=== PATIENT | female | born 1945 | race Native Hawaiian/Other Pacific Islander ===

== ENCOUNTER 2019-08-26 11:44 | Outpatient (CLI) | payer MEDICARE, SELFPAY | END 2019-08-26 11:45 | disposition home or self-care (01) | LOC: ANHLAB 11:44 | PROVIDERS: PCP Internal Medicine; Visit Provider Nurse Practitioner Family | DX: J30.9 Allergic rhinitis, unspecified (principal) | CPT/HCPCS: 36415; 82785; 86003 ==

== ENCOUNTER 2019-09-22 13:01 | Outpatient (CLI) | payer MEDICARE, SELFPAY ==
--- NOTE | 2019-09-22 13:04 | ECG_ITS ---
Measurements Intervals [place] Rate: 86 P: 57 MT: 169 QRS: 10 QRSD: 94 T: 48 QT: 373 QTc: 446 Interpretive Statements SINUS RHYTHM DELAYED PRECORDIAL R/S TRANSITION BASELINE ARTIFACT- I, II, III, AVR, AVL, AVF BORDERLINE ECG Electronically Signed On 09-22-2019 13:53:04 CDT by Cayetano Jung D.O.
[2019-09-22 13:25] LABS: Hemoglobin 13.1 g/dL (12.0-15.0)
[2019-09-22 13:37] LABS: Blood Urea Nitrogen 9 mg/dL (7-17); Calcium 9.4 mg/dL (8.4-10.2); Carbon Dioxide 25 mmol/L (22-30); Chloride 99 mmol/L (98-107); Estimated Glomerular Filt Rate > 60; Glucose 119 mg/dL (65-105); Potassium 3.7 mmol/L (3.4-5.0); Sodium 137 mmol/L (137-145)
== END 2019-09-22 13:02 | disposition home or self-care (01) ==
PROVIDERS: Anesthesiology; PCP Internal Medicine; Visit Provider Orthopaedic Surgery
DX: I10 Essential (primary) hypertension (principal); E11.9 Type 2 diabetes mellitus without complications; D50.0 Iron deficiency anemia secondary to blood loss (chronic); R94.31 Abnormal electrocardiogram [ECG] [EKG]
CPT/HCPCS: 36415; 80048; 85014; 85018; 93005

== ENCOUNTER 2019-11-25 08:21 | Outpatient (CLI) | payer MEDICARE, SELFPAY ==
[2019-11-25 08:39] LABS: Hemoglobin 11.5 g/dL (12.0-15.0)
[2019-11-25 08:58] LABS: Blood Urea Nitrogen 8 mg/dL (7-17); Calcium 9.3 mg/dL (8.4-10.2); Carbon Dioxide 30 mmol/L (22-30); Chloride 99 mmol/L (98-107); Estimated Glomerular Filt Rate > 60; Glucose 123 mg/dL (65-105); Potassium 3.7 mmol/L (3.4-5.0); Sodium 136 mmol/L (137-145)
== END 2019-11-25 08:22 | disposition home or self-care (01) ==
LOC: ANHSURGERY 08:24
PROVIDERS: Anesthesiology; PCP Internal Medicine; Visit Provider Orthopaedic Surgery
DX: E11.9 Type 2 diabetes mellitus without complications (principal); D50.0 Iron deficiency anemia secondary to blood loss (chronic)
CPT/HCPCS: 36415; 80048; 85014; 85018

== ENCOUNTER 2019-11-30 00:11 | Outpatient (CLI) | payer MEDICARE, SELFPAY ==
[2019-11-30 16:10] LABS: SARS-CoV-2 RNA PCR Negative
== END 2019-11-30 00:12 | disposition home or self-care (01) ==
LOC: ANHCOVIDDT 00:11
PROVIDERS: PCP Internal Medicine; Visit Provider Orthopaedic Surgery
DX: Z01.818 Encounter for other preprocedural examination (principal); Z11.59 Encounter for screening for other viral diseases; M75.101 Unspecified rotator cuff tear or rupture of right shoulder, not specified as traumatic
CPT/HCPCS: 87635; C9803; U0003

== ENCOUNTER 2019-12-02 01:29 | Day surgery (SDC) | payer MEDICARE, SELFPAY ==
[2019-09-17 12:38] VITALS: BMI 28.5
[2019-11-24 11:48] VITALS: BMI 28.5
--- NOTE | 2019-11-24 11:54 | PC.NURSE ---
PT STATES NO CHANGE IN HEALTH HX SINCE LAST INTERVIEW ON 09/17/19
--- NOTE | 2019-11-27 14:26 | PM.IMHP ---
H&P: HPI History of Present Illness Chief complaint: Right Rotator Cuff Repair Narrative: Jasmyn Moncada is a 74 year old female who presents with right shoulder pain chronic in nature. Pain radiates into her upper arm and is worse with overhead activities somewhat relieved by rest. She has weakness associated with the pain and problems raising her arm overhead. She can't do any heavy lifting or repetitive motion, the pain keeps her awake at night as well. Her symptoms are worsening with time. Despite conservative measures including cortisone therapy and anti-inflammatories or symptoms continue. An MRI scan was performed, this shows incomplete minimally retracted tear of the anterior aspect of the supraspinatus tendon of the right shoulder. She has small articular surface tear of the subscapularis tendon with a joint effusion. She has biceps tendon tenosynovitis without azeem evidence for a tear. There is mild hypertrophic degenerative change seen at the AC joint likely causing subacromial impingement. The infraspinatus and teres minor tendons are intact. At this point the patient is where the above findings she has failed conservative measures and discuss further treatment options in detail with Dr. Johnston she would now like to proceed with right shoulder surgical intervention. Review of Systems Review of Systems: All systems reviewed & are unremarkable except as noted in HPI and below PMFSH Past Medical History Medical History Acid reflux Anxiety and depression Arthritis Essential (primary) hypertension Fatty liver Heart palpitations History of anemia Hypothyroidism Hypovitaminosis D Iron deficiency anemia Lactic acidosis Major depressive disorder, single episode, unspecified Mixed hyperlipidemia On custodial drug therapy Post menopausal problems Thyroid disease Type 2 diabetes mellitus without complication Surgical History Surgical History H/O: hysterectomy Hx of cholecystectomy Hx of tonsillectomy Family History Family History Mother Hypertension Cerebrovascular accident Family history of diabetes mellitus in first degree relative Family history of congestive heart failure Father Family history of throat cancer Sibling Carcinoma of colon Family history of malignant neoplasm of breast Other Family history of coronary artery disease Social History Social History Smoking packs per day: 3 Smoking cigarettes per day: 60.0 Years smoked: 25 Smoking pack-years: 75.00 Smoking status: Former smoker Tobacco type: cigarettes Smoking end date: 07/08/06 Alcohol intake: never Gender identity (if verbalized by the patient): Female Meds Home Medications and Allergies Home Medications Medication Instructions Recorded Confirmed Type albuterol sulfate 2.5 mg INHALATION Q4H PRN 05/11/19 11/24/19 History albuterol sulfate 90 mcg/actuation 2 puff INHALATION Q4H PRN gm 05/11/19 11/24/19 History aerosol inhaler betamethasone dipropionate 0.05 % 1 applic TOPICAL DAILY PRN 05/11/19 11/24/19 History topical cream calcium carbonate 600 mg calcium 600 mg PO DAILY 05/11/19 11/24/19 History (1,500 mg) tablet cranberry fruit 450 mg tablet 450 mg PO DAILY 05/11/19 11/24/19 History pravastatin 20 mg tablet 20 mg PO DAILY #90 tablet 05/19/19 11/24/19 Rx losartan 100 1 tablet PO DAILY #90 tablet 05/29/19 11/24/19 Rx mg-hydrochlorothiazide 12.5 mg tablet benzonatate 200 mg capsule 200 mg PO TID PRN cap 06/25/19 11/24/19 History aspirin [Aspir-81] 81 mg PO DAILY 07/13/19 11/24/19 History ferrous sulfate 325 mg PO BID 07/13/19 11/24/19 History fluticasone propionate [Flonase 1 spray INTRANASAL DAILY 07/13/19 11/24/19 History Allergy Relief] sitagliptin [Januvia] 100 mg PO DAILY 07/13
[2019-12-02] VITALS (10 sets, daily range): BP systolic 135–154; BP diastolic 44–84; PULSE 83–97; RESP 11–20; TEMP 36.1–36.4; O2SAT 90–96
--- NOTE | 2019-12-02 07:11 | WPDHPUPDATE1 ---
History and Physical Update Update Date/Time: 12/02/19 07:11 History and Physical has been reviewed, including an updated exam of the patient. There are NO changes in the patient's condition. Risks, benefits, and alternatives have been discussed and questions answered. Patient agrees to proceed with procedure.
[2019-12-02 08:14] LABS: Glucose Point of Care 109 (65-105)
[2019-12-02] MEDS: LACTATED RINGERS 1,000 ML 30 ML IV CONT ×2 (08:15→11:20)
--- NOTE | 2019-12-02 08:21 | WPDANESEPPF ---
Anes - Initial Pre Proc Eval Procedure: Operation Date: 12/02/19 09:30 Proposed Procedures p Right Shoulder Arthroscopy, Acromioplasty, Open Distal Clavicle Excision, Rotator Cuff Repair, Proceed As Indicated - Lexx Johnston MD Date/Time: 12/02/19 08:21 Surgeon: Lexx Johnston MD Pre Op Diagnosis: Right Rotator Cuff Repair Patient Data Age: 74 Gender: F Height: 4 ft 11 in Weight: 63.2 kg Last Vital Signs Temp 36.4 C 12/02/19 07:45 Pulse 97 12/02/19 07:45 Resp 20 12/02/19 07:45 BP 135/56 L 12/02/19 07:45 Pulse Ox 96 12/02/19 07:45 Allergies Allergy/AdvReac Type Severity Reaction Status Date / Time codeine Allergy Unknown Unknown Verified 12/02/19 07:57 Home Medications Medication Instructions Recorded Confirmed Type albuterol sulfate 2.5 mg INHALATION Q4H PRN 05/11/19 11/24/19 History albuterol sulfate 90 mcg/actuation 2 puff INHALATION Q4H PRN gm 05/11/19 11/24/19 History aerosol inhaler betamethasone dipropionate 0.05 % 1 applic TOPICAL DAILY PRN 05/11/19 11/24/19 History topical cream calcium carbonate 600 mg calcium 600 mg PO DAILY 05/11/19 12/02/19 History (1,500 mg) tablet cranberry fruit 450 mg tablet 450 mg PO DAILY 05/11/19 12/02/19 History pravastatin 20 mg tablet 20 mg PO DAILY #90 tablet 05/19/19 12/02/19 Rx benzonatate 200 mg capsule 200 mg PO TID PRN cap 06/25/19 11/24/19 History aspirin [Aspir-81] 81 mg PO DAILY 07/13/19 12/02/19 History ferrous sulfate 325 mg PO BID 07/13/19 12/02/19 History fluticasone propionate [Flonase 1 spray INTRANASAL DAILY 07/13/19 12/02/19 History Allergy Relief] omeprazole 40 mg capsule,delayed 40 mg PO DAILY #90 cap 07/24/19 12/02/19 Rx release metformin 1,000 mg tablet 1,000 mg PO BID #180 tablet 08/11/19 12/02/19 Rx azelastine 137 mcg (0.1 %) nasal 137 mcg NASAL Q12H #30 ml 08/21/19 11/24/19 Rx spray aerosol glycopyrrolate 9 mcg-formoterol 2 puff INHALATION BID 08/21/19 12/02/19 History 4.8 mcg HFA aerosol inhaler levothyroxine 100 mcg tablet 100 mcg PO DAILY #90 tablet 09/28/19 12/02/19 Rx paroxetine HCl 10 mg tablet 10 mg PO DAILY #90 tablet 10/23/19 12/02/19 Rx montelukast 10 mg tablet See Rx Instructions .ROUTE 11/18/19 12/02/19 Rx .COMPLEX #90 tablet losartan 100 1 tablet PO DAILY #90 tablet 12/01/19 12/02/19 Rx mg-hydrochlorothiazide 12.5 mg tablet sitagliptin 100 mg tablet 100 mg PO DAILY #90 tablet 12/01/19 12/02/19 Rx hydrocodone-acetaminophen [Fajardo] 1 tablet PO Q6H PRN #40 tablet 12/02/19 Rx Laboratory Tests 12/02/19 08:11 POC Capillary Glucose 109 mg/dl mg/dl (65-105) Patient hx anesthesia problems: none Family hx anesthesia problems: none PMFSH Past Medical History Medical History Acid reflux Anxiety and depression Arthritis Essential (primary) hypertension Fatty liver Heart palpitations History of anemia Hypothyroidism Hypovitaminosis D Iron deficiency anemia Lactic acidosis Major depressive disorder, single episode, unspecified Mixed hyperlipidemia On senior living drug therapy Post menopausal problems Thyroid disease Type 2 diabetes mellitus without complication Surgical History Surgical History H/O: hysterectomy Hx of cholecystectomy Hx of tonsillectomy Family History Family History Mother Hypertension Cerebrovascular accident Family history of diabetes mellitus in first degree relative Family history of congestive heart failure Father Family history of throat cancer Sibling Carcinoma of colon Family history of malignant neoplasm of breast Other Family history of coronary artery disease Social History Social History Smoking packs per day: 3 Smoking cigarettes per day: 60.0 Years smoked: 25 Smoking pac
[2019-12-02] MEDS: ceFAZolin 2 GM/D5W 50 ML 2 GM/50 ML BAG IVPB (09:36)
[2019-12-02] MEDS: LIDO 1%/EPINEPHRINE 1:100,000 20 ML VIAL INFILTRATE (09:59)
--- NOTE | 2019-12-02 10:49 | P.OP_ITS ---
Procedure Note - Detailed Date of procedure: 12/02/19 Pre-op diagnosis: Right Rotator Cuff Repair, Acromioclavicular Arthr Post-op diagnosis: same Anesthesia: GETA Surgeon: Lexx Johnston MD Procedure: Patient brought to OR #&. General anesthetic administered. Standard, posterior, lateral and anterior superior portals made. Diagnostic arthroscopy performed. Large Rotator Cuff tear seen with 90% biceps rupture. Biceps debrided with an arthocare wand. Acromioplasty started. Subacromial decompression and synovium debrided. Shoulder opened. Distal clavicle removed (3mm). Edges bevelled. Deltoid split. Acromion rasped and large rotator cuff repair performed to debrided greater tuberosity. Augmented with a Juggernaut suture. Deltoid repaired to itself, the acromion and the trapezius with # 2 ethibond. Wound closed wit 2-0 vicryl and svitlana. Patient left the operating room in good condition. Transmission Maintenance Supervisor: Callum Mack Estimated blood loss (mL): 50 Drains: No Packing: No Pathology: none sent Complications: No immediate complications Condition: stable Disposition: PACU
[2019-12-02 12:14] LABS: Glucose Point of Care 109 (65-105)
--- NOTE | 2019-12-02 13:34 | SUR.PHASEII ---
DAUGHTER CALLED WHEN LEAVING PACU, AND IN OP. PT VOIDED X 1 IN RESTROOM.
== END 2019-12-02 13:30 | disposition home or self-care (01) ==
PROVIDERS: PCP Internal Medicine; Visit Provider Orthopaedic Surgery
PROC: (CPT 29805; principal; 2019-12-02 09:30)
DX: M75.101 Unspecified rotator cuff tear or rupture of right shoulder, not specified as traumatic (principal); M19.011 Primary osteoarthritis, right shoulder; I10 Essential (primary) hypertension; E11.9 Type 2 diabetes mellitus without complications; E78.2 Mixed hyperlipidemia; D50.9 Iron deficiency anemia, unspecified; E03.9 Hypothyroidism, unspecified; E55.9 Vitamin D deficiency, unspecified; F41.8 Other specified anxiety disorders; K21.9 Gastro-esophageal reflux disease without esophagitis; K76.0 Fatty (change of) liver, not elsewhere classified; Z79.82 Long term (current) use of aspirin; Z79.84 Long term (current) use of oral hypoglycemic drugs; Z87.891 Personal history of nicotine dependence
CPT/HCPCS: 29827; 29826; A4565; A9270; C1713; J0131; J0690; J1170; J2250; J2405; J2704; J3010; J7120

== ENCOUNTER 2020-01-01 07:52 | Outpatient (CLI) | payer MEDICARE, SELFPAY ==
[2020-01-01 09:08] LABS: Basophils Percent Auto 0.5 % (0.2-1.2); Eosinophils Absolute Auto 0.3 K/mm3 (0-0.3); Eosinophils Percent Auto 4.7 % (0-4.4); Hematocrit 32.7 % (37.0-47.0); Hemoglobin 10.1 g/dL (12.0-15.0); Immature Granulocyte Absolute 0.02 K/mm3 (0.00-0.031); Immature Granulocyte Percent A 0.3 % (0-0.5); Lymphocytes Absolute Auto 1.12 K/mm3 (0.9-3.2); Lymphocytes Percent Auto 17.5 % (18.3-44.2); Mean Corpuscular HGB Conc 30.9 g/dl (32-36); Mean Corpuscular Hemoglobin 27.7 pg (26-34); Mean Corpuscular Volume 89.8 fl (80-100); Mean Platelet Volume 8.8 fl (7.4-10.4); Monocytes Absolute Auto 0.4 K/mm3 (0.1-0.6); Monocytes Percent Auto 6.3 % (2.6-8.5); Neutrophils Absolute Auto 4.5 K/mm3 (1.3-6.7); Neutrophils Percent Auto 70.7 % (45.5-73.1); Platelet Count Result 477 k/mm3 (150-375); Red Blood Count 3.64 M/mm3 (4.2-5.4); Red Cell Distribution Width 15.3 % (11.5-14.5); White Blood Count 6.4 K/mm3 (4.5-10.0)
[2020-01-01 09:16] LABS: Hemoglobin A1C 5.8 % (<5.7)
[2020-01-01 09:22] LABS: Alanine Aminotransferase 16 U/L (4-35); Albumin Level 4.4 g/dL (3.5-5.1); Alkaline Phosphatase 63 U/L (38-126); Aspartate Amino Transferase 22 U/L (14-36); Bilirubin,Total 0.2 mg/dL (0.2-1.3); Blood Urea Nitrogen 8 mg/dL (7-17); Calcium 9.4 mg/dL (8.4-10.2); Carbon Dioxide 29 mmol/L (22-30); Chloride 98 mmol/L (98-107); Estimated Glomerular Filt Rate > 60; Glucose 109 mg/dL (65-105); Potassium 3.8 mmol/L (3.4-5.0); Sodium 136 mmol/L (137-145)
[2020-01-01 09:32] LABS: Iron 27 ug/dL (37-170)
[2020-01-01 09:41] LABS: Percent Iron Saturation 7 % (20-50)
[2020-01-01 10:08] LABS: Ferritin 8.71 ng/mL (11.1-264)
[2020-01-01 18:08] LABS: Creatinine Urine 58.2 mg/dL
[2020-01-01 18:42] LABS: MALB Creatinine Ratio < 10.3 mg/g (0-30); Microalbumin Urine Random < 6.0 mg/L (0-16.7)
== END 2020-01-01 07:53 | disposition home or self-care (01) ==
PROVIDERS: PCP Internal Medicine; Visit Provider Internal Medicine
DX: D50.0 Iron deficiency anemia secondary to blood loss (chronic) (principal); E11.9 Type 2 diabetes mellitus without complications
CPT/HCPCS: 36415; 80053; 82043; 82728; 83036; 83540; 83550; 85025

== ENCOUNTER 2020-03-30 10:46 | Outpatient (CLI) | payer MEDICARE, SELFPAY ==
[2020-03-30 11:25] LABS: Basophils Percent Auto 0.5 % (0.2-1.2); Eosinophils Absolute Auto 0.2 K/mm3 (0-0.3); Eosinophils Percent Auto 3.1 % (0-4.4); Hematocrit 38.9 % (37.0-47.0); Hemoglobin 12.7 g/dL (12.0-15.0); Immature Granulocyte Absolute 0.03 K/mm3 (0.00-0.031); Immature Granulocyte Percent A 0.4 % (0-0.5); Lymphocytes Absolute Auto 1.22 K/mm3 (0.9-3.2); Lymphocytes Percent Auto 16.4 % (18.3-44.2); Mean Corpuscular HGB Conc 32.6 g/dl (32-36); Mean Corpuscular Hemoglobin 28.7 pg (26-34); Mean Corpuscular Volume 87.8 fl (80-100); Mean Platelet Volume 9.2 fl (7.4-10.4); Monocytes Absolute Auto 0.5 K/mm3 (0.1-0.6); Monocytes Percent Auto 7.1 % (2.6-8.5); Neutrophils Absolute Auto 5.4 K/mm3 (1.3-6.7); Neutrophils Percent Auto 72.5 % (45.5-73.1); Platelet Count Result 430 k/mm3 (150-375); Red Blood Count 4.43 M/mm3 (4.2-5.4); Red Cell Distribution Width 15.9 % (11.5-14.5); White Blood Count 7.5 K/mm3 (4.5-10.0)
[2020-03-30 11:33] LABS: Hemoglobin A1C 5.4 % (<5.7)
[2020-03-30 11:36] LABS: Alanine Aminotransferase 21 U/L (4-35); Albumin Level 4.5 g/dL (3.5-5.1); Alkaline Phosphatase 55 U/L (38-126); Anion Gap 11 mmol/L (8-16); Aspartate Amino Transferase 25 U/L (14-36); Bilirubin,Total 0.2 mg/dL (0.2-1.3); Blood Urea Nitrogen 7 mg/dL (7-17); Calcium 9.5 mg/dL (8.4-10.2); Carbon Dioxide 25 mmol/L (22-30); Chloride 100 mmol/L (98-107); Cholesterol 164 mg/dL (0-200); Estimated Glomerular Filt Rate > 60; Glucose 122 mg/dL (65-105); HDL Direct 46 mg/dL; Potassium 3.8 mmol/L (3.4-5.0); Sodium 136 mmol/L (137-145); Triglycerides 158 mg/dL (<150)
[2020-03-30 11:47] LABS: LDL Cholesterol Direct 90 mg/dL
[2020-03-30 12:26] LABS: Add Urine Microscopic? NO; Appearance Urine Clear (Clear); Bilirubin Urine Negative (Negative); Blood Urine Negative (Negative); Color Urine Yellow (Yellow); Glucose Urine UA Negative (Negative); Ketones Urine Negative (Negative); Leukocyte Esterase Ur Negative LEU/UL (NEGATIVE); Nitrate Urine Negative (Negative); Protein Urine Negative (Negative); Specific Grav Ur 1.011 (1.001-1.035); Urobilinogen Urine Negative mg/dL (<2.0)
[2020-03-30 12:27] LABS: Iron 62 ug/dL (37-170)
[2020-03-30 12:37] LABS: Percent Iron Saturation 18 % (20-50)
[2020-03-30 12:53] LABS: Vitamin D 25 Hydroxy 33.5 ng/mL
== END 2020-03-30 10:47 | disposition home or self-care (01) ==
LOC: ANHLAB 10:48
PROVIDERS: PCP Internal Medicine; Visit Provider Internal Medicine
DX: J44.9 Chronic obstructive pulmonary disease, unspecified (principal); E11.9 Type 2 diabetes mellitus without complications; E03.9 Hypothyroidism, unspecified; D50.0 Iron deficiency anemia secondary to blood loss (chronic); I10 Essential (primary) hypertension; E78.2 Mixed hyperlipidemia; E55.9 Vitamin D deficiency, unspecified
CPT/HCPCS: 36415; 80053; 80061; 81003; 82306; 82728; 83036; 83540; 83550; 84443; 85025

== ENCOUNTER 2020-05-25 10:22 | Outpatient (CLI) | payer MEDICARE, SELFPAY ==
--- NOTE | ~2020-05-25 | CT_ITS ---
EXAMINATION:CT lung screening DATE: 05/25/2020 10:53 INDICATION: Personal history of tobacco dependence. Smoker who quit 13 years ago with 30 pack year hi story. TECHNIQUE: Computed tomography (CT) of the chest was performed without intravenous contrast. Automate d exposure control and iterative reconstruction technique were employed. The dose-length product (DLP ) was 65.52 mGy-cm. COMPARISON: Chest CT 05/19/2019 FINDINGS: There is mild atelectasis bilaterally. No pleural effusion. The thyroid is enlarged. The he art size is normal. There are coronary artery calcifications. No pericardial effusion. There are ziegler ges of cholecystectomy. There is severe thoracic spondylosis. IMPRESSION: 1. Lung-RADS category 1: Negative. Continue annual screening with noncontrast low-dose chest CT in 12 months. Reviewed, dictated and finalized at location A. STATION DEPARTMENT MANAGER IMPRESSION: 1. Lung-RADS category 1: Negative. Continue annual screening with noncontrast l ow-dose chest CT in 12 months.
== END 2020-05-25 10:23 | disposition home or self-care (01) ==
PROVIDERS: PCP Internal Medicine; Visit Provider Internal Medicine Critical Care Medicine
DX: Z12.2 Encounter for screening for malignant neoplasm of respiratory organs (principal); Z87.891 Personal history of nicotine dependence
CPT/HCPCS: G0297

== ENCOUNTER 2020-07-22 15:33 | Outpatient (CLI) | payer MEDICARE, SELFPAY ==
--- NOTE | ~2020-07-22 | XR_ITS ---
EXAMINATION: XR chest 2V DATE: 07/22/2020 16:20 INDICATION: Shortness of breath. TECHNIQUE: Frontal and lateral views of the chest were obtained. COMPARISON: Chest 2 views 11/26/2017 FINDINGS: The chest demonstrates clear lungs without pneumonia, pleural effusion, or pneumothorax. Th e heart size is normal. Surgical clips in the right upper quadrant are likely from cholecystectomy. IMPRESSION: 1. No acute cardiopulmonary disease. Reviewed, dictated and finalized at location A. SWARE VERIFIER
== END 2020-07-22 15:34 | disposition home or self-care (01) ==
PROVIDERS: PCP Internal Medicine; Visit Provider Nurse Practitioner Family
DX: R06.02 Shortness of breath (principal)
CPT/HCPCS: 71046

== ENCOUNTER 2020-07-28 08:14 | Outpatient (CLI) | payer MEDICARE, SELFPAY ==
[2020-07-28 08:45] LABS: Hematocrit 23.5 % (37.0-47.0); Mean Corpuscular HGB Conc 27.2 g/dl (32-36); Mean Corpuscular Hemoglobin 24.5 pg (26-34); Mean Platelet Volume 9.7 fl (7.4-10.4); Platelet Count Result 583 k/mm3 (150-375); Red Blood Count 2.61 M/mm3 (4.2-5.4); Red Cell Distribution Width 16.5 % (11.5-14.5); White Blood Count 9.9 K/mm3 (4.5-10.0)
[2020-07-28 08:54] LABS: Hemoglobin 6.4 g/dL (12.0-15.0)
[2020-07-28 09:56] LABS: Iron < 10 ug/dL (37-170)
[2020-07-28 10:07] LABS: Percent Iron Saturation < 2 % (20-50)
[2020-07-28 10:32] LABS: Ferritin 4.22 ng/mL (11.1-264)
[2020-07-28 11:32] LABS: Folic Acid 17.6 ng/mL (2.76->20)
== END 2020-07-28 08:15 | disposition home or self-care (01) ==
LOC: ANHLAB 08:16
PROVIDERS: Family Provider Internal Medicine; PCP Internal Medicine; Visit Provider Nurse Practitioner Family
DX: D50.0 Iron deficiency anemia secondary to blood loss (chronic) (principal)
CPT/HCPCS: 36415; 82607; 82728; 82746; 83540; 83550; 85027

== ENCOUNTER 2020-07-28 10:30 | Observation (INO) | payer MEDICARE, SELFPAY ==
[2020-07-28] VITALS (18 sets, daily range): BP systolic 111–157; BP diastolic 35–99; PULSE 62–113; RESP 12–21; TEMP 36.1–36.6; O2SAT 97–100; BMI 27.6
[2020-07-28 12:34] LABS: Basophils Absolute Auto 0.1 K/mm3 (0.0-0.1); Basophils Percent Auto 0.5 % (0.2-1.2); Eosinophils Absolute Auto 0.1 K/mm3 (0-0.3); Eosinophils Percent Auto 0.6 % (0-4.4); Hematocrit 24.6 % (37.0-47.0); Immature Granulocyte Absolute 0.14 K/mm3 (0.00-0.031); Immature Granulocyte Percent A 1.3 % (0-0.5); Immature Platelet Fraction Pct 3.1 % (0.9-11.2); Immature Reticulocyte Fraction 41.9 % (3.0-15.9); Lymphocytes Absolute Auto 1.08 K/mm3 (0.9-3.2); Lymphocytes Percent Auto 9.8 % (18.3-44.2); Mean Corpuscular HGB Conc 26.8 g/dl (32-36); Mean Corpuscular Hemoglobin 24.3 pg (26-34); Mean Corpuscular Volume 90.4 fl (80-100); Mean Platelet Volume 9.9 fl (7.4-10.4); Monocytes Percent Auto 9.3 % (2.6-8.5); Neutrophils Absolute Auto 8.6 K/mm3 (1.3-6.7); Neutrophils Percent Auto 78.5 % (45.5-73.1); Nucleated Red Blood Cells Absolute Auto 0.2 K/mm3 (0.0-0.012); Nucleated Red Blood Cells Perc 1.5 % (0.0-0.2); Platelet Count Result 675 k/mm3 (150-375); Red Blood Count 2.72 M/mm3 (4.2-5.4); Red Cell Distribution Width 16.6 % (11.5-14.5); Reticulocyte Hemoglobin Conten 18.5 pg (28.2-35.7); Reticulocyte Percent 6.73 % (0.7-4.3); Reticulocytes Absolute 0.18 B/L (32.2-175.7)
[2020-07-28 12:38] LABS: Prothrombin Time 13.3 Seconds (11.1-14.7)
[2020-07-28 12:42] LABS: Anion Gap 11 mmol/L (8-16); Blood Urea Nitrogen 13 mg/dL (7-17); Carbon Dioxide 26 mmol/L (22-30); Chloride 99 mmol/L (98-107); Estimated Glomerular Filt Rate > 60; Glucose 112 mg/dL (65-105); Potassium 3.4 mmol/L (3.4-5.0); Sodium 136 mmol/L (137-145)
[2020-07-28 12:47] LABS: Hemoglobin 6.6 g/dL (12.0-15.0)
[2020-07-28 12:48] LABS: Hypochromasia 2+ (NORMAL); Ovalocytes 2+ (NORMAL)
[2020-07-28 12:49] LABS: Polychromasia 1+ (NORMAL)
[2020-07-28 12:51] LABS: Band Neutrophils Percent 8 % (0-6); Lymphocytes Absolute Manual 1.21 K/mm3 (1.1-4.5); Monocytes Absolute Manual 0.11 K/mm3 (0.1-0.90); Monocytes Percent Manual 1 % (3-9); Neutrophils Absolute Manual 9.68 K/mm3 (1.7-7.2); Neutrophils Percent Manual 80 % (46-73); Nucleated Red Blood Cells 2 %; Platelet Estimate Adequate (Adequate); Total Cells Counted 100
--- NOTE | 2020-07-28 13:15 | ED.RECABL ---
HPI - Recheck/Abnormal Lab/Rx General Chief Complaint: Recheck/Abnormal Lab/Rx Stated Complaint: Needs Blood Transfusion Time Seen by Provider: 07/28/20 11:27 Source: patient Mode of arrival: ambulatory Limitations: no limitations History of Present Illness HPI narrative: 74-year-old female History of recurrent iron deficiency anemia, probably related to GI blood loss Has seen Dr. Sands as well as Dr. Lewis previously and sounds like most of her issues stem from colonic AVMs Has also seen Dr. Marc at some point and had iron infusions She was sent by her PCP because labs they obtained today showed a hemoglobin of 6.4 as well as iron and ferritin levels which were essentially nil She denies hematemesis melena bloody stools but notes that she does take iron so her stools are always dark She feels generally weak and fatigued for an indefinite amount of time but not worse anytime recently Related Data Home Medications Medication Instructions Recorded Confirmed albuterol sulfate 2.5 mg INHALATION Q4H PRN 05/11/19 07/27/20 betamethasone dipropionate 0.05 % 1 applic TOPICAL DAILY PRN 05/11/19 07/27/20 topical cream calcium carbonate 600 mg calcium 600 mg PO DAILY 05/11/19 07/27/20 (1,500 mg) tablet cranberry fruit 450 mg tablet 450 mg PO DAILY 05/11/19 07/27/20 aspirin [Aspir-81] 81 mg PO DAILY 07/13/19 07/27/20 ferrous sulfate 325 mg PO BID 07/13/19 07/27/20 fluticasone propionate [Flonase 1 spray INTRANASAL DAILY 07/13/19 07/27/20 Allergy Relief] sitagliptin 100 mg tablet 100 mg PO DAILY 07/11/20 07/27/20 Allergies Allergy/AdvReac Type Severity Reaction Status Date / Time codeine Allergy Unknown Unknown Verified 07/28/20 10:36 Review of Systems Review of Systems: All systems reviewed & are unremarkable except as noted in HPI and below Constitutional: Constitutional: Denies chills, Reports fatigue, Denies fever(s), Denies headache(s) and Reports weakness Eyes: Eyes: Reports no additional eye complaints and Denies change in vision ENT: Denies headache(s), Denies epistaxis, Denies nasal congestion and Denies sore throat Cardiovascular: Cardiovascular: Denies chest pain, Denies leg edema, Denies palpitations and Denies dyspnea Respiratory: Respiratory: Denies cough, Denies dyspnea and Denies wheezing Gastrointestinal: Gastrointestinal: Denies abdominal pain, Denies diarrhea, Denies nausea and Denies vomiting Genitourinary: Genitourinary: Denies hematuria, Denies urinary frequency and Denies dysuria Musculoskeletal: Musculoskeletal: Denies deformity, Denies arthralgias, Denies joint swelling, Denies muscle weakness and Denies numbness Integumentary/Breasts: Skin/Breast: Denies rash and Denies wounds Neurologic: Denies headache(s), Denies focal weakness, Denies numbness and Denies weakness Psychiatric: Psychiatric: Reports no additional psychiatric complaints Endocrine: Endocrine: Denies fatigue and Denies palpitations Hematologic/Lymphatic: Hematologic/Lymphatic: Denies easy bleeding and Denies easy bruising Allergic/Immunologic: Allergic/Immunologic: Denies wheezing PMFSH Past Medical History Medical History Acid reflux Anxiety and depression Arthritis Encounter for other screening for malignant neoplasm of breast Essential (primary) hypertension Fatty liver Heart palpitations History of anemia History of tobacco use Hypothyroidism Hypovitaminosis D Iron deficiency anemia Lactic acidosis Major depressive disorder, single episode, unspecified Mixed hyperlipidemia On intermodal truck driver drug therapy Post menopausal problems Thyroid disease Tobacco abuse Type 2 diabetes mellitus without complication Surgical History Surgical History H/O: hysterectomy History of rotator cuff surgery Hx of cholecystectomy Hx of tonsillectomy Family History Family History (Reviewed 07/27/20 @ 14:17 by Sarah
[2020-07-28] MEDS: SODIUM CHLORIDE 0.9% IV 250 ML 30 ML IV CONT (15:00)
--- NOTE | 2020-07-28 15:01 | ADMGEN ---
This patient, Jasmyn Moncada, was admitted to Medical Room 250-. Patient/family oriented to hospital policies and general routines including ID bracelet, bed and alarms, visiting hours, pain management, procedures, bathroom and other care routines, personal items, smoking policy, room service/diet, and visiting hours. Information on how to activate the Rapid Response Team has been discussed. Patient/Family are encouraged to report perceived risks to care and to ask questions if they do not understand what they are told or what they should do.
--- NOTE | 2020-07-28 16:00 | PM.IMHP ---
H&P: HPI History of Present Illness Date/Time: 07/28/20 16:00 Chief Complaint: Low hemoglobin. Narrative: This is a 74-year-old female with history of GERD, esophageal erosions, AV malformations, iron deficiency anemia, hypertension, and diabetes who presented to the emergency department earlier today the direction of her primary care provider for further evaluation after she was found to have a low hemoglobin on labs drawn earlier this morning. She has been feeling short of breath for a little over week and spoke with Dewayne Macedo PATIENT FINANCIAL SERVICES MANAGER with the pulmonology group regarding such last Saturday. He ordered a chest x-ray which was unremarkable and for further evaluation he astutely ordered labs today, revealing profound anemia and she was directed to the emergency department. She has chronic dark stools as she is on iron supplementation (of which she states 100% compliance) but recently she has noticed a small amount of blood around the outside of the toilet bowl. In addition to shortness of breath she also endorses lightheadedness and weak, aching legs. She denies epigastric and abdominal discomfort. No bloating, nausea, or vomiting. No hematemesis or hematochezia. Review of Systems Review of Systems: Narrative: Twelve systems were reviewed with pertinent positives and negatives as per HPI. No fever, chills, or sweats. No recent cold or flu symptoms. She denies chest pain and pleuritic pain. Glucose has been running a bit higher than usual, as high as 150 over the last week, which is unusual for her. Typically that only occurs when she has infection, of which she has no symptoms at this time. No dysuria or diarrhea. Except as documented, all other systems were reviewed and are negative. [facility] Past Medical History Medical History (Updated 07/28/20 @ 16:33 by Joselyn Burton PA-C) Anxiety and depression Arthritis Chronic obstructive pulmonary disease Essential hypertension Fatty liver Gastroesophageal reflux disease History of tobacco use Roughly 120 pack year smoking history, quit in 2006. Hypothyroidism Hypovitaminosis D Iron deficiency anemia With history of blood transfusions, on iron supplementations. Had previously received iron infusions per Dr. Marc. Major depressive disorder, single episode, unspecified Mixed hyperlipidemia Palpitations (~10/2017) Echocardiogram and Holter monitor were unrevealing. Thyroid disease Type 2 diabetes mellitus without complication Hemoglobin A1c was 5.4% in 03/2020. Surgical History Surgical History (Updated 07/28/20 @ 16:27 by Joselyn Burton PA-C) History of appendectomy History of bilateral carpal tunnel release History of cholecystectomy History of partial hysterectomy History of rotator cuff surgery History of tonsillectomy Family History Family History Mother Hypertension Cerebrovascular accident Family history of diabetes mellitus in first degree relative Family history of congestive heart failure Father Family history of throat cancer Sibling Carcinoma of colon Family history of malignant neoplasm of breast Other Family history of coronary artery disease Social History Social History (Updated 07/28/20 @ 16:29 by Joselyn Burton PA-C) Social History: The patient is and lives with her in [place]. 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 She is a former smoker, up to 3 packs a day, and quit in 2006. No alcohol or illicit substance abuse. She designates her daughter, Veronica, as her surrogate decision maker and she wishes to be a full code. Smoking packs per day: 3 Smoking cigarettes per day: 60.0 Years smoked: 40 Smoking pack-years: 120.00 Smoking status: Former smoker Tobacco type: cigarettes Smoking end date: 07/08/06 Alcohol intake: never Substance use: never Substance use type: does not use Gender identity (if verbalized by the patient): Female Spiritual care
--- NOTE | 2020-07-28 16:13 | WPDGICN ---
Assessment and Plan Assessment and plan (1) Severe anemia: Code(s): D64.9 - Anemia, unspecified Status: Acute Assessment and Plan: Patient has a history of chronic anemia this appears to have worsened recently. Suspicious for GI blood loss. She does have a history of angiodysplasias of the colon, history of colon polyps and history of large internal hemorrhoids. Given her profound decline in hemoglobin plan is for transfusion follow-up colonoscopy is anticipated at this time after preparation. (2) Angiodysplasia of colon: Code(s): K55.20 - Angiodysplasia of colon without hemorrhage Status: Acute Assessment and Plan: Patient known to have angiodysplasias of the colon most recently cecal angiodysplasia cauterized 2017. Given her profound anemia follow-up colonoscopy possible additional cautery will be planned in the morning. (3) History of colon polyps: Code(s): Z86.010 - Personal history of colonic polyps Status: Acute Assessment and Plan: Patient has a history of adenomatous colon polyps in the past. Given her profound anemia follow-up colonoscopy will be arranged at this time. Intermittent follow-up at 3-5 year intervals is otherwise suggested. GI Consult Note Consult date/time: 07/28/20 16:13 HPI: Jasmyn Moncada is a 74 year old female seen in evaluation at the request of the emergency room. Patient reports progressive fatigue over last 2-3 weeks. She underwent lab testing and was found to be profoundly anemic. Patient was sent to the emergency room and subsequently admitted for transfusion. She has a past history of chronic anemia for which she has seen Hematology. Previous GI evaluation has revealed angiodysplasias of the cecum. She has very large internal hemorrhoids. She has had adenomatous colon polyps in the past. Most recent colonoscopy was in 2017. Patient is maintained on chronic iron replacement her stools are always dark. She states there has been no particular change in this. She occasionally feels there may be a red tinge to her stools. She denies abdominal pain. Her bowel habits are otherwise regular and normal. Review of Systems Review of Systems: All systems reviewed & are unremarkable except as noted in HPI and below PMFSH Past Medical History Medical History Acid reflux Anxiety and depression Arthritis Encounter for other screening for malignant neoplasm of breast Essential (primary) hypertension Fatty liver Heart palpitations History of anemia History of tobacco use Hypothyroidism Hypovitaminosis D Iron deficiency anemia Lactic acidosis Major depressive disorder, single episode, unspecified Mixed hyperlipidemia On [facility] drug therapy Post menopausal problems Thyroid disease Tobacco abuse Type 2 diabetes mellitus without complication Surgical History Surgical History H/O: hysterectomy History of rotator cuff surgery Hx of cholecystectomy Hx of tonsillectomy Family History Family History Mother Hypertension Cerebrovascular accident Family history of diabetes mellitus in first degree relative Family history of congestive heart failure Father Family history of throat cancer Sibling Carcinoma of colon Family history of malignant neoplasm of breast Other Family history of coronary artery disease Social History Social History Smoking packs per day: 3 Smoking cigarettes per day: 60.0 Years smoked: 40 Smoking pack-years: 120.00 Smoking status: Former smoker Tobacco type: cigarettes Smoking end date: 07/08/06 Additional smoking assessment comments: started smoking at age 17 Alcohol intake: never Substance use: never Substance use type: does not use Gender identity (if verbalized by the p
[2020-07-28] MEDS: PEG (High)/E-LYTE SOLN 4,000 ML BTL 4000 ML PO (17:18)
[2020-07-28] MEDS: FERROUS SULFATE 324 MG TABLET PO (18:37)
[2020-07-28] MEDS: PANTOPRAZOLE SODIUM IV 40 MG VIAL IV PUSH (18:37)
[2020-07-28] MEDS: AZELASTINE HCL NASAL 0.1% 137 MCG/SPR 30 ML BTL 1 SPRAY NASAL (21:00)
[2020-07-28] MEDS: MONTELUKAST SODIUM 10 MG TABLET BY MOUTH (21:00)
[2020-07-28] MEDS: ALBUTEROL SULFATE NEB 2.5 MG/3 ML INH INHALATION (22:00)
[2020-07-28 23:05] LABS: Hematocrit 33.9 % (37.0-47.0); Hemoglobin 9.9 g/dL (12.0-15.0)
[2020-07-28 23:10] LABS: Glucose Point of Care 74 (65-105)
[2020-07-28] MEDS: SODIUM CHLORIDE 0.9% IV 1,000 ML 60 ML IV CONT (23:45)
[2020-07-29] VITALS (9 sets, daily range): BP systolic 113–131; BP diastolic 52–73; PULSE 71–82; RESP 16–20; TEMP 36.5–36.9; O2SAT 93–99
[2020-07-29 05:30] LABS: Basophils Absolute Auto 0.1 K/mm3 (0.0-0.1); Basophils Percent Auto 0.7 % (0.2-1.2); Eosinophils Absolute Auto 0.1 K/mm3 (0-0.3); Eosinophils Percent Auto 1.8 % (0-4.4); Hematocrit 28.1 % (37.0-47.0); Hemoglobin 8.4 g/dL (12.0-15.0); Immature Granulocyte Absolute 0.06 K/mm3 (0.00-0.031); Immature Granulocyte Percent A 0.8 % (0-0.5); Lymphocytes Absolute Auto 2.07 K/mm3 (0.9-3.2); Mean Corpuscular HGB Conc 29.9 g/dl (32-36); Mean Corpuscular Volume 83.6 fl (80-100); Mean Platelet Volume 9.7 fl (7.4-10.4); Monocytes Absolute Auto 0.7 K/mm3 (0.1-0.6); Monocytes Percent Auto 9.2 % (2.6-8.5); Neutrophils Absolute Auto 4.4 K/mm3 (1.3-6.7); Neutrophils Percent Auto 59.5 % (45.5-73.1); Nucleated Red Blood Cells Absolute Auto 0.1 K/mm3 (0.0-0.012); Nucleated Red Blood Cells Perc 1.9 % (0.0-0.2); Platelet Count Result 482 k/mm3 (150-375); Red Blood Count 3.36 M/mm3 (4.2-5.4); Red Cell Distribution Width 16.8 % (11.5-14.5); White Blood Count 7.4 K/mm3 (4.5-10.0)
[2020-07-29 05:46] LABS: Alanine Aminotransferase 15 U/L (4-35); Albumin Level 3.4 g/dL (3.5-5.1); Alkaline Phosphatase 35 U/L (38-126); Anion Gap 4 mmol/L (8-16); Aspartate Amino Transferase 24 U/L (14-36); Bilirubin,Total 0.7 mg/dL (0.2-1.3); Blood Urea Nitrogen 10 mg/dL (7-17); Calcium 8.2 mg/dL (8.4-10.2); Carbon Dioxide 29 mmol/L (22-30); Chloride 104 mmol/L (98-107); Estimated Glomerular Filt Rate > 60; Glucose 92 mg/dL (65-105); Magnesium 1.8 mg/dL (1.6-2.3); Potassium 3.6 mmol/L (3.4-5.0); Sodium 137 mmol/L (137-145)
[2020-07-29 05:54] LABS: Platelet Estimate Adequate (Adequate)
[2020-07-29 05:55] LABS: Hypochromasia 1+ (NORMAL); Macrocytosis 1+ (NORMAL)
[2020-07-29 07:53] LABS: Glucose Point of Care 91 (65-105)
--- NOTE | 2020-07-29 07:57 | PC.NURSE ---
To GI Lab per wheelchair, IV intact. Report given to GENE Shaw.
[2020-07-29] MEDS: LACTATED RINGERS 1,000 ML 150 ML IV CONT (08:05)
--- NOTE | 2020-07-29 09:00 | WPDANESEPPF ---
Anes - Initial Pre Proc Eval Procedure: Operation Date: 07/29/20 09:30 Proposed Procedures p Colonoscopy, Possible Esophagogastroduodenoscopy - Ruperto Martinez MD Date/Time: 07/29/20 09:00 Surgeon: Mirian Nettles PA-C Pre Op Diagnosis: severe anemia/gi bleeding Patient Data Age: 74 Gender: F Height: 4 ft 11 in Weight: 62 kg Last Vital Signs Temp 98.0 F 07/29/20 08:14 Pulse 76 07/29/20 08:14 Resp 16 07/29/20 08:14 BP 131/64 07/29/20 08:14 Pulse Ox 97 07/29/20 08:14 Allergies Allergy/AdvReac Type Severity Reaction Status Date / Time codeine Allergy Unknown Unknown Verified 07/28/20 15:18 Home Medications Medication Instructions Recorded Confirmed Type betamethasone dipropionate 0.05 % 1 applic TOPICAL DAILY PRN 05/11/19 07/28/20 History topical cream cranberry fruit 450 mg tablet 450 mg PO DAILY 05/11/19 07/28/20 History aspirin [Aspir-81] 81 mg PO DAILY 07/13/19 07/28/20 History ferrous sulfate 325 mg PO BID 07/13/19 07/28/20 History fluticasone propionate [Flonase 1 spray INTRANASAL DAILY 07/13/19 07/28/20 History Allergy Relief] azelastine 137 mcg (0.1 %) nasal 137 mcg NASAL Q12H #30 ml 08/21/19 07/28/20 Rx spray aerosol blood-glucose meter #1 each 12/24/19 07/28/20 Rx metformin 1,000 mg tablet 1,000 mg PO BID #180 tablet 02/15/20 07/28/20 Rx montelukast 10 mg tablet See Rx Instructions .ROUTE 02/15/20 07/28/20 Rx .COMPLEX #90 tablet pravastatin 20 mg tablet 20 mg PO DAILY #90 tablet 02/15/20 07/28/20 Rx blood sugar diagnostic #100 each 02/25/20 07/28/20 Rx lancets #300 each 02/25/20 07/28/20 Rx losartan 100 1 tablet PO DAILY #90 tablet 05/25/20 07/28/20 Rx mg-hydrochlorothiazide 12.5 mg tablet levothyroxine 100 mcg tablet See Rx Instructions .ROUTE 07/06/20 07/28/20 Rx .COMPLEX #90 tablet sitagliptin 100 mg tablet 100 mg PO DAILY 07/11/20 07/28/20 History omeprazole 40 mg capsule,delayed See Rx Instructions .ROUTE 07/18/20 07/28/20 Rx release .COMPLEX #90 cap paroxetine HCl 10 mg tablet See Rx Instructions .ROUTE 07/18/20 07/28/20 Rx .COMPLEX #90 tablet albuterol [Ventolin] 90 mcg INHALATION Q4-6H PRN 07/28/20 07/28/20 History albuterol sulfate 2.5 mg INHALATION HS 07/28/20 07/28/20 History benzonatate 200 mg PO TID PRN 07/28/20 07/28/20 History calcium carbonate-vit D3-min 1 tablet PO DAILY 07/28/20 07/28/20 History [Calcium-Vitamin D] glycopyrrolate-formoterol [Bevespi 2 puff INHALATION BID 07/28/20 07/28/20 History Aerosphere] Laboratory Tests 07/28/20 07/28/20 07/28/20 12:23 12:23 12:23 WBC 11.0 K/mm3 H K/mm3 (4.5-10.0) RBC 2.72 M/mm3 L M/mm3 (4.2-5.4) Hgb 6.6 g/dL L* g/dL (12.0-15.0) Hct 24.6 % L % (37.0-47.0) MCV 90.4 fl fl (80-100) MCH 24.3 pg L pg (26-34) MCHC 26.8 g/dl L g/dl (32-36) RDW 16.6 % H % (11.5-14.5) Plt Count 675 k/mm3 H k/mm3 (150-375) MPV 9.9 fl fl (7.4-10.4) Immature Gran % (Auto) 1.3 % H % (0-0.5) Neut % (Auto) 78.5 % H % (45.5-73.1) Lymph % (Auto) 9.8 % L % (18.3-44.2) [place] % (Auto) 9.3 % H % (2.6-8.5) Eos % (Auto) 0.6 % % (0-4.4) Baso % (Auto) 0.5 % % (0.2-1.2) Lymph # (Auto) 1.08 K/mm3 K/mm3 (0.9-3.2) [place] # (Auto) 1.0 K/mm3 H K/mm3 (0.1-0.6) Eos # (Auto) 0.1 K/mm3 K/mm3 (0-0.3) Baso # (Auto) 0.1 K/mm3 K/mm3 (0.0-0.1) Abs Immat Gran (auto) 0.14 K/mm3 H K/mm3 (0.00-0.031) Absolute Neuts (auto) 8.6 K/mm3 H K/mm3 (1.3-6.7) Absolute Nucleated RBC 0.2 K/mm3 H K/mm3 (0.0-0.012) Total Counted 100 Neutrophils % (Manual) 80 % H % (46-73) Band Neutrophils % 8 % H % (0-6) Lymphocytes % (Manual) 11.0 % L % (18-44) Monocytes % (Manual) 1 % L % (3-9) Nucleated RBC % 1.5 % H % (0.0-0
[2020-07-29 09:24] LABS: Free T4 Free Thyroxine Reflex 1.14 ng/dL (0.78-2.19)
--- NOTE | 2020-07-29 09:40 | SUR.OPER ---
colonoscopy completed at 928, egd started at 934
[2020-07-29 09:52] LABS: Glucose Point of Care 93 (65-105)
--- NOTE | 2020-07-29 10:39 | PC.NURSE ---
Returned from GI Lab.
[2020-07-29] MEDS: FERROUS SULFATE 324 MG TABLET PO (10:46)
[2020-07-29] MEDS: PARoxetine 10 MG TABLET BY MOUTH (10:46)
[2020-07-29] MEDS: LOSARTAN POTASSIUM 100 MG TABLET PO (10:47)
[2020-07-29] MEDS: AZELASTINE HCL NASAL 0.1% 137 MCG/SPR 30 ML BTL 1 SPRAY NASAL ×2 (10:47→22:24)
[2020-07-29] MEDS: hydroCHLOROthiazide 12.5 MG CAPSULE PO (10:47)
[2020-07-29] MEDS: LEVOTHYROXINE SODIUM 100 MCG TABLET BY MOUTH (10:47)
[2020-07-29] MEDS: FLUTICASONE PROPIONATE 0.05% NA SPR 16 GM BTL (*BKC) 1 SPRAY NASAL (10:47)
[2020-07-29] MEDS: PRAVASTATIN SODIUM 20 MG TABLET PO (11:08)
--- NOTE | 2020-07-29 11:25 | PM.IMPN ---
Progress Note: A&P Assessment and Plan (1) Profound anemia: Code(s): D64.9 - Anemia, unspecified Status: Acute Assessment and Plan: Secondary to iron deficiency. She has history of chronic iron deficiency anemia. At presentation, hemoglobin low at 6.4. She was transfused 2 units pRBC. Hemoglobin has improved following transfusion. Monitor H&H q6h today Transfuse as needed with hemoglobin threshold <7.0 Appreciate GI consultation (2) Angiodysplasia of colon: Code(s): K55.20 - Angiodysplasia of colon without hemorrhage Status: Acute Assessment and Plan: She has history of angiodysplasia of colon, most recently with cauterization of cecal angiodysplasia in 2016. She underwent EGD and colonoscopy today by Dr. Martinez which showed AVM 9 x 10 mm in the cecum with stigmata bleeding which was cauterized. She also had a sessile polyp removed with no stigmata of bleeding. Expect that anemia will improve following cauterization. Appreciate GI consultation Continue to monitor H&H as above She will need repeat colonoscopy in 3-5 years in light of colon polyp. (3) Guaiac positive stools: Code(s): R19.5 - Other fecal abnormalities Status: Acute Assessment and Plan: Secondary to bleeding AVM as noted above. She is now s/p cauterization of AVM. (4) Iron deficiency: Code(s): E61.1 - Iron deficiency Status: Acute Assessment and Plan: She does have a history of chronic iron deficiency anemia and is consistent with oral iron supplementation. This has been acutely exacerbated by GI bleeding as noted above. Iron studies from 07/28 are consistent with iron deficiency anemia. Begin IV iron infusions while inpatient P.o. iron supplement will be continued upon discharge (5) Type 2 diabetes mellitus without complication: Qualifiers: Diabetes mellitus skilled nursing insulin use: without long term care administrator use Qualified Code(s): E11.9 - Type 2 diabetes mellitus without complications Code(s): E11.9 - Type 2 diabetes mellitus without complications Status: Acute Assessment and Plan: Last A1c was 5.4 in March 2020. Blood sugars have been very well controlled during her stay. She is maintained on metformin and Januvia. Continue Accu-Cheks a.c. HS, SSI, and hypoglycemic protocol Metformin is on hold. Continue Januvia. Check updated A1c (6) Essential hypertension: Code(s): I10 - Essential (primary) hypertension Status: Inactive Assessment and Plan: Blood pressure evaluated today and is stable at 131/64. Continue her home losartan and hydrochlorothiazide Monitor blood pressure daily (7) Hypothyroidism: Qualifiers: Hypothyroidism type: acquired Qualified Code(s): E03.9 - Hypothyroidism, unspecified Code(s): E03.9 - Hypothyroidism, unspecified Status: Acute Assessment and Plan: TSH is slightly elevated. T4 is wnl. T3 slightly decreased. Continue levothyroxine at current dose. She will need to follow up with PCP for further dose adjustment and she will benefit from repeat labs as an outpatient. Subjective Date/time seen: 07/29/20 11:25 Interval history: Date of service: 07/29/2020 Jasmyn Moncada is a 74-year-old female with a history COPD, hypertension, iron deficiency anemia, angiodysplasia of colon s/p cauterization 2016, and type 2 diabetes mellitus who is seen in follow-up for anemia. She has just returned from her colonoscopy and EGD. He tolerated the procedure well. Her only complaint at this time is that she feels very fatigued. She states that this has been going on for several weeks. She denies dizziness, lightheadedness, or weakness. She had felt short of breath when she arrived but this has improved. She has known chest pain, palpitations, cough. She denies abdominal pain, nausea, vomiting, fever, or chills. Her appetite has been fair. She has be
[2020-07-29 11:27] LABS: Total Triiodothyronine (T3) 0.81 NG/ML (0.97-1.69)
[2020-07-29] MEDS: IRON SUCROSE COMPLEX 200 MG in SODIUM CHLORIDE 0.9% IV 50 ML 120 MG IVPB (12:08)
[2020-07-29 12:40] LABS: Hematocrit 30.4 % (37.0-47.0); Hemoglobin 9.1 g/dL (12.0-15.0)
[2020-07-29 18:16] LABS: Hematocrit 31.6 % (37.0-47.0); Hemoglobin 9.5 g/dL (12.0-15.0)
[2020-07-29] MEDS: ALBUTEROL SULFATE NEB 2.5 MG/3 ML INH INHALATION (21:14)
[2020-07-29] MEDS: MONTELUKAST SODIUM 10 MG TABLET BY MOUTH (22:24)
[2020-07-29 22:50] LABS: Glucose Point of Care 129 (65-105)
[2020-07-30 01:18] LABS: Hematocrit 29.8 % (37.0-47.0); Hemoglobin 8.9 g/dL (12.0-15.0)
[2020-07-30 04:00] VITALS: BP 130/54; PULSE 78; RESP 18; TEMP 36.6; O2SAT 92
[2020-07-30 06:09] LABS: Basophils Absolute Auto 0.1 K/mm3 (0.0-0.1); Basophils Percent Auto 0.7 % (0.2-1.2); Eosinophils Absolute Auto 0.4 K/mm3 (0-0.3); Eosinophils Percent Auto 4.8 % (0-4.4); Hematocrit 33.4 % (37.0-47.0); Hemoglobin 9.9 g/dL (12.0-15.0); Immature Granulocyte Absolute 0.06 K/mm3 (0.00-0.031); Immature Granulocyte Percent A 0.7 % (0-0.5); Lymphocytes Percent Auto 13.7 % (18.3-44.2); Mean Corpuscular HGB Conc 29.6 g/dl (32-36); Mean Corpuscular Hemoglobin 24.9 pg (26-34); Mean Corpuscular Volume 83.9 fl (80-100); Mean Platelet Volume 9.5 fl (7.4-10.4); Monocytes Absolute Auto 0.6 K/mm3 (0.1-0.6); Monocytes Percent Auto 6.8 % (2.6-8.5); Neutrophils Absolute Auto 6.4 K/mm3 (1.3-6.7); Neutrophils Percent Auto 73.3 % (45.5-73.1); Nucleated Red Blood Cells Absolute Auto 0.1 K/mm3 (0.0-0.012); Nucleated Red Blood Cells Perc 1.5 % (0.0-0.2); Platelet Count Result 546 k/mm3 (150-375); Red Blood Count 3.98 M/mm3 (4.2-5.4); Red Cell Distribution Width 16.7 % (11.5-14.5); White Blood Count 8.8 K/mm3 (4.5-10.0)
[2020-07-30 06:20] LABS: Anion Gap 3 mmol/L (8-16); Blood Urea Nitrogen 7 mg/dL (7-17); Calcium 8.8 mg/dL (8.4-10.2); Carbon Dioxide 32 mmol/L (22-30); Chloride 104 mmol/L (98-107); Estimated Glomerular Filt Rate > 60; Glucose 109 mg/dL (65-105); Potassium 3.6 mmol/L (3.4-5.0); Sodium 139 mmol/L (137-145)
[2020-07-30] MEDS: LEVOTHYROXINE SODIUM 100 MCG TABLET BY MOUTH (06:28)
[2020-07-30 07:59] LABS: Glucose Point of Care 142 (65-105)
[2020-07-30] MEDS: FLUTICASONE PROPIONATE 0.05% NA SPR 16 GM BTL (*BKC) 1 SPRAY NASAL (09:02)
[2020-07-30] MEDS: PARoxetine 10 MG TABLET BY MOUTH (09:02)
[2020-07-30] MEDS: AZELASTINE HCL NASAL 0.1% 137 MCG/SPR 30 ML BTL 1 SPRAY NASAL (09:02)
[2020-07-30] MEDS: PRAVASTATIN SODIUM 20 MG TABLET PO (09:02)
[2020-07-30] MEDS: LOSARTAN POTASSIUM 100 MG TABLET PO (09:02)
[2020-07-30] MEDS: hydroCHLOROthiazide 12.5 MG CAPSULE PO (09:02)
[2020-07-30] MEDS: IRON SUCROSE COMPLEX 200 MG in SODIUM CHLORIDE 0.9% IV 50 ML 120 MG IVPB (09:03)
[2020-07-30 09:50] LABS: Anisocytosis 1+ (NORMAL); Microcytosis 1+ (NORMAL); Ovalocytes 1+ (NORMAL); Platelet Estimate Adequate (Adequate)
[2020-07-30 09:51] LABS: Hypochromasia 1+ (NORMAL); Polychromasia 1+ (NORMAL)
--- NOTE | 2020-07-30 10:31 | WPDANESPN ---
Anes - Prog Note Post-Op Date/Time: 07/30/20 10:31 Cardiovascular status: normal Respiratory status: normal Airway patency: baseline Mental status: baseline Post-Op hydration status: normal Vital Signs: Last Vital Signs Temp 36.6 C 07/30/20 04:00 Pulse 78 07/30/20 04:00 Resp 18 07/30/20 04:00 BP 130/54 L 07/30/20 04:00 Pulse Ox 92 07/30/20 04:00 Pain Score (VAS): 07/17 I/O: Intake & Output 07/29/20 07/30/20 07/30/20 23:59 07:59 15:59 Intake Total 540 400 560 Output Total 950 2400 Balance -410 -2000 560 Laboratory Tests 07/30/20 05:29 07/30/20 05:29 07/28/20 07/29/20 07/29/20 12:23 05:02 12:15 WBC RBC Hgb 9.1 L Hct 30.4 L MCV MCH MCHC RDW Plt Count MPV Immature Gran % (Auto) Neut % (Auto) Lymph % (Auto) [place] % (Auto) Eos % (Auto) Baso % (Auto) Lymph # (Auto) [place] # (Auto) Eos # (Auto) Baso # (Auto) Abs Immat Gran (auto) Absolute Neuts (auto) Absolute Nucleated RBC Nucleated RBC % Platelet Estimate Polychromasia Hypochromasia Anisocytosis Microcytosis Ovalocytes Sodium Potassium Chloride Carbon Dioxide Anion Gap BUN Creatinine Estim Creat Clear Calc Estimated GFR Glucose POC Capillary Glucose Calcium Total T3 0.81 L Crossmatch See Detail 07/29/20 07/29/20 07/30/20 17:53 22:28 01:12 WBC RBC Hgb 9.5 L 8.9 L Hct 31.6 L 29.8 L MCV MCH MCHC RDW Plt Count MPV Immature Gran % (Auto) Neut % (Auto) Lymph % (Auto) [place] % (Auto) Eos % (Auto) Baso % (Auto) Lymph # (Auto) [place] # (Auto) Eos # (Auto) Baso # (Auto) Abs Immat Gran (auto) Absolute Neuts (auto) Absolute Nucleated RBC Nucleated RBC % Platelet Estimate Polychromasia Hypochromasia Anisocytosis Microcytosis Ovalocytes Sodium Potassium Chloride Carbon Dioxide Anion Gap BUN Creatinine Estim Creat Clear Calc Estimated GFR Glucose POC Capillary Glucose 129 H Calcium Total T3 Crossmatch 07/30/20 07/30/20 07/30/20 05:29 05:29 07:56 WBC 8.8 RBC 3.98 L Hgb 9.9 L Hct 33.4 L MCV 83.9 MCH 24.9 L MCHC 29.6 L RDW 16.7 H Plt Count 546 H MPV 9.5 Immature Gran % (Auto) 0.7 H Neut % (Auto) 73.3 H Lymph % (Auto) 13.7 L [place] % (Auto) 6.8 Eos % (Auto) 4.8 H Baso % (Auto) 0.7 Lymph # (Auto) 1.20 [place] # (Auto) 0.6 Eos # (Auto) 0.4 H Baso # (Auto) 0.1 Abs Immat Gran (auto) 0.06 H Absolute Neuts (auto) 6.4 Absolute Nucleated RBC 0.1 H Nucleated RBC % 1.5 H Platelet Estimate Adequate Polychromasia 1+ Hypochromasia 1+ Anisocytosis 1+ Microcytosis 1+ Ovalocytes 1+ Sodium 139 Potassium 3.6 Chloride 104 Carbon Dioxide 32 H Anion Gap 3 L BUN 7 Creatinine 0.60 L Estim Creat Clear Calc Not Reportable Estimated GFR > 60 Glucose 109 H POC Capillary Glucose 142 H Calcium 8.8 Total T3 Crossmatch Post-procedural complaints: none Patient Feedback: Patient satisfied with anesthetic care.
--- NOTE | 2020-07-30 11:00 | WPDGIPROGNO ---
Progress Note: A&P Assessment and Plan (1) Acute on chronic blood loss anemia: Code(s): D62 - Acute posthemorrhagic anemia Status: Acute Assessment and Plan: hb stable after blood transfusion egd and colonoscopy by Dr Martinez with AVM's, treated with apc hold aspirin for another 5 days and repeat cbc as outpatient if anemic again, then follow up with Dr Martinez ok to go home (2) Guaiac positive stools: Code(s): R19.5 - Other fecal abnormalities Status: Acute (3) Profound anemia: Code(s): D64.9 - Anemia, unspecified Status: Acute Assessment and Plan: stable now (4) Angiodysplasia of colon: Code(s): K55.20 - Angiodysplasia of colon without hemorrhage Status: Acute (5) History of colon polyps: Code(s): Z86.010 - Personal history of colonic polyps Status: Acute Assessment and Plan: colonoscopy in 3-5 years again Subjective Date/time seen: 07/30/20 11:00 Interval history: she is feeling much better after blood transfusion, no pain, good appetite and ready to go home Dr Martinez found AVM in cecum and duodenum, treated with APC Review of Systems Review of Systems: All systems reviewed & are unremarkable except as noted in HPI and below Exam Const: General: comfortable and no acute distress HENMT: General nose exam: Normal nares present Eyes: General: appearance normal, both eyes and all related structures Neck: Neck: no JVD Resp: Auscultation: clear to auscultation bilaterally Cardio: Rate: regular rate Rhythm: regular rhythm GI: Inspection: non-distended GI Palp: Yes Soft to palpation Skin: General skin exam: normal color Neuro: General: gait normal Speech: normal speech Extrem: General: normal to inspection Psych: Mental Status: mental status grossly normal Objective Data Vital Signs Vital Signs: Vital Signs - 24 hr 07/29/20 14:00 07/29/20 20:00 07/29/20 21:16 Temperature 97.7 F 98.4 F Pulse Rate 76 78 79 Respiratory Rate 16 18 18 Blood Pressure 129/60 129/66 Pulse Oximetry 98 93 94 07/29/20 21:21 07/30/20 04:00 Temperature 97.9 F Pulse Rate 71 78 Respiratory Rate 18 18 Blood Pressure 130/54 L Pulse Oximetry 92 Intake/Output Intake/Output: Intake & Output 07/27/20 07/28/20 07/29/20 07/30/20 23:59 23:59 23:59 23:59 Intake Total 1020 2260 1020 Output Total 1450 2400 Balance 1020 810 -1380 Meds/Results Medications: Active Medications Generic Name Dose Route Start Last Admin Trade Name Freq PRN Reason Stop Dose Admin Acetaminophen 650 mg 07/28/20 13:20 Acetaminophen 325 Mg Tablet PO Q4H PRN Mild Pain (1-3) or Fever Albuterol 1 puff 07/28/20 16:46 Albuterol Sulfate (*Sp) Aerosol 1 Puff INHALATION Q4-6H PRN Shortness Of Breath Albuterol 2.5 mg 07/28/20 21:00 07/29/20 21:14 Albuterol Sulfate Neb 2.5 Mg/3 Ml Inh INHALATION 2.5 mg HS CAITLIN Administration Azelastine HCl 1 spray 07/28/20 21:00 07/30/20 09:02 Azelastine Hcl Nasal 0.1% 137 Mcg/Spr 30 Ml Btl NASAL 1 spray Q12HR CAITLIN Administration Dextrose 12.5 gm 07/28/20 16:35 Dextrose 50% 25 Gm/50 Ml Syringe IV PUSH PRN PRN Hypoglycemia Protocol Fluticasone Propionate 1 spray 07/29/20 09:00 07/30/20 09:02 Fluticasone Propionate 0.05% Na Spr 16 Gm Btl (*Bkc) NASAL 1 spray DAILY CAITLIN Administration Glucagon 1 mg 07/28/20 16:35 Glucagon For Inj 1 Mg Vial IM PRN PRN Hypoglycemia Protocol Glucose 15 gm 07/28/20 16:35 Glucose Oral Gel 15 Gm Of Glucse In 37.5 Gm Tube PO PRN PRN Hypoglycemia Protocol Hydrochlorothiazide 12.5 mg 07/29/20 09:00 07/30/20 09:02 Hydrochlorothiazide 12.5 Mg Capsule PO 12.5 mg QAM CAITLIN Administration Dextrose 1,000 mls @ 100 mls/hr 07/28/20 16:35 Dextrose 5% 1,000 Ml IVPB PRN PRN Hypoglycemia Protocol Insulin Aspart 2 - 5 units 07/28/20 17:00
[2020-07-30 11:18] LABS: Glucose Point of Care 106 (65-105)
--- NOTE | 2020-07-30 12:24 | PM.DS ---
DS: Admitting Diagnosis Admitting Diagnosis Admitting Diagnosis: profound anemia DS: Discharge Diagnosis Discharge Diagnosis (1) Profound anemia: Code(s): D64.9 - Anemia, unspecified Status: Acute Assessment and Plan: Acute on chronic secondary to chronic iron deficiency and acute bleeding AVM. At presentation, hemoglobin low at 6.4. She was transfused 2 units pRBC on 07/28/20. H&H stabilized following transfusion. She will continue PO iron supplementation and repeat H&H in 4 days as an outpatient. she had no signs or symptoms of ongoing bleeding and her vital signs remained stable (2) Angiodysplasia of colon: Code(s): K55.20 - Angiodysplasia of colon without hemorrhage Status: Acute Assessment and Plan: She has history of angiodysplasia of colon, most recently with cauterization of cecal angiodysplasia in 2016. She underwent EGD and colonoscopy on 07/[address] Martinez which showed AVM 9 x 10 mm in the cecum with stigmata of bleeding which was cauterized. She also had a sessile polyp removed with no stigmata of bleeding. This explains her profound anemia. She will follow-up with Dr. Martinez as needed if she has any issues in the future. Additionally, she will need repeat colonoscopy in 3-5 years in light of colon polyp. She was provided with Dr. Martinez's office information. (3) Guaiac positive stools: Code(s): R19.5 - Other fecal abnormalities Status: Acute Assessment and Plan: Secondary to bleeding AVM as noted above. She is now s/p cauterization of AVM. discussed with gastroenterology who recommended holding aspirin for 5 days upon discharge. She can resume aspirin on 08/05/2020. She is aware. (4) Iron deficiency: Code(s): E61.1 - Iron deficiency Status: Acute Assessment and Plan: She does have a history of chronic iron deficiency anemia and is consistent with taking her oral iron supplementation. This has been acutely exacerbated by GI bleeding as noted above. Iron studies from 07/28 are consistent with iron deficiency anemia. she received 200 mg IV Venofer x2 and will continue her p.o. iron supplementation as an outpatient. 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 Blood sugars were very well controlled during her stay. She is maintained on metformin and Januvia which she will continue as an outpatient. (6) Essential hypertension: Code(s): I10 - Essential (primary) hypertension Status: Inactive Assessment and Plan: Blood pressure evaluated and were at target. Continue her home losartan and hydrochlorothiazide (7) Hypothyroidism: Qualifiers: Hypothyroidism type: acquired Qualified Code(s): E03.9 - Hypothyroidism, unspecified Code(s): E03.9 - Hypothyroidism, unspecified Status: Acute Assessment and Plan: TSH slightly elevated. T4 is wnl. T3 slightly decreased. Continue levothyroxine at home dose 100 mcg. She will need to follow up with PCP for further dose adjustment and she will benefit from repeat labs as an outpatient. (8) Thrombocytosis: Code(s): D47.3 - Essential (hemorrhagic) thrombocythemia Status: Acute Assessment and Plan: review of prior labs shows that platelets have been elevated for approximately 2 years. She reports that she has never been informed of this in the past, and I do not believe that any additional workup has been pursued regarding this. She will need to follow-up with her primary care provider. May benefit from referral to hematology given duration. Repeat CBCd in 1 week. DS: Summary Hospital Course
== END 2020-07-30 13:00 | disposition home or self-care (01) ==
LOC: ANHED 13:19 → ANH2MED 13:54
PROVIDERS: Internal Medicine Gastroenterology; Physician Assistant; Admitting Provider Family Medicine; Emergency Provider Emergency Medicine; PCP Internal Medicine; Visit Provider Internal Medicine
PROC: 0DJ08ZZ Inspection of Upper Intestinal Tract, Via Natural or Artificial Opening Endoscopic (ICD-10-PCS; CPT 43235; principal; 2020-07-29 09:30)
DX: D12.5 Benign neoplasm of sigmoid colon (principal); D62 Acute posthemorrhagic anemia; D50.9 Iron deficiency anemia, unspecified; K55.20 Angiodysplasia of colon without hemorrhage; K31.819 Angiodysplasia of stomach and duodenum without bleeding; K64.8 Other hemorrhoids; R19.5 Other fecal abnormalities; D47.3 Essential (hemorrhagic) thrombocythemia; E11.9 Type 2 diabetes mellitus without complications; E03.9 Hypothyroidism, unspecified; E78.5 Hyperlipidemia, unspecified; I10 Essential (primary) hypertension; J44.9 Chronic obstructive pulmonary disease, unspecified; R06.02 Shortness of breath; Z79.84 Long term (current) use of oral hypoglycemic drugs; Z86.010 Personal history of colon polyps; Z87.891 Personal history of nicotine dependence
CPT/HCPCS: 45385; 43235; 36415; 36430; 80048; 80053; 82607; 82728; 82746; 83540; 83550; 83735; 84439; 84443; 84480; 85014; 85018; 85025; 85027; 85046; 85055; 85610; 86850; 86900; 86901; 86920; 88305; 94640; 96361; 96365; 96375; 99285; A9270; C9113; G0378; J1756; J2704; J7030; J7050; J7120; P9016

== ENCOUNTER 2020-08-05 08:55 | Outpatient (CLI) | payer MEDICARE, SELFPAY ==
[2020-08-05 09:36] LABS: Basophils Absolute Auto 0.1 K/mm3 (0.0-0.1); Basophils Percent Auto 0.8 % (0.2-1.2); Eosinophils Absolute Auto 0.3 K/mm3 (0-0.3); Eosinophils Percent Auto 4.8 % (0-4.4); Hematocrit 36.3 % (37.0-47.0); Hemoglobin 10.6 g/dL (12.0-15.0); Immature Granulocyte Absolute 0.03 K/mm3 (0.00-0.031); Immature Granulocyte Percent A 0.5 % (0-0.5); Lymphocytes Absolute Auto 0.84 K/mm3 (0.9-3.2); Lymphocytes Percent Auto 13.5 % (18.3-44.2); Mean Corpuscular HGB Conc 29.2 g/dl (32-36); Mean Corpuscular Volume 89.2 fl (80-100); Mean Platelet Volume 9.4 fl (7.4-10.4); Monocytes Absolute Auto 0.5 K/mm3 (0.1-0.6); Monocytes Percent Auto 7.9 % (2.6-8.5); Neutrophils Absolute Auto 4.5 K/mm3 (1.3-6.7); Neutrophils Percent Auto 72.5 % (45.5-73.1); Platelet Count Result 453 k/mm3 (150-375); Red Blood Count 4.07 M/mm3 (4.2-5.4); Red Cell Distribution Width 18.7 % (11.5-14.5); White Blood Count 6.2 K/mm3 (4.5-10.0)
[2020-08-05 10:38] LABS: Anisocytosis 1+ (NORMAL); Hypochromasia 1+ (NORMAL); Platelet Estimate Adequate (Adequate)
== END 2020-08-05 08:56 | disposition home or self-care (01) ==
PROVIDERS: Family Provider Internal Medicine; PCP Internal Medicine; Visit Provider Physician Assistant
DX: D47.3 Essential (hemorrhagic) thrombocythemia (principal); D64.9 Anemia, unspecified
CPT/HCPCS: 36415; 85025

== ENCOUNTER 2020-08-15 07:43 | Outpatient (CLI) | payer MEDICARE, SELFPAY ==
--- NOTE | ~2020-08-15 | NM_ITS ---
EXAMINATION: NM fabio stress w perfusion DATE: 08/15/2020 10:24 INDICATION: Other chest pain. TECHNIQUE: Rest images were obtained following intravenous administration of 10 mCi Tc99m tetrofosmin (Myoview). The patient was infused intravenously with Lexiscan (regadenoson). Then, 31.77 mCi Tc99m tetrofosmin (Myoview) was administered intravenously, and stress images were obtained. Data was recon structed into short axis and horizontal and vertical long axis SPECT images. Gated SPECT images were also obtained. COMPARISON: Myocardial perfusion imaging 05/25/2013 FINDINGS: There is no definite reversible or fixed perfusion abnormality to suggest ischemia or infar ction. There is no segmental wall motion abnormality. Left ventricular ejection fraction measures 6 7%. IMPRESSION: 1. No definite ischemia or infarct. 2. Normal left ventricular ejection fraction measuring 67%. Reviewed, dictated and finalized at location A. [employer]
--- NOTE | 2020-08-15 08:15 | EST_ITS ---
Patient Info Name: Jasmyn Moncada Age: 74 years : 1945 Gender: Female Ht: 59 in Wt: 135 lbs BSA: 1.62 m2 Exam Date: 08/15/2020 8:55 AM Exam Location: [facility] Stress Patient Status: Outpatient Admit Date: 08/15/2020 Staff Ordering Physician: Cecil Hernandez MD Attending Provider: Cecil Hernandez MD Exercise Technologist: Josefa Hickman RDCS Exercise Physician: Cayetano Jung DO Exam Type: CA stress fabio w NM Study Info A regadenoson stress test was performed. Summary 1. 1. Negative lexiscan stress test for ischemic ST changes by ECG criteria. 2. 2. Stable hemodynamics throughout the test. 3. 3. Nuclear scan to follow and will be reported separately. Please correlate with it. 4. 4. Patient informed of the above results. Protocol: Lexiscan Stress ECG Details Stage: REST Duration (min): 6 min : 41 sec HR (bpm): 75 SBP (mmHg): 139 DBP (mmHg): 81 Stage: REST Duration (min): 18 min : 41 sec HR (bpm): 77 SBP (mmHg): 139 DBP (mmHg): 81 Stage: STAGE 1 Duration (min): 1 min : 0 sec HR (bpm): 98 SBP (mmHg): 149 DBP (mmHg): 100 Stage: RECOVERY Duration (min): 1 min : 0 sec HR (bpm): 103 SBP (mmHg): 132 DBP (mmHg): 58 Stage: RECOVERY Duration (min): 2 min : 0 sec HR (bpm): 99 SBP (mmHg): 132 DBP (mmHg): 58 Stage: RECOVERY Duration (min): 3 min : 0 sec HR (bpm): 98 SBP (mmHg): 129 DBP (mmHg): 57 Stage: RECOVERY Duration (min): 4 min : 0 sec HR (bpm): 96 SBP (mmHg): 129 DBP (mmHg): 57 Stage: RECOVERY Duration (min): 5 min : 0 sec HR (bpm): 97 SBP (mmHg): 128 DBP (mmHg): 60 Stage: RECOVERY Duration (min): 6 min : 0 sec HR (bpm): 94 SBP (mmHg): 128 DBP (mmHg): 60 Stage: RECOVERY Duration (min): 6 min : 51 sec HR (bpm): 94 SBP (mmHg): 132 DBP (mmHg): 68 Rest HR: 77 bpm Peak HR: 105 bpm Rest Sys BP: 139 mmHg Peak Sys BP: 149 mmHg Max Pred HR: 147 bpm % Max Pred HR: 71 % Target HR: 125 bpm Max RPP: 15,645 bpm*mmHg Termination Reason: Completed protocol Cardiac Symptoms: Shortness of breath Total Time: 1 min : 0 sec Rest Matthews BP: 81 mmHg Peak Matthews BP: 100 mmHg Total Dose: 0.4 mg Resting ECG Sinus rhythm. Stress ECG No ST changes. Arrhythmias None. Report Signatures
== END 2020-08-15 07:44 | disposition home or self-care (01) ==
PROVIDERS: PCP Internal Medicine; Visit Provider Internal Medicine
DX: R07.89 Other chest pain (principal); D62 Acute posthemorrhagic anemia
CPT/HCPCS: 78452; 93017; A9502; J2785

== ENCOUNTER 2020-09-23 10:42 | Outpatient (CLI) | payer MEDICARE, SELFPAY ==
[2020-09-23 11:46] LABS: Add Urine Microscopic? YES; Appearance Urine Clear (Clear); Bacteria Urine Trace /hpf; Bilirubin Urine Negative (Negative); Blood Urine 2+ (Negative); Color Urine Yellow (Yellow); Glucose Urine UA Negative (Negative); Ketones Urine Negative (Negative); Leukocyte Esterase Ur 2+ LEU/UL (Negative); Nitrate Urine Negative (Negative); Protein Urine Negative (Negative); Specific Grav Ur 1.009 (1.001-1.035); Squamous Epithelial Cell Urine Rare /hpf (Few); Urobilinogen Urine Negative mg/dL (<2.0); WBC Urine 51-75 /hpf
== END 2020-09-23 10:43 | disposition home or self-care (01) ==
PROVIDERS: PCP Internal Medicine; Visit Provider Internal Medicine
DX: N39.0 Urinary tract infection, site not specified (principal)
CPT/HCPCS: 81001; 87086; 87088

== ENCOUNTER 2020-09-28 11:21 | Outpatient (CLI) | payer MEDICARE, SELFPAY ==
[2020-09-28 11:49] LABS: Basophils Absolute Auto 0.1 K/mm3 (0.0-0.1); Basophils Percent Auto 0.7 % (0.2-1.2); Eosinophils Absolute Auto 0.3 K/mm3 (0-0.3); Eosinophils Percent Auto 3.6 % (0-4.4); Hematocrit 38.2 % (37.0-47.0); Hemoglobin 12.2 g/dL (12.0-15.0); Immature Granulocyte Absolute 0.04 K/mm3 (0.00-0.031); Immature Granulocyte Percent A 0.6 % (0-0.5); Lymphocytes Absolute Auto 1.48 K/mm3 (0.9-3.2); Lymphocytes Percent Auto 20.4 % (18.3-44.2); Mean Corpuscular HGB Conc 31.9 g/dl (32-36); Mean Corpuscular Hemoglobin 27.8 pg (26-34); Mean Platelet Volume 9.3 fl (7.4-10.4); Monocytes Absolute Auto 0.7 K/mm3 (0.1-0.6); Monocytes Percent Auto 10.2 % (2.6-8.5); Neutrophils Absolute Auto 4.7 K/mm3 (1.3-6.7); Neutrophils Percent Auto 64.5 % (45.5-73.1); Platelet Count Result 411 k/mm3 (150-375); Red Blood Count 4.39 M/mm3 (4.2-5.4); Red Cell Distribution Width 16.7 % (11.5-14.5); White Blood Count 7.3 K/mm3 (4.5-10.0)
[2020-09-28 13:12] LABS: Folic Acid > 20.0 ng/mL (2.76->20)
[2020-09-28 13:28] LABS: Iron 51 ug/dL (37-170)
[2020-09-28 13:38] LABS: Percent Iron Saturation 13 % (20-50)
[2020-09-28 14:05] LABS: Ferritin 9.26 ng/mL (11.1-264)
== END 2020-09-28 11:22 | disposition home or self-care (01) ==
PROVIDERS: PCP Internal Medicine; Visit Provider Internal Medicine
DX: D64.9 Anemia, unspecified (principal); E11.9 Type 2 diabetes mellitus without complications; E53.8 Deficiency of other specified B group vitamins; E03.9 Hypothyroidism, unspecified; E61.1 Iron deficiency
CPT/HCPCS: 36415; 82607; 82728; 82746; 83540; 83550; 84443; 85025

== ENCOUNTER 2021-01-05 09:16 | Outpatient (CLI) | payer MEDICARE, SELFPAY ==
[2021-01-05 09:49] LABS: Hematocrit 40.5 % (37.0-47.0); Hemoglobin 13.3 g/dL (12.0-15.0); Mean Corpuscular HGB Conc 32.8 g/dl (32-36); Mean Corpuscular Hemoglobin 28.1 pg (26-34); Mean Corpuscular Volume 85.4 fl (80-100); Mean Platelet Volume 9.3 fl (7.4-10.4); Platelet Count Result 387 k/mm3 (150-375); Red Blood Count 4.74 M/mm3 (4.2-5.4); Red Cell Distribution Width 14.9 % (11.5-14.5)
[2021-01-05 10:08] LABS: Hemoglobin A1C 6.1 % (<5.7)
[2021-01-05 10:44] LABS: Creatinine Urine 34.1 mg/dL
[2021-01-05 10:47] LABS: Alanine Aminotransferase 20 U/L (4-35); Albumin Level 4.5 g/dL (3.5-5.1); Alkaline Phosphatase 56 U/L (38-126); Anion Gap 12 mmol/L (8-16); Aspartate Amino Transferase 27 U/L (14-36); Bilirubin,Total 0.5 mg/dL (0.2-1.3); Blood Urea Nitrogen 7 mg/dL (7-17); Calcium 9.5 mg/dL (8.4-10.2); Carbon Dioxide 26 mmol/L (22-30); Chloride 101 mmol/L (98-107); Cholesterol 164 mg/dL (0-200); Estimated Glomerular Filt Rate > 60; Glucose 87 mg/dL (65-105); HDL Direct 54 mg/dL; Potassium 3.7 mmol/L (3.4-5.0); Sodium 139 mmol/L (137-145); Triglycerides 125 mg/dL (<150)
[2021-01-05 10:55] LABS: MALB Creatinine Ratio 17.6 mg/g (0-30); Microalbumin Urine Random < 6.0 mg/L (0-16.7)
[2021-01-05 10:58] LABS: LDL Cholesterol Direct 81 mg/dL
== END 2021-01-05 09:17 | disposition home or self-care (01) ==
PROVIDERS: PCP Internal Medicine; Visit Provider Internal Medicine
DX: E11.9 Type 2 diabetes mellitus without complications (principal); E55.9 Vitamin D deficiency, unspecified; I10 Essential (primary) hypertension; E78.2 Mixed hyperlipidemia
CPT/HCPCS: 36415; 80053; 80061; 82043; 83036; 85027

== ENCOUNTER 2021-08-21 10:26 | Outpatient (CLI) | payer MEDICARE, SELFPAY ==
[2021-08-21 11:09] LABS: Basophils Percent Auto 0.4 % (0.2-1.2); Eosinophils Absolute Auto 0.3 K/mm3 (0-0.3); Eosinophils Percent Auto 3.3 % (0-4.4); Hematocrit 39.1 % (37.0-47.0); Hemoglobin 12.6 g/dL (12.0-15.0); Immature Granulocyte Absolute 0.04 K/mm3 (0.00-0.031); Immature Granulocyte Percent A 0.4 % (0-0.5); Lymphocytes Absolute Auto 1.07 K/mm3 (0.9-3.2); Lymphocytes Percent Auto 11.9 % (18.3-44.2); Mean Corpuscular HGB Conc 32.2 g/dl (32-36); Mean Corpuscular Hemoglobin 28.5 pg (26-34); Mean Corpuscular Volume 88.5 fl (80-100); Mean Platelet Volume 9.3 fl (7.4-10.4); Monocytes Absolute Auto 0.7 K/mm3 (0.1-0.6); Monocytes Percent Auto 7.6 % (2.6-8.5); Neutrophils Absolute Auto 6.9 K/mm3 (1.3-6.7); Neutrophils Percent Auto 76.4 % (45.5-73.1); Platelet Count Result 395 k/mm3 (150-375); Red Blood Count 4.42 M/mm3 (4.2-5.4); Red Cell Distribution Width 14.6 % (11.5-14.5)
[2021-08-21 11:18] LABS: Creatinine Urine 41.8 mg/dL
[2021-08-21 11:20] LABS: Alanine Aminotransferase 23 U/L (4-35); Albumin Level 4.4 g/dL (3.5-5.1); Alkaline Phosphatase 55 U/L (38-126); Anion Gap 11 mmol/L (8-16); Aspartate Amino Transferase 27 U/L (14-36); Bilirubin,Total 0.5 mg/dL (0.2-1.3); Blood Urea Nitrogen 8 mg/dL (7-17); Calcium 9.2 mg/dL (8.4-10.2); Carbon Dioxide 26 mmol/L (22-30); Chloride 99 mmol/L (98-107); Estimated Glomerular Filt Rate > 60; Glucose 165 mg/dL (65-110); Potassium 3.7 mmol/L (3.4-5.0); Sodium 136 mmol/L (137-145)
[2021-08-21 11:33] LABS: Iron 53 ug/dL (37-170)
[2021-08-21 11:42] LABS: Percent Iron Saturation 14 % (20-50)
[2021-08-21 11:47] LABS: MALB Creatinine Ratio < 14.4 mg/g (0-30); Microalbumin Urine Random < 6.0 mg/L (0-16.7)
== END 2021-08-21 10:27 | disposition home or self-care (01) ==
LOC: ANHLAB 10:31
PROVIDERS: PCP Internal Medicine; Visit Provider Internal Medicine
DX: J45.909 Unspecified asthma, uncomplicated (principal); I10 Essential (primary) hypertension; E11.9 Type 2 diabetes mellitus without complications; E78.2 Mixed hyperlipidemia; E55.9 Vitamin D deficiency, unspecified; F32.9 Major depressive disorder, single episode, unspecified; E03.9 Hypothyroidism, unspecified
CPT/HCPCS: 36415; 80053; 82043; 82306; 82728; 83036; 83540; 83550; 84443; 85025

== ENCOUNTER 2022-01-24 11:42 | Outpatient (CLI) | payer MEDICARE, SELFPAY ==
[2022-01-24 12:27] LABS: Add Urine Microscopic? YES; Appearance Urine Slightly Cloudy (Clear); Bilirubin Urine Negative (Negative); Blood Urine Negative (Negative); Color Urine Orange (Yellow); Glucose Urine UA Negative (Negative); Ketones Urine Negative (Negative); Leukocyte Esterase Ur Trace LEU/UL (Negative); Nitrate Urine Positive (Negative); Protein Urine Negative (Negative); Specific Grav Ur 1.015 (1.001-1.035); Urobilinogen Urine 0.2 mg/dL (<2.0)
[2022-01-24 12:39] LABS: Mucus Urine Rare /lpf; RBC Urine 0-2 /hpf (0-2); Squamous Epithelial Cell Urine Rare /hpf (Few); WBC Urine 31-50 /hpf
== END 2022-01-24 11:43 | disposition home or self-care (01) ==
LOC: ANHLAB 11:43
PROVIDERS: PCP Internal Medicine; Visit Provider Internal Medicine
DX: N39.0 Urinary tract infection, site not specified (principal)
CPT/HCPCS: 81001; 87077; 87086; 87186

== ENCOUNTER 2022-04-17 10:29 | Outpatient (CLI) | payer MEDICARE, SELFPAY ==
[2022-04-17 10:56] LABS: Basophils Percent Auto 0.4 % (0.2-1.2); Eosinophils Absolute Auto 0.2 K/mm3 (0-0.3); Eosinophils Percent Auto 2.6 % (0-4.4); Hematocrit 42.5 % (37.0-47.0); Hemoglobin 14.4 g/dL (12.0-15.0); Immature Granulocyte Absolute 0.07 K/mm3 (0.00-0.031); Immature Granulocyte Percent A 0.8 % (0-0.5); Lymphocytes Absolute Auto 1.48 K/mm3 (0.9-3.2); Mean Corpuscular HGB Conc 33.9 g/dl (32-36); Mean Corpuscular Hemoglobin 30.1 pg (26-34); Mean Corpuscular Volume 88.9 fl (80-100); Mean Platelet Volume 9.1 fl (7.4-10.4); Monocytes Absolute Auto 0.8 K/mm3 (0.1-0.6); Monocytes Percent Auto 8.3 % (2.6-8.5); Neutrophils Absolute Auto 6.7 K/mm3 (1.3-6.7); Neutrophils Percent Auto 71.9 % (45.5-73.1); Platelet Count Result 386 k/mm3 (150-375); Red Blood Count 4.78 M/mm3 (4.2-5.4); Red Cell Distribution Width 13.2 % (11.5-14.5); White Blood Count 9.3 K/mm3 (4.5-10.0)
[2022-04-17 11:12] LABS: Alanine Aminotransferase 25 U/L (6-35); Albumin Level 4.7 g/dL (3.5-5.1); Alkaline Phosphatase 58 U/L (38-126); Anion Gap 12 mmol/L (8-16); Aspartate Amino Transferase 26 U/L (14-36); Bilirubin,Total 0.4 mg/dL (0.2-1.3); Blood Urea Nitrogen 11 mg/dL (7-17); Calcium 9.1 mg/dL (8.4-10.2); Carbon Dioxide 23 mmol/L (22-30); Chloride 101 mmol/L (98-107); Estimated Glomerular Filt Rate > 60; Glucose 138 mg/dL (65-110); Potassium 4.1 mmol/L (3.4-5.0); Sodium 136 mmol/L (137-145)
[2022-04-17 11:42] LABS: Hemoglobin A1C 6.4 % (<5.7)
[2022-04-17 11:54] LABS: Vitamin D 25 Hydroxy 73.3 ng/mL
[2022-04-17 12:13] LABS: Vitamin B12 > 1000.0 pg/mL (239-931)
== END 2022-04-17 10:30 | disposition home or self-care (01) ==
PROVIDERS: PCP Internal Medicine; Visit Provider Internal Medicine
DX: J45.909 Unspecified asthma, uncomplicated (principal); E53.8 Deficiency of other specified B group vitamins; E55.9 Vitamin D deficiency, unspecified; E03.9 Hypothyroidism, unspecified; E11.9 Type 2 diabetes mellitus without complications; I10 Essential (primary) hypertension
CPT/HCPCS: 36415; 80053; 82306; 82607; 83036; 84443; 85025

== ENCOUNTER 2022-09-03 09:57 | Outpatient (CLI) | payer MEDICARE, SELFPAY ==
--- NOTE | 2022-09-10 14:29 | WPDPFTINT ---
PFT Procedure Performed PFT Procedure Performed Spirometry with Pre/Post Bronchodilator Plethysmography (Lung Vol) Diffusing Cap (DLCO) Flow Vol Loop PFT Interpretation DOS: 09/03/2022 REQUESTING: Dolly Abdullahi PA-C REASON FOR TESTING: COPD PULMONARY FUNCTION TESTS Results are reliable and reproducible. Spirometry: pre bronchodilator FEV1 is 1.49 L, 87% predicted, normal. Pre bronchodilator FVC is 1.91 L, 86% predicted, normal. FEV1 / FVC ratio 78%, normal. After bronchodilator there was 1% increase in FEV1 and 3% decrease in FVC, insignificant changes. Lung volumes: Total lung capacity 3.19 L, 74%, mild restrictive pattern. Residual volume 1.29 L, 62%, mildly reduced. FEV1/FVC ratio 40%, normal. Raw 3.06 cmH2O/L/sec, 167% predicted, increased. Diffusion: DLCO 13.8, 78%, within the normal range. DLCO/VA is 4.45, 101%, normal. Flow volume loop: Unremarkable. IMPRESSION: Normal spirometry without response to bronchodilator, mild restriction, normal diffusion. Compared to a prior study 11/22/2017, spirometry was normal, lung volumes were normal, total lung capacity was 3.93 L, 103% predicted indicating that the restrictive process is new on the current. Air trapping was present. Diffusion was normal. Mary Correia MD
--- NOTE | 2022-09-11 17:52 | WPDSIXMINUTE ---
Six Minute Walk Procedure Procedure Performed Pulmonary Stress Test (6 min walk) Six Minute Walk Six Minute Walk: This is a 6 minute walk test. The test was performed and interpreted in accordance with the 2014 ERS/ATS task force guidelines. Findings: The patient's resting room air oxygen saturation measured by pulse oximetry was 94% and heart rate was 88 bpm. Patient ambulated for 244 meters and oxygen saturation remained 93 to 95%. Heart rate at the end of the study was 97 bpm. The patient did not qualify for supplemental oxygen at rest or with ambulation. There are no prior studies for comparison.
== END 2022-09-03 09:58 | disposition home or self-care (01) ==
LOC: ANHPFT 10:00
PROVIDERS: PCP Nurse Practitioner; Visit Provider Physician Assistant
DX: J44.9 Chronic obstructive pulmonary disease, unspecified (principal)
CPT/HCPCS: 94060; 94618; 94726; 94729

== ENCOUNTER 2022-10-19 11:02 | Outpatient (CLI) | payer MEDICARE, SELFPAY ==
[2022-10-19 11:58] LABS: Alanine Aminotransferase 25 U/L (6-35); Albumin Level 4.4 g/dL (3.5-5.1); Alkaline Phosphatase 58 U/L (38-126); Anion Gap 12 mmol/L (8-16); Aspartate Amino Transferase 30 U/L (14-36); Bilirubin,Total 0.6 mg/dL (0.2-1.3); Blood Urea Nitrogen 9 mg/dL (7-17); Carbon Dioxide 25 mmol/L (22-30); Chloride 102 mmol/L (98-107); Cholesterol 148 mg/dL (0-200); Estimated Glomerular Filt Rate > 60; Glucose 101 mg/dL (65-110); HDL Direct 47 mg/dL; Potassium 3.6 mmol/L (3.4-5.0); Sodium 139 mmol/L (137-145); Triglycerides 215 mg/dL (<150)
[2022-10-19 12:04] LABS: Hemoglobin A1C 6.1 % (<5.7)
[2022-10-19 12:07] LABS: Iron 58 ug/dL (37-170)
[2022-10-19 12:09] LABS: LDL Cholesterol Direct 73 mg/dL
[2022-10-19 12:16] LABS: Percent Iron Saturation 15 % (20-50)
[2022-10-19 12:30] LABS: MALB Creatinine Ratio < 9.5 mg/g (0-30); Microalbumin Urine Random < 6.0 mg/L (0-16.7)
[2022-10-19 13:34] LABS: Vitamin B12 > 1000.0 pg/mL (239-931)
== END 2022-10-19 11:03 | disposition home or self-care (01) ==
PROVIDERS: PCP Nurse Practitioner; Visit Provider Nurse Practitioner
DX: E11.9 Type 2 diabetes mellitus without complications (principal); I10 Essential (primary) hypertension; E61.1 Iron deficiency; E78.5 Hyperlipidemia, unspecified; E03.9 Hypothyroidism, unspecified; E53.8 Deficiency of other specified B group vitamins
CPT/HCPCS: 36415; 80053; 80061; 82043; 82607; 83036; 83540; 83550; 84443

== ENCOUNTER 2023-02-26 12:59 | Outpatient (CLI) | payer MEDICARE, SELFPAY ==
--- NOTE | ~2023-02-26 | CT_ITS ---
EXAMINATION:CT diagnostic chest wo con DATE: 02/26/2023 13:22 INDICATION: Other disorders of lung. Chest heaviness. TECHNIQUE: Computed tomography (CT) of the chest was performed without intravenous contrast. Automate d exposure control and iterative reconstruction technique were employed. The dose-length product (DLP ) was 157.10 mGy-cm. COMPARISON: Chest CT 05/25/2020 FINDINGS: There is mild emphysema. There is mild dependent atelectasis bilaterally. No pleural effusi on. The heart size is normal. There are coronary artery calcifications. No pericardial effusion. Ther e is severe cervical and thoracic spondylosis. IMPRESSION: 1. Mild emphysema. Reviewed, dictated and finalized at location A. IMPRESSION: 1. Mild emphysema.
== END 2023-02-26 13:00 | disposition home or self-care (01) ==
LOC: ANHIMG 13:04
PROVIDERS: PCP Nurse Practitioner; Visit Provider Physician Assistant
DX: J44.9 Chronic obstructive pulmonary disease, unspecified (principal); J84.9 Interstitial pulmonary disease, unspecified; Z87.891 Personal history of nicotine dependence; J43.9 Emphysema, unspecified
CPT/HCPCS: 71250

== ENCOUNTER 2023-05-03 11:00 | Outpatient (CLI) | payer MEDICARE, SELFPAY ==
[2023-05-03 11:43] LABS: Alanine Aminotransferase 24 U/L (6-35); Albumin Level 4.2 g/dL (3.5-5.1); Alkaline Phosphatase 55 U/L (38-126); Anion Gap 9 mmol/L (8-16); Aspartate Amino Transferase 23 U/L (14-36); Bilirubin,Total 0.4 mg/dL (0.2-1.3); Blood Urea Nitrogen 11 mg/dL (7-17); Calcium 9.6 mg/dL (8.4-10.2); Carbon Dioxide 26 mmol/L (22-30); Chloride 101 mmol/L (98-107); Cholesterol 161 mg/dL (0-200); Estimated Glomerular Filt Rate > 60; Glucose 171 mg/dL (65-110); HDL Direct 48 mg/dL; Sodium 136 mmol/L (137-145); Triglycerides 225 mg/dL (<150)
[2023-05-03 11:54] LABS: LDL Cholesterol Direct 84 mg/dL
[2023-05-03 12:17] LABS: Iron 66 ug/dL (37-170)
[2023-05-03 12:26] LABS: Percent Iron Saturation 19 % (20-50)
[2023-05-03 13:32] LABS: Hemoglobin A1C 6.1 % (<5.7)
== END 2023-05-03 11:01 | disposition home or self-care (01) ==
LOC: ANHLAB 11:02
PROVIDERS: PCP Nurse Practitioner; Visit Provider Nurse Practitioner
DX: E78.5 Hyperlipidemia, unspecified (principal); E11.9 Type 2 diabetes mellitus without complications; E61.1 Iron deficiency
CPT/HCPCS: 36415; 80053; 80061; 83036; 83540; 83550

== ENCOUNTER 2023-06-07 10:03 | Outpatient (CLI) | payer MEDICARE, SELFPAY ==
--- NOTE | ~2023-06-07 | XR_ITS ---
AP and lateral views of the left hip Clinical history: Pain Findings: No acute fracture or dislocation is seen. Osseous alignment is anatomic. Left hip joint spa ce is preserved. There is mild spurring at the left superolateral acetabular margin. Soft tissues are unremarkable. Impression: Mild degenerative change, as above. Reviewed, dictated and finalized at location . [employer] Impression: Mild degenerative change, as above.
== END 2023-06-07 10:04 | disposition home or self-care (01) ==
PROVIDERS: PCP Nurse Practitioner; Visit Provider Nurse Practitioner
DX: M25.552 Pain in left hip (principal)
CPT/HCPCS: 73502

== ENCOUNTER 2023-09-02 16:02 | Outpatient (CLI) | payer MEDICARE, SELFPAY ==
[2023-09-02 17:19] LABS: Appearance Urine Clear (Clear); Bacteria Urine None Seen /hpf; Bilirubin Urine Negative (Negative); Blood Urine Negative (Negative); Color Urine Dark Yellow (Yellow); Glucose Urine UA Negative (Negative); Ketones Urine Negative (Negative); Leukocyte Esterase Ur Negative LEU/UL (Negative); Need Manual Microscopic Reviewed; Nitrate Urine Positive (Negative); Non Pathogenic Casts 0-2; Protein Urine Negative (Negative); RBC Urine 0-2 /hpf (0-2); Specific Grav Ur 1.012 (1.001-1.035); Squamous Epithelial Cell Urine None seen /hpf (Few); Urobilinogen Urine 0.2 mg/dL (<2.0); WBC Urine 0-5 /hpf; pH Urine 5.5 (5.0-9.0)
[2023-09-02 17:21] LABS: Add Urine Microscopic? YES
== END 2023-09-02 16:03 | disposition home or self-care (01) ==
LOC: ANHLAB 16:04
PROVIDERS: PCP Nurse Practitioner; Visit Provider Nurse Practitioner
DX: R39.9 Unspecified symptoms and signs involving the genitourinary system (principal)
CPT/HCPCS: 81001

== ENCOUNTER 2023-12-05 10:59 | Outpatient (CLI) | payer MEDICARE, SELFPAY ==
[2023-12-05 11:47] LABS: Hematocrit 42.8 % (37.0-47.0); Hemoglobin 13.6 g/dL (12.0-15.0); Mean Corpuscular HGB Conc 31.8 g/dl (32-36); Mean Corpuscular Volume 94.3 fl (80-100); Mean Platelet Volume 9.1 fl (7.4-10.4); Platelet Count Result 391 k/mm3 (150-375); Red Blood Count 4.54 M/mm3 (4.2-5.4); Red Cell Distribution Width 13.3 % (11.5-14.5); White Blood Count 8.9 K/mm3 (4.5-10.0)
[2023-12-05 12:00] LABS: Alanine Aminotransferase 32 U/L (6-35); Albumin Level 4.4 g/dL (3.5-5.1); Alkaline Phosphatase 57 U/L (38-126); Anion Gap 10 mmol/L (4-12); Aspartate Amino Transferase 28 U/L (14-36); Bilirubin,Total 0.5 mg/dL (0.2-1.3); Blood Urea Nitrogen 9 mg/dL (7-17); Calcium 9.1 mg/dL (8.4-10.2); Carbon Dioxide 27 mmol/L (22-30); Chloride 102 mmol/L (98-107); Cholesterol 183 mg/dL (0-200); Estimated Glomerular Filt Rate > 60; Glucose 131 mg/dL (65-110); HDL Direct 56 mg/dL; Potassium 3.4 mmol/L (3.4-5.0); Sodium 139 mmol/L (137-145); Triglycerides 285 mg/dL (<150)
[2023-12-05 12:11] LABS: LDL Cholesterol Direct 103 mg/dL
[2023-12-05 12:23] LABS: Iron 95 ug/dL (37-170)
[2023-12-05 12:26] LABS: Hemoglobin A1C 6.3 % (<5.7)
[2023-12-05 12:35] LABS: Percent Iron Saturation 30 % (20-50)
== END 2023-12-05 11:00 | disposition home or self-care (01) ==
LOC: ANHLAB 11:02
PROVIDERS: PCP Nurse Practitioner; Visit Provider Nurse Practitioner
DX: E78.5 Hyperlipidemia, unspecified (principal); E61.1 Iron deficiency; E03.9 Hypothyroidism, unspecified; E11.9 Type 2 diabetes mellitus without complications; E53.8 Deficiency of other specified B group vitamins
CPT/HCPCS: 36415; 80053; 80061; 82607; 83036; 83540; 83550; 84443; 85027

== ENCOUNTER 2024-01-04 11:28 | Outpatient (CLI) | payer MEDICARE, SELFPAY ==
--- NOTE | ~2024-01-04 | XR_ITS ---
EXAMINATION: XR chest 2V DATE: 01/04/2024 11:42 INDICATION: Dyspnea, unspecified. TECHNIQUE: Frontal and lateral views of the chest were obtained. COMPARISON: Chest 2 views 07/22/2020 FINDINGS: There is no pneumonia, pleural effusion, or pneumothorax. The heart size is normal. IMPRESSION: 1. No acute cardiopulmonary disease. Reviewed, dictated and finalized at location E.
== END 2024-01-04 11:29 | disposition home or self-care (01) ==
LOC: ANHIMG 11:30
PROVIDERS: PCP Nurse Practitioner; Visit Provider Physician Assistant
DX: R06.00 Dyspnea, unspecified (principal); J44.9 Chronic obstructive pulmonary disease, unspecified
CPT/HCPCS: 71046

== ENCOUNTER 2024-01-04 19:35 | Emergency (ER) | payer MEDICARE, SELFPAY ==
[2024-01-04 19:41] VITALS: BP 178/81; PULSE 105; RESP 17; TEMP 36.4; O2SAT 98
[2024-01-04 19:45] LABS: Glucose Point of Care 185 mg/dl (65-105)
--- NOTE | 2024-01-04 20:22 | ED.RECABL ---
HPI - Recheck/Abnormal Lab/Rx General Chief Complaint: Recheck/Abnormal Lab/Rx Stated Complaint: high BS, type II DM Time Seen by Provider: 01/04/24 20:04 Source: patient Mode of arrival: ambulatory Limitations: no limitations History of Present Illness HPI narrative: Patient is a 78 y/o female who presents to the ED with c/o elevated BG. patient reports she was recently diagnosed with RSV at beginning of December. She has been feeling improved overall since then, but complains of a persistent cough. Notes she has had production of clear sputum. She has been seeing her primary care doctor for this and has been on 2 separate courses of prednisone. She has also been on a course of antibiotics. She states over the last few days, her blood sugars have been elevated into the low 200s. Her blood sugars typically are around 130-140. She is on metformin for her diabetes. Denies insulin use. She also reports over the last few days feeling very jittery, with intermittent midsternal chest pain. Denies chest pain currently. Denies significant shortness breath. denies fevers. Related Data Home Medications Medication Instructions Recorded Confirmed betamethasone dipropionate 0.05 % 1 applic topical DAILY PRN Itching 05/11/19 12/04/23 topical cream ferrous sulfate 325 mg (65 mg 325 mg PO BID 07/13/19 12/04/23 iron) tablet fluticasone propionate 50 1 spray intranasal DAILY 07/13/19 12/04/23 mcg/actuation nasal spray,suspension (Flonase Allergy Relief) calcium carb-vit D3-minerals 600 1 tablet PO DAILY 07/28/20 12/04/23 mg calcium-400 unit tablet acetaminophen 650 mg 650 mg PO Q12H 02/19/22 12/04/23 tablet,extended release (Tylenol Arthritis Pain) mecobalamin (vitamin B12) 1,000 1,000 mcg PO .MWF 04/19/22 12/04/23 mcg chewable tablet Allergies Allergy/AdvReac Type Severity Reaction Status Date / Time codeine Allergy Unknown fallling Verified 01/04/24 21:45 Review of Systems Review of Systems: CONSTITUTIONAL: Denies fever, chills, or sweats. ENT: Denies rhinorrhea, congestion, sore throat. CARDIOVASCULAR: See HPI. RESPIRATORY: See HPI. GASTROINTESTINAL: Denies abdominal pain, nausea, vomiting All systems reviewed & are unremarkable except as noted in HPI and below PMFSH Past Medical History Medical History Acute on chronic blood loss anemia Anxiety and depression Arthritis Chronic obstructive pulmonary disease Essential hypertension Fatty liver Gastroesophageal reflux disease History of tobacco use Roughly 120 pack year smoking history, quit in 2006. Hypothyroidism Hypovitaminosis D Iron deficiency anemia With history of blood transfusions, on iron supplementations. Had previously received iron infusions per Dr. Marc. Lumbar spine pain Major depressive disorder, single episode, unspecified Mixed hyperlipidemia Palpitations (~10/2017) Echocardiogram and Holter monitor were unrevealing. Thyroid disease Trochanteric bursitis of both hips Type 2 diabetes mellitus without complication Hemoglobin A1c was 5.4% in 03/2020. Surgical History Surgical History History of appendectomy History of bilateral carpal tunnel release History of cholecystectomy History of partial hysterectomy History of rotator cuff surgery History of tonsillectomy Family History Family History Mother Hypertension Cerebrovascular accident Family history of diabetes mellitus in first degree relative Family history of congestive heart failure Father Family history of throat cancer Sibling Carcinoma of colon Family history of malignant neoplasm of breast Other Family history of coronary artery disease Social History Social History Social History: The patient is m
[2024-01-04 20:34] LABS: Appearance Urine Clear (Clear); Basophils Percent Auto 0.1 % (0.2-1.2); Bilirubin Urine Negative (Negative); Blood Urine Negative (Negative); Color Urine Yellow (Yellow); Glucose Urine UA Negative (Negative); Hematocrit 40.3 % (37.0-47.0); Hemoglobin 13.4 g/dL (12.0-15.0); Immature Granulocyte Absolute 0.04 K/mm3 (0.00-0.031); Immature Granulocyte Percent A 0.4 % (0-0.5); Ketones Urine 1+ mg/dL (Negative); Leukocyte Esterase Ur Negative LEU/UL (Negative); Lymphocytes Absolute Auto 1.03 K/mm3 (0.9-3.2); Lymphocytes Percent Auto 10.2 % (18.3-44.2); Mean Corpuscular HGB Conc 33.3 g/dl (32-36); Mean Corpuscular Hemoglobin 30.2 pg (26-34); Mean Corpuscular Volume 90.8 fl (80-100); Mean Platelet Volume 9.1 fl (7.4-10.4); Monocytes Absolute Auto 0.7 K/mm3 (0.1-0.6); Monocytes Percent Auto 6.9 % (2.6-8.5); Neutrophils Absolute Auto 8.3 K/mm3 (1.3-6.7); Neutrophils Percent Auto 82.4 % (45.5-73.1); Nitrate Urine Negative (Negative); Platelet Count Result 393 k/mm3 (150-375); Protein Urine Negative (Negative); Red Blood Count 4.44 M/mm3 (4.2-5.4); Red Cell Distribution Width 13.2 % (11.5-14.5); Specific Grav Ur 1.015 (1.001-1.035); Urobilinogen Urine 0.2 mg/dL (<2.0); White Blood Count 10.1 K/mm3 (4.5-10.0); pH Urine 5.5 (5.0-9.0)
[2024-01-04 20:35] LABS: Add Urine Microscopic? NO
[2024-01-04 20:53] LABS: Albumin Level 5.1 g/dL (3.5-5.1); Alkaline Phosphatase 60 U/L (38-126); Anion Gap 16 mmol/L (4-12); Aspartate Amino Transferase 31 U/L (14-36); Bilirubin,Total 0.5 mg/dL (0.2-1.3); Blood Urea Nitrogen 15 mg/dL (7-17); Calcium 9.9 mg/dL (8.4-10.2); Carbon Dioxide 19 mmol/L (22-30); Chloride 100 mmol/L (98-107); Estimated Glomerular Filt Rate > 60; Glucose 183 mg/dL (65-110); Potassium 3.7 mmol/L (3.4-5.0); Sodium 135 mmol/L (137-145)
[2024-01-04 20:56] LABS: Alanine Aminotransferase 37 U/L (6-35)
[2024-01-04 21:24] VITALS: BP 149/63; PULSE 91; RESP 20; O2SAT 97
--- NOTE | 2024-01-04 21:30 | ECG_ITS ---
Test Date: 2024-01-04 21:40:53 Measurements Intervals [place] Rate: 90 P: 82 TN: 207 QRS: 19 QRSD: 98 T: 42 QT: 368 QTc: 451 Interpretive Statements SINUS RHYTHM No previous ECG available for comparison Electronically Signed On 01-05-2024 16:12:21 CDT by Vin Cruz M.D.
[2024-01-04] MEDS: SODIUM CHLORIDE 0.9% IV 1,000 ML 999 ML IV CONT (21:44)
[2024-01-04 22:10] LABS: Troponin I < 0.012 ng/mL (0.000-0.034)
[2024-01-04 22:15] VITALS: BP 144/71; PULSE 92; RESP 17; O2SAT 98
[2024-01-04 22:42] LABS: Glucose Point of Care 164 mg/dl (65-105)
[2024-01-04 23:13] LABS: Anion Gap 11 mmol/L (4-12); Blood Urea Nitrogen 14 mg/dL (7-17); Calcium 9.5 mg/dL (8.4-10.2); Carbon Dioxide 22 mmol/L (22-30); Chloride 103 mmol/L (98-107); Estimated Glomerular Filt Rate > 60; Glucose 170 mg/dL (65-110); Potassium 3.5 mmol/L (3.4-5.0); Sodium 136 mmol/L (137-145)
== END 2024-01-04 23:31 | disposition home or self-care (01) ==
PROVIDERS: Emergency Provider Physician Assistant; PCP Nurse Practitioner
DX: E11.65 Type 2 diabetes mellitus with hyperglycemia (principal); E86.0 Dehydration; Z92.241 Personal history of systemic steroid therapy; Z87.09 Personal history of other diseases of the respiratory system; J44.9 Chronic obstructive pulmonary disease, unspecified; I10 Essential (primary) hypertension; E78.2 Mixed hyperlipidemia; E55.9 Vitamin D deficiency, unspecified; E03.9 Hypothyroidism, unspecified; K21.9 Gastro-esophageal reflux disease without esophagitis; F41.9 Anxiety disorder, unspecified; F32.9 Major depressive disorder, single episode, unspecified; Z87.891 Personal history of nicotine dependence; Z79.84 Long term (current) use of oral hypoglycemic drugs; Z79.899 Other long term (current) drug therapy; M19.90 Unspecified osteoarthritis, unspecified site; Z90.49 Acquired absence of other specified parts of digestive tract; Z90.711 Acquired absence of uterus with remaining cervical stump
CPT/HCPCS: 36415; 71046; 80048; 80053; 81003; 82948; 84484; 85025; 93005; 96360; 99284; J7030

== ENCOUNTER 2024-10-20 13:50 | Outpatient (CLI) | payer MEDICARE, SELFPAY ==
--- NOTE | ~2024-10-20 | XR_ITS ---
EXAMINATION: XR lg joint inject/asp w image DATE: 10/20/2024 14:48 INDICATION: Bilateral hip pain TECHNIQUE: A time-out was performed to verify the patient's name, date of , and procedure to b e performed. The procedure including the risks, benefits, and alternatives was discussed with the pat ient. Risks discussed included bleeding and infection. The patient understood the risks and agreed to proceed. The skin overlying the right hip joint was prepped and draped in usual sterile fashion. A nesthetic was administered with 1% lidocaine subcutaneously. A 22 G needle was advanced under fluoro scopic guidance into the joint. Injection of 1 mL of Omnipaque 240 confirmed intra-articular positio n of the needle. Subsequently, injectate consisting of 3 mL of a 2:1 mixture of 0.5% bupivacaine: 80 mg/mL Depo-Medrol for a total dosage of 80 mg Depo-Medrol was instilled. Washout of contrast was see n confirming intra-articular administration. The needle was removed and the entry site was cleaned an d dressed. There were no immediate complications. Fluoroscopy exposure time was 0.1 minutes. The tot al number of images was 2. Total DAP was 0.434 Gycm^2 FINDINGS: Real-time fluoroscopy demonstrates the needle in the right hip joint. Patient's pain prior to procedure:5/10. Patient's pain following the procedure: 0/10. IMPRESSION: 1. Successful right hip joint injection of local anesthetic and steroid with decrease in the patient' s presenting pain. Reviewed, dictated and finalized at location A. IMPRESSION: 1. Successful right hip joint injection of local anesthetic and steroid with de crease in the patient's presenting pain.
--- OUTSIDE RECORDS SUMMARY | 2024-10-20 14:59 | XMS_ITS | Patient Health Record ---
Author Organization [facility] Address [address], [place] [address] Support Name Relationship Address Phone Jasmyn Moncada Guarantor Unknown [phone] Reason For Referral No Information Plan Of Treatment No Information
--- OUTSIDE RECORDS SUMMARY | 2024-10-20 14:59 | XMS_ITS | Data Portability ---
Author Organization [place] [facility], Main Office Address [address] [place] [address] Care Team Providers Care Oil Mixer Name Role Phone RIGOBERTO TUCKER Primary Care Provider Assessment Encounter Date Assessment Date Assessment LastModified by Organization Details LastModified Time 12/24/2023 12/24/2023 This note is dictated and transcribed by [email or web address]. Orientor variances may occur. Despite proofreading, typographical errors may occur. Occasional wrong-word or 'vhvog-r-seku' substitutions may have occurred due to the inherent limitations of voice recording. Read the chart carefully and recognize, using context, where substitutions have occurred. Not available 12/24/2023 12:54:50 03/24/2024 03/24/2024 This note is dictated and transcribed by [email or web address]. Orientor variances may occur. Despite proofreading, typographical errors may occur. Occasional wrong-word or 'hausn-p-ldts' substitutions may have occurred due to the inherent limitations of voice recording. Read the chart carefully and recognize, using context, where substitutions have occurred. Not available 03/24/2024 14:02:43 06/23/2024 06/23/2024 This note is dictated and transcribed by [email or web address]. Orientor variances may occur. Despite proofreading, typographical errors may occur. Occasional wrong-word or 'hebrq-p-fmsv' substitutions may have occurred due to the inherent limitations of voice recording. Read the chart carefully and recognize, using context, where substitutions have occurred. Not available 06/23/2024 12:25:04 Plan of Treatment Reminders Order Date Submit Date Provider Last Modified By Organization Details Last Modified Time Details Appointments Establish ed Patient 15 2024 10:15A M Cleveland Bebo, DPM Not available Not available Not available Lab None recorded. Referral None recorded. Procedures None recorded. Surgeries None recorded. Imaging None recorded. Medication Orders None recorded. Patient TargetsNo targets recorded. Patient InstructionsNo instructions recorded. Reason for Referral None Reported. Problems Name Problem SNOMED Code Status Onset Date Resolution Date Notes Provider Name and Address Organization Details Recorded Time Tendinitis of right shoulder 5199215215702 101 Active 2019 Not Available [facility] 3 02:50:48 Disorder of shoulder 258609756 Active Not Available [facility] 3 02:50:48 Open wound of toe 237080224 Active 2021 Not Available [facility] 3 02:50:48 Disorder of sacrum 62278817 Active Not Available [facility] 3 02:50:48 Asthma 775864162 Active 2017 Not Available [facility] 3 02:50:48 Localized, primary osteoarthr itis of the shoulder region 864206282 Active Not Available [facility] 3 02:50:49 Partial thickness rotator cuff tear 933569366 Active Not Available [facility] 3 02:50:49 Full thickness rotator cuff tear 529784227 Active 2018 Not Available [facility] 3 02:50:49 Ankle pain 772132675 Active 2020 Not Available [facility] 3 02:50:49 Shoulder joint pain 390050151 Active Not Available [facility] 3 02:50:49 Anemia 008423596 Active 2017 Not Available [facility] 3 02:50:49 Low back pain 489822591 Active Not Available [facility] 3 02:50:49 Unable to cut own toenails 021161482 Active 2020 Not Available [facility] 3 02:50:49 Adnexal tenderness 396520767 Active Not Available [facility] 3 02:50:49 Back problem 534958207 Active Not Available [facility] 3 02:50:49 Enthesopat hy of hip region 54026644 Active Not Available [facility] 3 02:50:49 Pain of left hip joint 4958754314497 00 Active 2021 Not Available [facility] 3 02:50:49 Bronchitis 32426405 Active 2017 Not Available [facility] 3 02:50:50 Arthritis 6061393 Active 2017 Not Available [facility] 3 02:50:50 Osteoarthr osis of the carpometac arpal joint of the thumb 28921395 Active 2018 Not Available [facility] 3 02:50:50 Hypertensi ve disorder 70443384 Active 2017 Not Available [facility] 3 02:50:50 Osteoarthr itis 177297112 Active 2017 Not Available [facility] 3 02:50:50 Bunion 067422578 Active 2017 Not Available [facility] 3 02:50:50 Diabetic peripheral neuropathy 469173256 Active 2017 Not Available [facility] 3 02:50:50 Lumbosacra l spondylosi s without myelopathy 76886671 Active Not Available [facility] 3 02:50:50 Brachial neuritis 10424655 Active Not Available [facility] 3 02:50:50 Diabetes mellitus 50751413 Active 2017 Not Available [facility] 3 02:50:50 Degenerati on of interverte bral disc 61631279 Active Not Available [facility] 3 02:50:50 Cyst of ovary 77853457 Active Not Available [facility] 3 02:50:51 Spinal stenosis in cervical region 99134067 Active Not Available [facility] 3 02:50:51 Dystrophia unguium 23335504 Active 2017 Not Available [facility] 3 02:50:51 Bunion 573207987 Active 3 Cleveland Lagunas, DPM [address] [facility] [address], [place], [address] , [facility] 3 12:17:11 Pain in toe 619198378 Active 2022 Cleveland Lagunas DPM [address], [place], [address] , [employer] 11:38:24 Notes:back problems, ear pro blems, lung disorder - COPD, thyroid disease Problem Notes None recorded. Procedures Surgical History Date Name Laterality Status Provider Name and Address Organization Details Recorded Time 06/23/20 24 Nail Debridement completed Cleveland Lagunas DPM [address], [place], [address], [employer] [facility] 06/23/2024 12:24:57 03/24/20 24 Nail Debridement completed Cleveland Lagunas DPM [address], [place], [address], [employer] 03/24/2024 14:02:08 12/24/19 24 Nail Debridement completed Cleveland Lagunas DPM [address], [place], [address], [employer] [facility] 12/24/2023 12:55:36 06/25/20 23 Nail Debridement completed Cleveland Lagunas DPM [address], [place], [address], [employer] [facility] 06/25/2023 11:38:10 03/26/20 23 Nail Debridement completed Cleveland Lagunas DPM [address], [place], [address], [employer] [facility] 03/26/2023 16:22:50 12/21/19 23 Nail Debridement completed Cleveland Lagunas DPM [address], [place], [address], [employer] [facility] 12/20/2022 12:53:51 09/21/19 23 Nail Debridement completed Cleveland Lagunas DPM [address], [place], [address], [employer] [facility] 09/20/2022 12:14:54 Remove tonsils and adenoids completed Not Available [facility] 09/05/2022 02:44:52 procedure on gallbladder completed Not Available [facility] 09/05/2022 02:44:52 Appendectomy completed Not Available [facility] 09/05/2022 02:44:52 Rotator cuff surgery completed Not Available [facility] 09/05/2022 02:44:52 Hysterectomy completed Not Available [facility] 09/05/2022 02:44:52 Imaging Results None recorded. Procedure Notes None recorded. Medical Equipment None Reported. Allergies Allergen ID Allergen Name Allergen Category Reaction Reaction Severity Criticality Documentation Date Start Date Code Code System Note Provider Name and Address Organization Details Recorded Time 4466 codeine medicatio n Not available Not available Not available 09/05/2022 2670 RxNorm Not Available [facility] 02:58:12 Medications Name Sig Start Date Stop Date Status Note LastModified by Organization Details LastModified Time celecoxib 200 mg capsule Take 1 capsule every day by oral route. active Not Available Not Available No t Available amoxicillin 500 mg capsule active Not Available Not Available Not Available prednisone 10 mg tablet TAKE 4 TABLETS BY MOUTH DAILY FOR 5 DAYS active Not Available Not Available No t Available paroxetine 10 mg tablet TAKE 1 TABLET BY MOUTH DAILY active Not Available Not Available No t Available albuterol sulfate 2.5 mg/3 mL (0.083 %) solution for nebulizatio n USE 1 VIAL VIA NEBULIZER FOUR TIMES DAILY NEEDED FOR SHORTNESS OF BREATH OR WHEEZING active Not Available Not Available No t Available azithromyci n 250 mg tablet active Not Available Not Available Not Available ofloxacin 0.3 % eye drops 01/10 completed Not Available Not Available Not Available fluconazole 150 mg tablet 02/07 completed Not Available Not Available Not Available benzonatate 200 mg capsule TAKE 1 CAPSULE BY MOUTH THREE TIMES DAILY NEEDED FOR COUGH active Not Available Not Available No t Available hydrocodone 5 mg-acetamin ophen 325 mg tablet 09/16 completed Not Available Not Available Not Available meloxicam 15 mg tablet 09/16 completed Not Available Not Available Not Available glipizide 10 mg tablet TK 1 T PO QD BEFORE A MEAL. 01/10 completed Not Available Not Available Not Available prednisone 20 mg tablet TAKE 2 TABLETS BY MOUTH DAILY FOR 5 DAYS active Not Available Not Available No t Available ciprofloxac in 500 mg tablet 03/24 completed Not Available Not Available Not Available omeprazole 40 mg capsule,del ayed release TAKE 1 CAPSULE BY MOUTH DAILY active Not Available Not Available No t Available aspirin 81 mg tablet,soumya yed release Take 1 tablet every day by oral route. 05/25 completed Not Available Not Available Not Available ketorolac 0.5 % eye drops 01/10 completed Not Available Not Available Not Available prednisone 10 mg tablets in a dose pack Take 1 tab by mouth, 3 times a day for 3 daysTake 1 tab by mouth 2 times a day for 2 daysTake 1 tab by mouth once a day for 1 day active Not Available Not Available No t Available levothyroxi ne 100 mcg tablet TAKE 1 TABLET BY MOUTH DAILY active Not Available Not Available No t Available ofloxacin 0.3 % ear drops INSTILL 6 DROPS IN LEFT EAR THREE TIMES DAILY FOR 10 DAYS active Not Available Not Available No t Available alprazolam 0.25 mg tablet 09/16 completed Not Available Not Available Not Available prednisolon e acetate 1 % eye drops,suspe nsion 01/10 completed Not Available Not Available Not Available Kenalog 10 mg/mL suspension for injection In office injection administe red by the provider active [facility]: 0003- 0494- 20 Not Available Not Available Not Available diazepam 2 mg tablet TK 1 T PO TID 02/07 completed Not Available Not Available Not Available hydrocodone 7.5 mg-acetamin ophen 325 mg tablet TAKE 1 TABLET BY MOUTH EVERY 6 HOURS NEEDED active Not Available Not Available No t Available cephalexin 500 mg capsule TK ONE C PO BID active Not Available Not Available No t Available pantoprazol e 40 mg tablet,soumya yed release TAKE 1 TABLET BY MOUTH EVERY DAY active Not Available Not Available No t Available cyanocobala min (vit B-12) 1,000 mcg/mL injection solution INJECT 1000 MCG SUBCUTANE OUSLY DAILY FOR 5 DAYS. THEN 1000MCG SUBCUTANE OUSLY ONCE PER WEEK. 01/10 completed Not Available Not Available Not Available ferrous sulfate 325 mg (65 mg iron) tablet TK 1 T PO BID active Not Available Not Available No t Available fluconazole 50 mg tablet 09/16 completed Not Available Not Available Not Available metformin 1,000 mg tablet TAKE 1 TABLET BY MOUTH TWICE DAILY active Not Available Not Available No t Available Advair Diskus 250 mcg-50 mcg/dose powder for inhalation INHALE 1 PUFF PO BID IN THE MORNING AND EVENING APPROXIMA TELY 12 H APART 03/24 completed Not Available Not Available Not Available betamethaso ne dipropionat e 0.05 % topical cream active Not Available Not Available Not Available montelukast 10 mg tablet TAKE 1 TABLET BY MOUTH DAILY 04/10 completed Not Available Not Available Not Available pravastatin 20 mg tablet TAKE 1 TABLET BY MOUTH DAILY active Not Available Not Available No t Available azelastine 137 mcg (0.1 %) nasal spray INSTILL 1 SPRAY IN EACH NOSTRIL EVERY 12 HOURS active Not Available Not Available No t Available ibuprofen 600 mg tablet TAKE 1 TABLET BY MOUTH EVERY 4 HOURS NEEDED FOR PAIN active Not Available Not Available No t Available levofloxaci n 750 mg tablet TAKE 1 TABLET BY MOUTH DAILY active Not Available Not Available No t Available methylpredn isolone 4 mg tablets in a dose pack 09/16 completed Not Available Not Available Not Available albuterol sulfate HFA 90 mcg/actuati on aerosol inhaler INHALE 1 TO 2 PUFFS BY MOUTH EVERY 4 TO 6 HOURS NEEDED FOR SHORTNESS OF BREATH OR WHEEZING active Not Available Not Available No t Available cefdinir 300 mg capsule TK 1 C PO BID 03/24 completed Not Available Not Available Not Available glipizide 5 mg tablet 01/10 completed Not Available Not Available Not Available Microlet Lancet TEST BLOOD SUGAR THREE TIMES DAILY DIRECTED active Not Available Not Available No t Available amoxicillin 875 mg-potassiu m clavulanate 125 mg tablet 09/16 completed Not Available Not Available Not Available nebulizer accessories kit 2018 active Not Available Not Available Not Avai lable Pneumovax-2 3 25 mcg/0.5 mL injection syringe 09/16 completed Not Available Not Available Not Available cyclobenzap rine 5 mg tablet 03/24 completed Not Available Not Available Not Available ciprofloxac in 0.3 %-dexametha sone 0.1 % ear drops,suspe nsion INSTILL 5 DROPS IN LEFT EAR 2-3 TIMES A WEEK active Not Available Not Available No t Available nitrofurant oin monohydrate /macrocryst als 100 mg capsule TAKE 1 CAPSULE BY MOUTH EVERY 12 HOURS FOR 7 DAYS active Not Available Not Available No t Available losartan 100 mg-hydrochl orothiazide 12.5 mg tablet TAKE 1 TABLET BY MOUTH DAILY active Not Available Not Available No t Available calcium 2020 active Not Available Not Available Not Avai lable cranberry 04/10 completed Not Available Not Available Not Available omeprazole 03/06 completed Not Available Not Available Not Available Pawan Aspirin 04/10 completed Not Available Not Available Not Available Flax Seed Oil 01/10 completed Not Available Not Available Not Available Calcium 500 + D 11/23 completed Not Available Not Available Not Available betamethaso ne dipropion (bulk) 05/25 completed Not Available Not Available Not Available lidocaine (PF) 10 mg/mL (1 %) injection solution In office injection administe red by the provider active [facility]: 0409- 4276- 17 Not Available Not Available Not Available Januvia 100 mg tablet TAKE 1 TABLET BY MOUTH DAILY 04/10 completed Not Available Not Available Not Available Alaway 0.025 % (0.035 %) eye drops INSTILL 1 DROP INTO AFFECTED EYE(S) BY OPHTHALMI C ROUTE 2 TIMES PER DAY 01/10 completed Not Available Not Available Not Available Alaway 11/23 completed Not Available Not Available Not Available Symbicort 160 mcg-4.5 mcg/actuati on HFA aerosol inhaler active Not Available Not Available Not Available ferrous sulfate 324 mg (65 mg iron) tablet,soumya yed release Take by oral route. 01/10 completed Not Available Not Available Not Available ropivacaine (PF) 5 mg/mL (0.5 %) injection solution Take 20 mg by injection route. active Not Available Not Available No t Available OneTouch Verio test strips TEST BLOOD SUGAR EVERY DAY DIRECTED active Not Available Not Available No t Available Combivent Respimat 20 mcg-100 mcg/actuati on solution for inhalation 09/16 completed Not Available Not Available Not Available OneTouch Delica Lancets 30 gauge USE ONE LANCET TO TEST ONCE D active Not Available Not Available No t Available Anoro Ellipta 62.5 mcg-25 mcg/actuati on powder for inhalation INL 1 PUFF PO QD AT THE SAME TIME EACH DAY 01/10 completed Not Available Not Available Not Available Flonase Allergy Relief 50 mcg/actuati on nasal spray,suspe nsion [place] 1 spray every day by intranasa l route. 01/10 completed Not Available Not Available Not Available Flonase Allergy Relief 2018 active Not Available Not Available Not Avai lable Pazeo 0.7 % eye drops INT 1 GTT IN OU QD PRN active Not Available Not Available No t Available Fluzone High-Dose (PF) 180 mcg/0.5 mL intramuscul ar syringe 05/25 completed Not Available Not Available Not Available Bevespi Aerosphere 9 mcg-4.8 mcg HFA aerosol inhaler INHALE 2 PUFFS BY MOUTH TWICE DAILY active Not Available Not Available No t Available fluticasone 113 mcg-salmete rol 14 mcg/actuati on breath activated powdr INHALE 1 PUFF BY MOUTH TWICE DAILY. RINSE MOUTH AND SPIT AFTER EACH DOSE active Not Available Not Available No t Available Fluzone High-Dose (PF) 180 mcg/0.5 mL intramuscul ar syringe 09/16 completed Not Available Not Available Not Available Trelegy Ellipta 100 mcg-62.5 mcg-25 mcg powder for inhalation INHALE 1 PUFF PO QD AT THE SAME TIME EACH DAY 03/24 completed Not Available Not Available Not Available Fluzone High-Dose (PF) 180 mcg/0.5 mL intramuscul ar syringe 01/10 completed Not Available Not Available Not Available Fluad 65yr up(PF)45 mcg(15 mcgx3)/0.5 mL intramuscul ar syringe ADM 0.5ML IM UTD 01/10 completed Not Available Not Available Not Available OneTouch Verio Reflect Meter USE TO TEST BLOOD SUGARS EVERY DAY DIRECTED active Not Available Not Available No t Available Fluzone High-Dose Quad (PF) 240 mcg/0.7 mL IM syringe PHARMACY ADMINISTE RED 01/10 completed Not Available Not Available Not Available Vitals Date Recorded Body height Heart rate Respiratory rate Oxygen saturation Oxygen saturation in Arterial blood by Pulse oximetry Systolic blood pressure Diastolic blood pressure Provider Name and Address Organization Details Last Updated DateTime 3 149.86 cm 86 /min 14 /min 98 % 98 % 138 mm[Hg] 87 mm[Hg] Rose Dewayne [facility] [employer] [facility] 3 16:14:15 Date Recorded Body height Heart rate Respiratory rate Oxygen saturation Oxygen saturation in Arterial blood by Pulse oximetry Systolic blood pressure Diastolic blood pressure Provider Name and Address Organization Details Last Updated DateTime 3 149.86 cm 95 /min 14 /min 98 % 98 % 133 mm[Hg] 78 mm[Hg] Rose Buchanan [facility] [employer] [employer] [facility] 3 11:15:10 Date Recorded Body height Heart rate Respiratory rate Oxygen saturation Oxygen saturation in Arterial blood by Pulse oximetry Systolic blood pressure Diastolic blood pressure Provider Name and Address Organization Details Last Updated DateTime 4 149.86 cm 95 /min 14 /min 98 % 98 % 132 mm[Hg] 71 mm[Hg] Rose Buchanan [facility] [employer] [employer] [facility] 4 11:02:17 Date Recorded Body height Body mass index (BMI) Body weight Heart rate Respiratory rate Body temperature Oxygen saturation Oxygen saturation in Arterial blood by Pulse oximetry Systolic blood pressure Diastolic blood pressure Provider Name and Address Organization Details Last Updated DateTime 4 149.86 cm 28.3 kg/m2 65503.9 3 g 88 /min 14 /min 97.6 [degF] 98 % 98 % 130 mm[Hg] 70 mm[Hg] Sweta Mckeon [place] [employer] [facility] [employer] [facility] 4 12:34:18 Date Recorded Body height Body mass index (BMI) Body weight Heart rate Respiratory rate Oxygen saturation Oxygen saturation in Arterial blood by Pulse oximetry Systolic blood pressure Diastolic blood pressure Provider Name and Address Organization Details Last Updated DateTime 4 149.86 cm 28.3 kg/m2 08486.9 3 g 82 /min 14 /min 98 % 98 % 130 mm[Hg] 65 mm[Hg] Rose Dewayne [facility] [employer] [employer] [facility] 4 12:03:36 Social History Question Answer Notes LastModified by Organizat ion Details LastModified Time Tobacco Smoking Status Former Smoker Not Available [facility] 09/05/2022 02:42:10 What Is Your Level Of Alcohol Consumption? None [id number] Information not available 09/05/2022 When Did You Quit Smoking? 17+yearssinc elastcigaret te [id number] Information not available 09/05/2022 Sex: Unknown Functional Status None recorded. Mental Status None recorded. Family History Relationship Description Onset Age of this Age Resolved Age Notes LastModified by Organization Details LastModified Time Unspecified Relation Family history of stroke grands on [id number] Not available 09/05/2022 02:44:57 Father Family history of malignant neoplasm [id number] Not available 09/05/2022 02:44:57 Mother Hypertensive disorder [id number] Not available 09/05/2022 02:44:57 Mother Diabetes mellitus [id number] Not available 09/05/2022 02:44:57 Notes:father - lung cancer STROKE Medical History Condition Response BLINDNESS N KIDNEY STONES N MRSA N CARPAL TUNNEL SYNDROME N LUNG DISEASE/DISORDER Y HISTORY OF DRUG ABUSE N RADIATION / CHEMOTHERAPY N COPD Y SPORTS INJURY N ANKLE PAIN N BLOOD DISEASES N SCHIZOPHRENIA N BOWEL PROBLEMS N SHOULDER PAIN N DEPRESSION (INCLUDING POST ) N STROKE/TIA N KNEE PAIN N ULCERS N BENIGN PROSTATIC HYPERPLASIA N OBESITY N GERD/NAUSEA N ANEURYSM N URINARY/BLADDER/KIDNEY PROBLEMS N CORONARY ARTERY DISEASE (CAD) N ADDICTION CONCERNS N USE OF BLOOD THINNERS N SKIN PROBLEMS N EMPHYSEMA N MUSCLE,JOINT OR BONE PROBLEMS N DVT N STOMACH ULCERS N BLOOD CLOTS N USE OF NSAIDS N CONCUSSION OR SPINAL TRAUMA N NEUROPATHY N AIDS/HIV N FRACTURES N ELBOW PAIN N HYPERTENSION Y TOURETTE'S N ANXIETY DISORDER N Metal allergy N BLOOD TRANSFUSION N ANEMIA/BLOOD DISORDER Y BIPOLAR DISORDER N BRONCHITIS N OSTEOARTHRITIS Y TUBERCULOSIS N FOOT PROBLEM N HEART VALVE DISORDERS N ALLERGIES/HAYFEVER N SOFT TISSUE INJURY N INFECTIOUS DISEASE N HEART ARRHYTHMIA N INSOMNIA N RHEUMATOID ARTHRITIS N HIGH CHOLESTEROL / HYPERLIPIDEMIA N EDEMA N CHRONIC PAIN SYNDROME N CAROTID BLOCKAGE N BACK / NECK PROBLEMS N HAVE YOU BEEN HOSPITALIZED OR SEEN IN [facility] IN THE PAST YEAR ? N BURSITIS N HERNIATED DISC N DIALYSIS N FIBROMYALGIA N OSTEOPOROSIS N ARTHRITIS Y NO SIGNIFICANT PAST MEDICAL HISTORY N PERIPHERAL NEUROPATHY N DIABETES, TYPE Y HEARTBURN / REFLUX N HEPATITIS / LIVER DISEASE N GOUT N SLEEP DISORDER N ALZHEIMER'S DISEASE N HERPES N HEADACHES/MIGRAINES N SEIZURES/EPILEPSY N VASCULAR DISEASE N HIP PAIN N Blood Disorder N DIZZINESS N HEAD TRAUMA OR INJURY N HEART DISEASE/HEART PROBLEMS N MULTIPLE SCLEROSIS N CANCER: SPECIFY N CARDIAC ARRHYTHMIA N ANESTHESIA COMPLICATIONS N ATRIAL FIBRILLATION N AUTOIMMUNE DISEASE N Gynecological HistoryNo gynecological history recorded. Obstetrics History GPAL:G 0 P 0 0 0 0 Past Encounters Encounter ID Performer Location Encounter Start Date Encounter Closed Date Diagnosis/Indication Diagnosis SNOMED-CT Code Diagnosis ICD10 Code Diagnosis Note [id number] [facility] [address] [facility], [address] [address] 09/20/2020 00:00:00 09/20/2020 10:00:27 [id number] [facility] [address] [place] [address], [address] [address] 12/20/2020 00:00:00 12/20/2020 10:00:36 [id number] [facility] [place] [address] [place] [address] 01/10/2021 00:00:00 01/10/2021 10:04:32 [id number] [facility] [place] [address] [place] [address] 02/07/2021 00:00:00 02/07/2021 10:22:28 [id number] [facility] [place] [address] [facility], [address] [address] 03/20/2021 00:00:00 03/20/2021 11:49:35 [id number] [facility] [place] [address] [place] [address], [address] [address] 06/19/2021 00:00:00 06/19/2021 09:46:49 [id number] [facility] [place] [address] [place] [address], [address] [address] 09/18/2021 00:00:00 09/18/2021 09:55:25 [id number] [facility] [place] [address] [address] 12/18/2021 00:00:00 12/18/2021 10:09:15 [id number] [facility] [place] [address] [facility], [facility] [address] [place] [address] 03/29/2022 00:00:00 03/29/2022 11:05:11 [id number] [facility] [place] [address] [place] [address] 04/10/2022 00:00:00 04/10/2022 11:19:45 [id number] [facility] [place] [address] [facility], [address] [address] 06/21/2022 00:00:00 06/21/2022 10:40:26 [id number] Cleveland Lagunas DPM [facility] [place] [address] [place] [address], [address] [address] 09/20/2022 11:37:58 09/20/2022 14:05:41 Diabetic peripheral neuropathy [id number] E11.40 Patient educated on neuropathy , diabetes, diabetic diet, and daily foot exams. Patient is to check feet daily for new wounds, blisters, redness to prevent infection and ulceration s to the feet. Patient will return to clinic in 3 months for diabetic foot workup. Dystrophia unguium 62413 009 L60.3 Nails 1 through 10 were debrided with sharp mechanical debridemen t without incident. Nails were debrided and greater than 50% length and thickness where needed. Unable to cut own toenails [id number] Z74.1 Bunion [id number] M21.61 1 M21.612 offloading to prevent wounds infection dailyConti nue supportive shoe- wide soft toe box shoes [id number] Cleveland Lagunas DPM [facility] [place] [address] [facility], [address] [address] 12/20/2022 12:40:20 12/20/2022 13:58:46 Diabetic peripheral neuropathy [id number] E11.40 continue diabetic control per PCP Dystrophia unguium 60762 009 L60.3 Nails were cut without incidentFo llow-up as needed Unable to cut own toenails [id number] Z74.1 [id number] Cleveland Lagunas DPM [facility] [address], [address] [address] 03/26/2023 16:07:22 03/26/2023 16:37:14 Diabetic peripheral neuropathy [id number] E11.40 continue diabetic control per PCPcheck feet daily for wounds infectionC ontinue supportive shoe gearFollow -up in 3 months for diabetic foot care Dystrophia unguium 65214 009 L60.3 Nails were cut without incidentFo llow-up as needed [id number] Cleveland Lagunas DPM [facility] [address], [address] [address] 06/25/2023 10:49:47 06/26/2023 11:43:46 Dystrophia unguium [id number] L60.3 Nails were cut without incidentFo llow-up as needed Pain in toe 777407910 M7 9.674 M79.675 secondary to nails [id number] Cleveland Lagunas DPM [facility] Pod[facility]ry [address], [address] [address] 12/24/2023 10:55:49 12/24/2023 15:50:07 Dystrophia unguium 41347344 L60.3 Nails were cut without incidentFo llow-up as needed Pain in toe 105876727 M7 9.674 M79.675 secondary to nails [id number] Cleveland [facility]as [facility] [address], [address] [address] 03/24/2024 12:29:30 03/25/2024 15:35:41 Diabetes mellitus 57550662 E11.42 Continue diabetic control per PCP recommenda tions Diabetic p eripheral neuropathy [id number] E11.40 check feet daily for wounds infectionC ontinue supportive shoe gearFollow -up in 3 months for diabetic foot care Dystrophia unguium 71291 009 L60.3 Nails were cut without incidentFo llow-up as needed [id number] Cleveland Lagunas DPM [facility] [place] [address], [address] [place] [address] 06/23/2024 11:59:13 07/06/2024 09:08:48 Diabetes mellitus 18704607 E11.42 Continue diabetic control per PCP recommenda tions Diabetic p eripheral neuropathy [id number] E11.40 check feet daily for wounds infectionC ontinue supportive shoe gearFollow -up in 3 months for diabetic foot care Dystrophia unguium 97151 009 L60.3 Nails were cut without incidentFo llow-up as needed Health Concerns Section Related Observation LastModified by Organization Detai ls LastModified Time None Recorded Concern Status LastModified by Organization Details LastModified Time None Recorded Advance Directives Directive None Recorded Payers Encounter Date Sequence Insurance Name Policy Number Policy Ortega Covered Member ID Ortega Member ID Guarantor Name 03/26/2023 1 [place] Jasmyn G Moncada [id number] Jasmyn G Moncada 03/26/2023 1 [employer] (MEDICARE SUPPLEMENT) Jasmyn G Moncada [id number] Jasmyn G Moncada 06/25/2023 1 [place] Jasmyn G Moncada [id number] Jasmyn G Moncada 06/25/2023 1 [employer] (MEDICARE SUPPLEMENT) Jasmyn G Moncada [id number] Jasmyn G Moncada 12/24/2023 1 [employer] (MEDICARE REPLACEMENT/A DVANTAGE - HMO) [id number] Jasmyn G Moncada [id number] Jasmyn G Moncada 03/24/2024 1 [employer] (MEDICARE REPLACEMENT/A DVANTAGE - HMO) [id number] Jasmyn G Moncada [id number] Jasmyn G Moncada 06/23/2024 1 [facility] (MEDICARE REPLACEMENT/A DVANTAGE - HMO) [id number] Jasmyn G Moncada [id number] Jasmyn G Moncada Notes Date Note Type Note Provider Name and Address Organization Details Recorded Time 03/26/2023 text/html . Patient is 77-year-old female diabetic who returns the office for follow-up on diabetic foot care. Patient states overall she is doing well. Patient states her nails are long would like to have them cut. Patient denies any recent wounds or injury to the foot. Patient states her skin does get a little dry at the distal tips of her toes but denies any other complaints. Patient denies any intermittent claudication with walking or rest pain. Cleveland Lagunas DPM [address], [place], [address], [employer] 03/26/2023 16:25:05 06/25/2023 text/html . Patient is 77-year-old female who returns the office for toe pain secondary to elongated nails. Patient denies any signs of infection to the toes. Patient denies any other complaints. Cleveland Lagunas DPM [address], [place], [address], [employer] 06/25/2023 11:38:46 12/24/2023 text/html . Patient is a [age] old female who returns the office for follow-up on routine nail care. Patient states she is painful toenails she denies any redness or drainage. Patient denies any other complaints. Cleveland Lagunas DPM [address], [place], [address], [employer] 12/24/2023 12:56:30 03/24/2024 text/html . Patient is a [age] year old female who returns the office for diabetic foot care she states overall she is doing well she has bilateral bunions she denies any pain to the joint or signs of infection or wounds. Patient states that her nails are long and she would like to have them cut as it is difficult for her to cut her toenails. Patient continues have numbness and tingling of her feet secondary to neuropathy she denies any worsening of the symptoms. Patient denies any other complaints. Cleveland Lagunas DPM [address], [place], [address], [employer] 03/24/2024 14:03:18 06/23/2024 text/html . Patient is a 78-year-old female she returns to the office for diabetic foot care she states overall she is doing well denies any new complaints she has elongated nails she can not cut them and would like to have cut. Cleveland Lagunas, DPM [address] [facility] [facility] [address], [place], [address], [facility] 06/23/2024 12:25:23 OBGyn Episode No OBEpisode recorded.
--- OUTSIDE RECORDS SUMMARY | 2024-10-20 14:59 | XMS_ITS | Continuity of Care Document ---
Author Organization [facility] Address [address] [place] [address] Phone Care Team Providers Care Psychosocial Rehabilitation Counselor Name Role Phone Chavez OD, Ruperto Unavailable Unavailable Advance Directives Directive Yes / No Effective Date File Name No Information Encounters Encounter Description Practice Location Reason(s) For Visit Diagnoses Date Provider Providers Copied on Encounter [facility], [address], [place], [place], [id number], [place] tel:[phone] [facility] No Information Nov-0 8-200 1 Chavez OD Ruperto. [address] , [address], [place], [address], [place]. tel:[phone] Family History Family Member Type Diagnosis Age At Onset No Information Payers Payer name Insurance type Covered constitution party ID Authoriza tion(s) No Information Social [...]
--- OUTSIDE RECORDS SUMMARY | 2024-10-20 14:59 | XMS_ITS | Clinical Summary ---
Author Organization [facility] Address [address] [place] [address] Care Team Providers Care Site Controller Name Role Phone Jaya Mattson MD Primary Care Provider [phone] Source Comments [facility],non-owned Affiliates and Associated Physician Practices is amultiple site organization consisting of ambulatory clinics and hospital sitesin [place], [place], [place] and [place]. This disclosure is being madepursuant to the Care Everywhere program and may not contain all information available regarding this patient. Last updated 18.[facility] Allergies Active Allergy Reactions Criticality Noted Date Comments Codeine Unknown 10/28/2018 Immunizations Immunization Administration Dates Next Due MMR 10/28/2018 Social History Tobacco Use Types Packs/Day Years Used Date Smoking Tobacco: Never Assessed Comments Unknown Sex and Gender Information Value Date Recorded Sex Assigned at Not on file Legal Sex Female 8:59 AM CDT Gender Identity Not on file Sexual Orientation Not on file Plan of Treatment Health Maintenance Due Date Last Done Comments BONE DENSITY TESTING 1945 MEDICARE AWV 12 MONTHS 1945 HEPATITIS C SCREENING 08/15/1964 DTAP/TDAP/TD VACCINES (1 - Tdap) 1965 PNEUMOCOCCAL VACCINE 50+ (1 of 1 - PCV) 1996 ZOSTER VACCINE (1 of 2) 1996 Respiratory Syncytial Virus (RSV) Vaccine Pt: or over 60 yrs (1 - 1-dose 75+ series) 2021 COVID-19 VACCINE ( - 2023-2 5 season) 2024 DEPRESSION SCREENING 07/08/2024 INFLUENZA VACCINE (Season Ended) 2025 HEPATITIS B VACCINE Aged Out No longe r eligible based on patient's age to complete this topic HIB VACCINE Aged Out No longer eligi ble based on patient's age to complete this topic HPV VACCINE Aged Out No longer eligi ble based on patient's age to complete this topic MENINGOCOCCAL (Group B) VACC INE SHARED DECISION-MAKING Aged Out No longer eligibl e based on patient's age to complete this topic MENINGOCOCCAL GROUPS A/C/Y/W VACCINE Aged Out No longer eligible b ased on patient's age to complete this topic Insurance COMMERCIAL GENERIC MEDICARE MEDICARE AETNA Care Teams Site Controller Relationship Specialty Start Date End Date Jaya Mattson MD [address] [facility] [address] [facility] [address] [place] [phone] PCP - General 08/01/20
--- OUTSIDE RECORDS SUMMARY | 2024-10-20 14:59 | XMS_ITS ---
Author Organization [facility] Address [address] [facility] [address] [place] [address] Care Team Providers Care Bulb Grower Name Role Phone zzzzMigration, zzzzProvider Unavailable Unav ailable REASON FOR VISIT EMR-Shon Encounters Encounter Location Date Provider Diagnosis [facility] [address] [facility] [address] [place] [address] 04/28/2023 zzzzProvider zzzzMigration Plan Of Treatment No Information Progress Notes * ABIODUN Jasmyn GDOB: 7 (79 yo F)Acc No.[id number]:04/28/2023 Patient: Jasmyn ESPANA :1945 A ge:77 Y S ex:Female Address:[address] [place] [address] Subjective: * Chief Complaints: * E MR-Shon * Medical History: * Surgical History: * Hospitalization/Major Diagno stic Procedure: * Medications: Objective: * Vitals: * Physical Examination: Assessment: Plan: * Treatment: * Procedure Codes: * true * Date: Generated for Printi ng/Faxing/eTransmitting on: 0 10/20/2024 02:58 PM CDT
--- OUTSIDE RECORDS SUMMARY | 2024-10-20 14:59 | XMS_ITS | CONTINUITY OF CARE DOCUMENT ---
Author Name molly barnes Address Unknown Organization [facility] Address [address] [facility] [address] [place] [address] Phone [phone] Care Team Providers Care Roll Changer Name Role Phone [place] NARVAEZ, Russell Unavailable TUNG NARVAEZ, DARCI Unavailable ASHLEY NARVAEZ, DESMOND Unavailable INSURANCE PROVIDERS Payer name Policy type / Coverage type Viktoria red libertarian ID AETNA SENIOR SUPPLEMENTAL INS Commercial insuran ce company [id number] [place] MEDICARE Medicare [id number]
--- OUTSIDE RECORDS SUMMARY | 2024-10-20 15:00 | XMS_ITS ---
Author Organization [facility] Address [address] [facility] [address] [place] [address] Care Team Providers Care Tufting Supervisor Name Role Phone zzzzMigration, zzzzProvider Unavailable Unav ailable REASON FOR VISIT EMR-Shno Encounters Encounter Location Date Provider Diagnosis [facility] [address] [facility] [address] [place] [address] 04/27/2023 zzzzProvider zzzzMigration Plan Of Treatment No Information Progress Notes * ABIODUN Jasmyn GDOB: 7 (79 yo F)Acc No.[id number]:04/27/2023 Patient: Jasmyn ESPANA :1945 A ge:77 Y S ex:Female Address:[address] [place] [address] Subjective: * Chief Complaints: * E MR-Shon * Medical History: * Surgical History: * Hospitalization/Major Diagno stic Procedure: * Medications: Objective: * Vitals: * Physical Examination: Assessment: Plan: * Treatment: * Procedure Codes: * true * Date: Generated for Printi ng/Faxing/eTransmitting on: 0 10/20/2024 02:59 PM CDT
== END 2024-10-20 13:51 | disposition home or self-care (01) ==
PROVIDERS: PCP Nurse Practitioner; Visit Provider Nurse Practitioner Family
DX: M16.11 Unilateral primary osteoarthritis, right hip (principal)
CPT/HCPCS: 20610; 77002; J1010; Q9966

== ENCOUNTER 2024-11-30 20:14 | Emergency (ER) | payer MEDICARE, SELFPAY ==
--- OUTSIDE RECORDS SUMMARY | 2024-11-30 20:16 | XMS_ITS | Clinical Summary ---
Author Organization [facility] Address [address] [place] [address] Care Team Providers Care Room Service Waiter Name Role Phone Jaya Mattson MD Primary Care Provider [phone] Source Comments [facility],non-owned Affiliates and Associated Physician Practices is amultiple site organization consisting of ambulatory clinics and hospital sitesin [place], [place], [place] and [place]. This disclosure is being madepursuant to the Care Everywhere program and may not contain all information available regarding this patient. Last updated 18.[facility] Allergies Active Allergy Reactions Criticality Noted Date [...] Last Done Comments BONE DENSITY TESTING 1945 HEPATITIS C SCREENING 08/15/1964 DTAP/TDAP/TD VACCINES [...] complete this topic Insurance COMMERCIAL GENERIC MEDICARE Member Subscriber Plan / Payer (Ef fective 2010-Present) Name:Rascon Jasmyn Nikole Member ID:[id number] Relation to Subscriber:Self Name:Jasmyn Rascon Nikole Subscriber ID:[id number] Payer ID:Not on file Group ID:Not on file Type:Medicare Address: [place] [id number] MEDICARE AETNA Care Teams Room Service Waiter Relationship Specialty Start Date End Date Jaya Mattson MD [address] [place] [address] PCP - General 08/01/20
--- OUTSIDE RECORDS SUMMARY | 2024-11-30 20:16 | XMS_ITS | Data Portability ---
Author Organization [place] - [facility] [employer], Main Office Address [address] [place] [address] Care Team Providers Care Bus Aide Name Role Phone RIGOBERTO TUCKER Primary Care Provider Assessment Encounter Date Assessment Date Assessment LastModified by Organization Details LastModified Time 12/24/2023 12/24/2023 This note is dictated and transcribed by [employer]. Bender Machine Operator variances may occur. Despite proofreading, typographical errors may occur. Occasional wrong-word or 'ekyeo-q-inyk' substitutions may have occurred due to the inherent limitations of voice recording. Read the chart carefully and recognize, using context, where substitutions have occurred. Not available 12/24/2023 12:54:50 03/24/2024 03/24/2024 This note is dictated and transcribed by [employer]. Bender Machine Operator variances may occur. Despite proofreading, typographical errors may occur. Occasional wrong-word or 'rsojj-o-bqjg' substitutions may have occurred due to the inherent limitations of voice recording. Read the chart carefully and recognize, using context, where substitutions have occurred. Not available 03/24/2024 14:02:43 06/23/2024 06/23/2024 This note is dictated and transcribed by [employer]. Bender Machine Operator variances may occur. Despite proofreading, typographical errors may occur. Occasional wrong-word or 'xtsby-x-svxt' substitutions may have occurred due to the inherent limitations of voice recording. Read the chart carefully and recognize, using context, where substitutions have occurred. Not available 06/23/2024 12:25:04 11/03/2024 11/03/2024 This note is dictated and transcribed by [employer]. Bender Machine Operator variances may occur. Despite proofreading, typographical errors may occur. Occasional wrong-word or 'hwdio-r-olfy' substitutions may have occurred due to the inherent limitations of voice recording. Read the chart carefully and recognize, using context, where substitutions have occurred. Not available 11/03/2024 11:10:52 Plan of Treatment Reminders Order Date Submit Date Provider Last Modified By Organization Details Last Modified Time Details Appointments Establish ed Patient 15 2024 10:00A M Cleveland Lagunas DPM Not available Not available Not available Lab None recorded. Referral None recorded. Procedures None recorded. Surgeries None recorded. Imaging None recorded. Medication Orders None recorded. Patient TargetsNo targets recorded. Patient InstructionsNo instructions recorded. Reason for Referral None Reported. Problems Name Problem SNOMED Code Status Onset Date Resolution Date Notes Provider Name and Address Organization Details Recorded Time Tendinitis of right shoulder 5248080771986 101 Active 2019 Not Available [facility] 3 02:50:48 Disorder of shoulder 488723023 Active Not Available [facility] 3 02:50:48 Open wound of toe 861031170 Active 2021 Not Available [facility] 3 02:50:48 Disorder of sacrum 52496791 Active Not Available [facility] 3 02:50:48 Asthma 435825395 Active 2017 Not Available [facility] 3 02:50:48 Localized, primary osteoarthr itis of the shoulder region 185350688 Active Not Available [facility] 3 02:50:49 Partial thickness rotator cuff tear 061151089 Active Not Available [facility] 3 02:50:49 Full thickness rotator cuff tear 753245383 Active 2018 Not Available [facility] 3 02:50:49 Ankle pain 007718468 Active 2020 Not Available [facility] 3 02:50:49 Shoulder joint pain 699409595 Active Not Available [facility] 3 02:50:49 Anemia 747139626 Active 2017 Not Available [facility] 3 02:50:49 Low back pain 078416623 Active Not Available [facility] 3 02:50:49 Unable to cut own toenails 372971406 Active 2020 Not Available [facility] 3 02:50:49 Adnexal tenderness 992444550 Active Not Available [facility] 3 02:50:49 Back problem 824152537 Active Not Available [facility] 3 02:50:49 Enthesopat hy of hip region 07157558 Active Not Available [facility] 3 02:50:49 Pain of left hip joint 6055499985021 00 Active 2021 Not Available [facility] 3 02:50:49 Bronchitis 83196407 Active 2017 Not Available [facility] 3 02:50:50 Arthritis 2410555 Active 2017 Not Available [facility] 3 02:50:50 Osteoarthr osis of the carpometac arpal joint of the thumb 78431877 Active 2018 Not Available [facility] 3 02:50:50 Hypertensi ve disorder 43236872 Active 2017 Not Available [facility] 3 02:50:50 Osteoarthr itis 906939112 Active 2017 Not Available [facility] 3 02:50:50 Bunion 946601334 Active 2017 Not Available [facility] 3 02:50:50 Diabetic peripheral neuropathy 609226408 Active 2017 Not Available [facility] 3 02:50:50 Lumbosacra l spondylosi s without myelopathy 99002365 Active Not Available [facility] 3 02:50:50 Brachial neuritis 56804572 Active Not Available [facility] 3 02:50:50 Diabetes mellitus 50195847 Active 2017 Not Available [facility] 3 02:50:50 Degenerati on of interverte bral disc 82055409 Active Not Available [facility] 3 02:50:50 Cyst of ovary 40942227 Active Not Available [facility] 3 02:50:51 Spinal stenosis in cervical region 88939786 Active Not Available [facility] 3 02:50:51 Dystrophia unguium 54125805 Active 2017 Not Available [facility] 3 02:50:51 Bunion 056269524 Active 2022 Cleveland Lagunas DPM [address], [place], [address] , [facility] 3 12:17:11 Pain in toe 392453275 Active 2022 Cleveland Lagunas DPM [address], [place], [address] , [employer] [facility] 3 11:38:24 Notes:back problems, ear pro blems, lung disorder - COPD, thyroid disease Problem Notes None recorded. Procedures Surgical History Date Name Laterality Status Provider Name and Address Organization Details Recorded Time 11/04/19 25 Nail Debridement completed Cleveland Lagunas DPM [address], [place], [address], [employer] [facility] 11/03/2024 11:09:20 06/23/20 24 Nail Debridement completed Cleveland Lagunas DPM [address], [place], [address], [employer] [facility] 06/23/2024 12:24:57 03/24/20 24 Nail Debridement completed Cleveland Lagunas DPM [address], [place], [address], [employer] 03/24/2024 14:02:08 12/24/19 24 Nail Debridement completed [address], [place], [address], [employer] [facility] 12/24/2023 12:55:36 06/25/20 23 Nail Debridement completed Cleveland Lagunas DPM [address], [place], [address], [employer] [facility] 06/25/2023 11:38:10 03/26/20 23 Nail Debridement completed Cleveland Lagunas DPM [address], [place], [address], [facility] [facility] 03/26/2023 16:22:50 12/21/19 23 Nail Debridement completed Cleveland Lagunas DPM [address], [place], [address], [facility] [employer] [facility] 12/20/2022 12:53:51 09/21/19 23 Nail Debridement completed Cleveland Lagunas DPM [address], [place], [address], [facility] 09/20/2022 12:14:54 Remove tonsils and adenoids completed Not Available [facility] 09/05/2022 02:44:52 procedure on gallbladder completed Not Available [facility] 09/05/2022 02:44:52 Appendectomy completed Not Available [facility] 09/05/2022 02:44:52 Rotator cuff surgery completed Not Available [facility] 09/05/2022 02:44:52 Hysterectomy completed Not Available [facility] 09/05/2022 02:44:52 Imaging Results None recorded. Procedure Notes None recorded. Medical Equipment None Reported. Allergies Allergen ID Allergen Name Allergen Category Reaction Reaction Severity Criticality Documentation Date Start Date Code Code System Note Provider Name and Address Organization Details Recorded Time 4466 codeine medicatio n Not available Not available Not available 09/05/2022 2670 RxNorm Not Available [facility] 02:58:12 Medications Name Sig Start Date [...] injection administe red by the provider active [facility]: 0003- 0494- 20 Not Available Not Available [...] injection administe red by the provider active [facility]: 0409- 4276- 17 Not Available Not Available [...] Relief 50 mcg/actuati on nasal spray,suspe nsion [place] 1 spray every day by intranasa l route. 01/10 completed Not Available Not Available Not Available Flonase Allergy Relief 2018 active Not Available Not Available Not Avai lable Pazeo 0.7 % eye drops INT 1 GTT IN OU QD PRN active Not Available Not Available No t Available Fluzone High-Dose 2014- (PF) 180 mcg/0.5 mL intramuscul ar syringe [...] Not Available No t Available Fluzone High-Dose 5599-8692 (PF) 180 mcg/0.5 mL intramuscul ar syringe [...] Not Available Vitals Date Recorded Body height Body mass index (BMI) Body weight Heart rate Respiratory rate Oxygen saturation Oxygen saturation in Arterial blood by Pulse oximetry Provider Name and Address Organization Details Last Updated DateTime 5 149.86 cm 28.3 kg/m2 84864.9 3 g 76 /min 14 /min 98 % 98 % Rose Buchanan [place] 5 10:15:47 Date Recorded Body height Heart rate Respiratory rate Oxygen saturation Oxygen saturation in Arterial blood by Pulse oximetry Systolic And Diastolic Provider Name and Address Organization Details Last Updated DateTime 4 149.86 cm 95 /min 14 /min 98 % 98 % 132/71 mm[Hg] Rose Buchanan [place] 4 11:02:17 Date Recorded Body height Body mass index (BMI) Body weight Heart rate Respiratory rate Body temperature Oxygen saturation Oxygen saturation in Arterial blood by Pulse oximetry Systolic And Diastolic Provider Name and Address Organization Details Last Updated DateTime 4 149.86 cm 28.3 kg/m2 52531.9 3 g 88 /min 14 /min 97.6 [degF] 98 % 98 % 130/70 mm[Hg] Sweta Mckeon [place] 4 12:34:18 Date Recorded Body height Body mass index (BMI) Body weight Heart rate Respiratory rate Oxygen saturation Oxygen saturation in Arterial blood by Pulse oximetry Systolic And Diastolic Provider Name and Address Organization Details Last Updated DateTime 4 149.86 cm 28.3 kg/m2 91897.9 3 g 82 /min 14 /min 98 % 98 % 130/65 mm[Hg] Rose Buchanan [place] 4 12:03:36 Date Recorded Body height Heart rate Respiratory rate Oxygen saturation Oxygen saturation in Arterial blood by Pulse oximetry Systolic And Diastolic Provider Name and Address Organization Details Last Updated DateTime 3 149.86 cm 95 /min 14 /min 98 % 98 % 133/78 mm[Hg] Rose Buchanan [place] - [facility] 3 11:15:10 Social History Question Answer Notes LastModified by Tilson Details LastModified Time Tobacco Smoking Status Former Smoker Not Available [facility] 09/05/2022 02:42:10 When Did You Quit Smoking? 17+yearssinc elastcigaret te [id number] Information not available 09/05/2022 Sex: Unknown Functional Status Question Answer Note LastModified by Tilson Details LastModified Time What is your level of alcohol consumption? None [id number] Information not available 09/05/2022 Mental Status None recorded. Family History Relationship Description Onset Age of this Age Resolved Age Notes LastModified by Organization Details LastModified Time Unspecified Relation Family history of stroke grands on [id number] Not available 09/05/2022 02:44:57 Father Family history of malignant neoplasm [id number] Not available 09/05/2022 02:44:57 Mother Hypertensive disorder [id number] Not available 09/05/2022 02:44:57 Mother Diabetes mellitus [id number] Not available 09/05/2022 02:44:57 Notes:father - lung cancer STROKE Medical History Condition Response BLINDNESS N KIDNEY STONES N CARPAL TUNNEL SYNDROME N MRSA N LUNG DISEASE/DISORDER Y HISTORY OF DRUG ABUSE N RADIATION / CHEMOTHERAPY N COPD Y ANKLE PAIN N SPORTS INJURY N BLOOD DISEASES N SCHIZOPHRENIA N BOWEL PROBLEMS N DEPRESSION (INCLUDING POST ) N SHOULDER PAIN N STROKE/TIA N ULCERS N KNEE PAIN N BENIGN PROSTATIC HYPERPLASIA N OBESITY N GERD/NAUSEA N ANEURYSM N URINARY/BLADDER/KIDNEY PROBLEMS N CORONARY ARTERY DISEASE (CAD) N ADDICTION CONCERNS N USE OF BLOOD THINNERS N SKIN PROBLEMS N EMPHYSEMA N MUSCLE,JOINT OR BONE PROBLEMS N DVT N STOMACH ULCERS N BLOOD CLOTS N USE OF NSAIDS N CONCUSSION OR SPINAL TRAUMA N NEUROPATHY N AIDS/HIV N FRACTURES N HYPERTENSION Y ELBOW PAIN N TOURETTE'S N Metal allergy N ANXIETY DISORDER N BLOOD TRANSFUSION N ANEMIA/BLOOD DISORDER Y BIPOLAR DISORDER N BRONCHITIS N OSTEOARTHRITIS Y TUBERCULOSIS N FOOT PROBLEM N HEART VALVE DISORDERS N ALLERGIES/HAYFEVER N SOFT TISSUE INJURY N INFECTIOUS DISEASE N HEART ARRHYTHMIA N INSOMNIA N HIGH CHOLESTEROL / HYPERLIPIDEMIA N RHEUMATOID ARTHRITIS N EDEMA N CHRONIC PAIN SYNDROME N CAROTID BLOCKAGE N BACK / NECK PROBLEMS N HAVE YOU BEEN HOSPITALIZED OR SEEN IN [facility] IN THE PAST YEAR ? N BURSITIS N HERNIATED DISC N DIALYSIS N FIBROMYALGIA N OSTEOPOROSIS N ARTHRITIS Y NO SIGNIFICANT PAST MEDICAL HISTORY N PERIPHERAL NEUROPATHY N DIABETES, TYPE Y HEARTBURN / REFLUX N HEPATITIS / LIVER DISEASE N GOUT N ALZHEIMER'S DISEASE N SLEEP DISORDER N HERPES N HEADACHES/MIGRAINES N SEIZURES/EPILEPSY N VASCULAR DISEASE N Blood Disorder N HIP PAIN N DIZZINESS N HEAD TRAUMA OR INJURY [...] SNOMED-CT Code Diagnosis ICD10 Code Diagnosis Note [id number] Cleveland Lagunas DPM [facility] [address] [place] [address] 09/20/2020 00:00:00 09/20/2020 10:00:27 [id number] Cleveland Lagunas DPM [facility] [place] [address] [place] [address] 0 12/20/2020 00:00:00 12/20/2020 10:00:36 [id number] JADEN Dobson [facility] [address] [address] 01/10/2021 00:00:00 01/10/2021 10:04:32 [id number] Lexx Johnston MD [facility] [address] [address] 02/07/2021 00:00:00 02/07/2021 10:22:28 [id number] Cleveland Lagunas DPM [facility] [address] [address] 03/20/2021 00:00:00 03/20/2021 11:49:35 [id number] Cleveland Lagunas DPM [facility] [place] [address] [place] [address] 0 06/19/2021 00:00:00 06/19/2021 09:46:49 [id number] Cleveland Lagunas DPM [facility] [place] [address] [place] [address] 0 09/18/2021 00:00:00 09/18/2021 09:55:25 [id number] Cleveland Lagunas DPM [facility] [address] [address] 12/18/2021 00:00:00 12/18/2021 10:09:15 [id number] Cleveland Lagunas DPM [facility] [address] [address] 0 03/29/2022 00:00:00 03/29/2022 11:05:11 [id number] Lexx Johnston MD [facility] [address] [address] 04/10/2022 00:00:00 04/10/2022 11:19:45 [id number] Cleveland Lagunas DPM [facility] [address] [address] 06/21/2022 00:00:00 06/21/2022 10:40:26 [id number] Cleveland Lagunas DPM [facility] [place] [address] [place] [address] 09/20/2022 11:37:58 09/20/2022 14:05:41 Diabetic peripheral neuropathy 618521828 E11.40 Patient educated on neuropathy , diabetes, diabetic diet, and daily foot exams. Patient is to check feet daily for new wounds, blisters, redness to prevent infection and ulceration s to the feet. Patient will return to clinic in 3 months for diabetic foot workup. Dystrophia unguium 15502 009 L60.3 Nails 1 through 10 were debrided with sharp mechanical debridemen t without incident. Nails were debrided and greater than 50% length and thickness where needed. Unable to cut own toenails 009710876 Z74.1 Bunion 842722068 M21.61 1 M21.612 offloading to prevent wounds infection dailyConti nue supportive shoe- wide soft toe box shoes [id number] Cleveland Lagunas DPM [facility] [place] [address] [address] 12/20/2022 12:40:20 12/20/2022 13:58:46 Diabetic peripheral neuropathy 169587973 E11.40 continue diabetic control per PCP Dystrophia unguium 55998 009 L60.3 Nails were cut without incidentFo llow-up as needed Unable to cut own toenails 198891893 Z74.1 [id number] [facility] [place] [address] [address] 03/26/2023 16:07:22 03/26/2023 16:37:14 Diabetic peripheral neuropathy 990560078 E11.40 continue diabetic control per PCPcheck feet daily for wounds infectionC ontinue supportive shoe gearFollow -up in 3 months for diabetic foot care Dystrophia unguium 73024 009 L60.3 Nails were cut without incidentFo llow-up as needed [id number] Cleveland [facility]as [facility] [place] [address] [address] 06/25/2023 10:49:47 06/26/2023 11:43:46 Dystrophia unguium 09952921 L60.3 Nails were cut without incidentFo llow-up as needed Pain in toe 313845054 M7 9.674 M79.675 secondary to nails [id number] [facility] [place] [address] [address] 12/24/2023 10:55:49 12/24/2023 15:50:07 Dystrophia unguium 16943625 L60.3 Nails were cut without incidentFo llow-up as needed Pain in toe 888475881 M7 9.674 M79.675 secondary to nails [id number] Cleveland Lagunas DPM [facility] [place] [address] [place] [address] 0 03/24/2024 12:29:30 03/25/2024 15:35:41 Diabetes mellitus 33408720 E11.42 Continue diabetic control per PCP recommenda tions Diabetic p eripheral neuropathy 671577615 E11.40 check feet daily for wounds infectionC ontinue supportive shoe gearFollow -up in 3 months for diabetic foot care Dystrophia unguium 61418 009 L60.3 Nails were cut without incidentFo llow-up as needed [id number] Cleveland Lagunas DPM [facility] [place] [address] [place] [phone] 0 06/23/2024 11:59:13 07/06/2024 09:08:48 Diabetes mellitus 69972305 E11.42 Continue diabetic control per PCP recommenda tions Diabetic p eripheral neuropathy 691287594 E11.40 check feet daily for wounds infectionC ontinue supportive shoe gearFollow -up in 3 months for diabetic foot care Dystrophia unguium 74494 009 L60.3 Nails were cut without incidentFo llow-up as needed [id number] Cleveland Lagunas DPM [facility] [place] [address] [place] [address] 11/03/2024 10:03:11 11/04/2024 16:08:07 Diabetes mellitus 75386664 E11.42 Continue diabetic control per PCP recommenda tions Dystrophia unguium 94965 009 L60.3 Nails were cut without incidentFo llow-up as needed Diabetic p eripheral neuropathy 981834358 E11.40 check feet daily for wounds infectionC ontinue supportive shoe gearFollow -up in 3 months for diabetic foot care Health Concerns Section Related Observation LastModified by Organization Detai ls LastModified Time None Recorded Concern Status LastModified by Organization Details LastModified Time None Recorded Advance Directives Directive None Recorded Payers Encounter Date Sequence Insurance Name Policy Number Policy Ortega Covered Member ID Ortega Member ID Guarantor Name 06/25/2023 1 [place] Jasmyn Moncada [id number] Jasmyn Agustin Moncada 06/25/2023 1 [employer] (MEDICARE SUPPLEMENT) Jasmyn Moncada [id number] Jasmyn Agustin Moncada 12/24/2023 1 [facility] (MEDICARE REPLACEMENT/A DVANTAGE - HMO) [id number] Jasmyn G Moncada [id number] Jasmyn G Moncada 03/24/2024 1 [facility] (MEDICARE REPLACEMENT/A DVANTAGE - HMO) [id number] Jasmyn G Moncada [id number] Jasmyn G Moncada 06/23/2024 1 [facility] (MEDICARE REPLACEMENT/A DVANTAGE - HMO) [id number] Jasmyn G Moncada [id number] Jasmyn Agustin Moncada 11/03/2024 1 [facility] (MEDICARE REPLACEMENT/A DVANTAGE - HMO) [id number] Jasmyn G Moncada [id number] Jasmyn Agustin Moncada Notes Date Note Type Note Provider Name and Address Organization Details Recorded Time 06/25/2023 text/html . Patient is 77-year-old female who returns the office for toe pain secondary to elongated nails. Patient denies any signs of infection to the toes. Patient denies any other complaints. Cleveland Lagunas DPM [address], [place], [address], [facility] 06/25/2023 11:38:46 12/24/2023 text/html . Patient is a [age] old female who returns the office for follow-up on routine nail care. Patient states she is painful toenails she denies any redness or drainage. Patient denies any other complaints. Cleveland Lagunas DPM [address], [place], [address], [facility] 12/24/2023 12:56:30 03/24/2024 text/html . Patient is [...] denies any other complaints. Cleveland Lagunas DPM [address], [place], [address], [employer] 03/24/2024 14:03:18 06/23/2024 text/html . Patient is a 78-year-old female she returns to the office for diabetic foot care she states overall she is doing well denies any new complaints she has elongated nails she can not cut them and would like to have cut. Cleveland Lagunas DPM [address], [place], [address], [employer] 06/23/2024 12:25:23 11/03/2024 text/html . Patient is a 79-year-old female diabetic she presents for diabetic foot care she states overall she is doing well she denies any open wounds or injury of the foot. Patient states she would like her nails cut and denies any other complaints with her feet. Cleveland Lagunas DPM [address], [place], [address], [employer] 11/03/2024 11:17:24 OBGyn Episode No OBEpisode recorded.
--- OUTSIDE RECORDS SUMMARY | 2024-11-30 20:16 | XMS_ITS | CONTINUITY OF CARE DOCUMENT ---
Author Name molly barnes Address Unknown Organization [facility] Address [address] [place] [address] Phone [phone] Care Team Providers Care Web Content Director Name Role Phone [place] NARVAEZ, Russell Unavailable [phone] TUNG NARVAEZ, DARCI Unavailable [phone] ASHLEY NARVAEZ, DESMOND Unavailable INSURANCE PROVIDERS Payer name Policy type / Coverage type Viktoria red alliance party ID [employer] Commercial insuran ce company [id number] [place] [employer] Medicare [id number]
--- OUTSIDE RECORDS SUMMARY | 2024-11-30 20:16 | XMS_ITS | Continuity of Care Document ---
Author Organization [facility] Address [address] [place] [address] Phone Care Team Providers Care Radiology Teacher Name Role Phone Chavez OD, Ruperto Unavailable Unavailable Advance Directives Directive Yes / No Effective Date File Name No Information Encounters Encounter Description Practice Location Reason(s) For Visit Diagnoses Date Provider Providers Copied on Encounter [facility], [address], [place], [place], [id number], [place] tel:[phone] [facility] No Information Nov-0 8-200 1 Chavez OD Ruperto. [address] , [address], [place], [address], [place]. tel:[phone] Family History Family Member Type Diagnosis Age At Onset No Information Payers Payer name Insurance type Covered republican ID Authoriza tion(s) No Information Social History [...]
[2024-11-30 20:18] VITALS: BP 148/64; PULSE 72; RESP 20; TEMP 35.9; O2SAT 98
--- NOTE | 2024-11-30 20:23 | ECG_ITS ---
Test Date: 2024-11-30 20:27:35 Measurements Intervals [place] Rate: 74 P: 54 TX: 222 QRS: 11 QRSD: 99 T: 46 QT: 400 QTc: 445 Interpretive Statements SINUS RHYTHM WITH FIRST DEGREE AV BLOCK Compared to ECG 01/04/2024 21:40:53 First degree AV block now present Electronically Signed On 11-30-2024 20:38:10 CDT by Kaz Chin M.D.
[2024-11-30 20:39] LABS: Glucose Point of Care 141 mg/dl (65-105)
--- OUTSIDE RECORDS SUMMARY | 2024-11-30 21:45 | XMS_ITS | Continuity of Care Document ---
Author Organization [facility] Address [address] [place] [address] Phone Care Team Providers Care Hat Renovator Name Role Phone Chavez OD, Ruperto Unavailable Unavailable Advance Directives Directive Yes / No Effective Date File Name No Information Encounters Encounter Description Practice Location Reason(s) For Visit Diagnoses Date Provider Providers Copied on Encounter [facility], [address], [place], [place], [id number], [place] tel:[phone] [facility] No Information Nov-0 8-200 1 Chavez OD Ruperto. [address] , [address], [place], [address], [place]. tel:[phone] Family History Family Member Type Diagnosis Age At Onset No Information Payers Payer name Insurance type Covered libertarian ID Authoriza tion(s) No Information Social History [...]
--- OUTSIDE RECORDS SUMMARY | 2024-11-30 21:45 | XMS_ITS | CONTINUITY OF CARE DOCUMENT ---
Author Name molly barnes Address Unknown Organization [facility] Address [address] [place] [address] Phone [phone] Care Team Providers Care Quality Director Name Role Phone [place] NARVAEZ, Russell Unavailable [phone] TUNG NARVAEZ, DARCI Unavailable ASHLEY NARVAEZ, DESMOND Unavailable INSURANCE PROVIDERS Payer name Policy type / Coverage type Viktoria red republican ID AETNA SENIOR SUPPLEMENTAL INS Commercial insuran ce company [id number] [place] Medicare [id number]
--- OUTSIDE RECORDS SUMMARY | 2024-11-30 21:45 | XMS_ITS | Clinical Summary ---
Author Organization [facility] Address [address] [facility] [place] [address] Care Team Providers Care Installer Technician Name Role Phone Jaya Mattson MD Primary Care Provider [phone] Source Comments [facility],non-owned Affiliates and Associated Physician Practices is amultiple site organization consisting of ambulatory clinics and hospital sitesin [place], [place], [place] and [place]. This disclosure is being madepursuant to the Care Everywhere program and may not contain all information available regarding this patient. Last updated 18.[facility] Allergies Active Allergy Reactions Criticality Noted Date [...] (Ef fective 2010-Present) Name:Rascon Jasmyn Nikole Member ID:[id number] Relation to Subscriber:Self Name:Jasmyn Rascon Nikole Subscriber ID:[id number] Payer ID:Not on file Group ID:Not on file Type:Medicare Address: [place] [id number] MEDICARE AETNA Care Teams Installer Technician Relationship Specialty Start Date End Date Jaya Mattson MD [address] [place] [address] PCP - General 08/01/20
== END 2024-11-30 20:30 | disposition left against medical advice (07) ==
LOC: ANHED 21:43
PROVIDERS: Emergency Provider Student in an Organized Health Care Education/Training Program; PCP Nurse Practitioner
DX: R11.2 Nausea with vomiting, unspecified (principal); R53.83 Other fatigue
CPT/HCPCS: 82948; 93005; 99199

== ENCOUNTER 2024-12-04 10:14 | Outpatient (CLI) | payer MEDICARE, SELFPAY ==
--- OUTSIDE RECORDS SUMMARY | 2024-12-04 10:29 | XMS_ITS | Clinical Summary ---
Author Organization [facility] Address [address] [facility] [place] [address] Care Team Providers Care Fitting Room Inspector Name Role Phone Jaya Mattson MD Primary Care Provider [phone] Source Comments [facility],non-owned Affiliates and Associated Physician Practices is amultiple site organization consisting of ambulatory clinics and hospital sitesin [place], [place], [place] and [place]. This disclosure is being madepursuant to the Care Everywhere program and may not contain all information available regarding this patient. Last updated 18.[facility] Allergies Active Allergy Reactions Criticality Noted Date [...] (Ef fective 2010-Present) Name:Rascon Jasmyn Nikole Member ID:[id number] Relation to Subscriber:Self Name:Jasmyn Rascon Nikole Subscriber ID:[id number] Payer ID:Not on file Group ID:Not on file Type:Medicare Address: [place] [phone] MEDICARE AETNA Care Teams Fitting Room Inspector Relationship Specialty Start Date End Date Jaya Mattson MD [address] [place] [address] PCP - General 08/01/20
--- OUTSIDE RECORDS SUMMARY | 2024-12-04 10:29 | XMS_ITS | Data Portability ---
Author Organization [place] [facility], Main Office Address [address] [place] [address] Care Team Providers Care Wall Taper Helper Name Role Phone RIGOBERTO TUCKER Primary Care Provider Assessment Encounter Date Assessment Date Assessment LastModified by Organization Details LastModified Time 12/24/2023 12/24/2023 This note is dictated and transcribed by [employer]. Counter Supervisor variances may occur. Despite proofreading, typographical errors may occur. Occasional wrong-word or 'thfxn-q-iikq' substitutions may have occurred due to the inherent limitations of voice recording. Read the chart carefully and recognize, using context, where substitutions have occurred. Not available 12/24/2023 12:54:50 03/24/2024 03/24/2024 This note is dictated and transcribed by [employer]. Counter Supervisor variances may occur. Despite proofreading, typographical errors may occur. Occasional wrong-word or 'ecgbt-f-mnzg' substitutions may have occurred due to the inherent limitations of voice recording. Read the chart carefully and recognize, using context, where substitutions have occurred. Not available 03/24/2024 14:02:43 06/23/2024 06/23/2024 This note is dictated and transcribed by [employer]. Counter Supervisor variances may occur. Despite proofreading, typographical errors may occur. Occasional wrong-word or 'vkbsb-g-ynhd' substitutions may have occurred due to the inherent limitations of voice recording. Read the chart carefully and recognize, using context, where substitutions have occurred. Not available 06/23/2024 12:25:04 11/03/2024 11/03/2024 This note is dictated and transcribed by [employer]. Counter Supervisor variances may occur. Despite proofreading, typographical errors may occur. Occasional wrong-word or 'gulmx-g-kbbf' substitutions may have occurred due to the [...] Details Recorded Time Tendinitis of right shoulder 2750209825528 101 Active 2019 Not Available [facility] 3 02:50:48 Disorder of shoulder 907420864 Active Not Available [facility] 3 02:50:48 Open wound of toe 295956409 Active 2021 Not Available [facility] 3 02:50:48 Disorder of sacrum 22216555 Active Not Available [facility] 3 02:50:48 Asthma 121493025 Active 2017 Not Available [facility] 3 02:50:48 Localized, primary osteoarthr itis of the shoulder region 266164329 Active Not Available [facility] 3 02:50:49 Partial thickness rotator cuff tear 478319436 Active Not Available [facility] 3 02:50:49 Full thickness rotator cuff tear 931491580 Active 2018 Not Available [facility] 3 02:50:49 Ankle pain 812437326 Active 2020 Not Available [facility] 3 02:50:49 Shoulder joint pain 492849830 Active Not Available [facility] 3 02:50:49 Anemia 549283258 Active 2017 Not Available [facility] 3 02:50:49 Low back pain 276440317 Active Not Available [facility] 3 02:50:49 Unable to cut own toenails 519398394 Active 2020 Not Available [facility] 3 02:50:49 Adnexal tenderness 301160556 Active Not Available [facility] 3 02:50:49 Back problem 902194166 Active Not Available [facility] 3 02:50:49 Enthesopat hy of hip region 43467138 Active Not Available [facility] 3 02:50:49 Pain of left hip joint 2455677510673 00 Active 2021 Not Available [facility] 3 02:50:49 Bronchitis 13132676 Active 2017 Not Available [facility] 3 02:50:50 Arthritis 2466762 Active 2017 Not Available [facility] 3 02:50:50 Osteoarthr osis of the carpometac arpal joint of the thumb 22718482 Active 2018 Not Available [facility] 3 02:50:50 Hypertensi ve disorder 09543577 Active 2017 Not Available [facility] 3 02:50:50 Osteoarthr itis 499029603 Active 2017 Not Available [facility] 3 02:50:50 Bunion 176537683 Active 2017 Not Available [facility] 3 02:50:50 Diabetic peripheral neuropathy 900179545 Active 2017 Not Available [facility] 3 02:50:50 Lumbosacra l spondylosi s without myelopathy 32148628 Active Not Available [facility] 3 02:50:50 Brachial neuritis 06768577 Active Not Available [facility] 3 02:50:50 Diabetes mellitus 70609313 Active 2017 Not Available [facility] 3 02:50:50 Degenerati on of interverte bral disc 52612077 Active Not Available [facility] 3 02:50:50 Cyst of ovary 86690647 Active Not Available [facility] 3 02:50:51 Spinal stenosis in cervical region 21559573 Active Not Available [facility] 3 02:50:51 Dystrophia unguium 49505506 Active 2017 Not Available [facility] 3 02:50:51 Bunion 744680114 Active 2022 Cleveland Lagunas DPM [address], [place], [address] , [facility] 3 12:17:11 Pain in toe 088497018 Active 2022 Cleveland Lagunas DPM [address], [place], [address] , [facility] 3 11:38:24 Notes:back problems, ear pro blems, lung disorder - COPD, thyroid disease Problem Notes None recorded. Procedures Surgical History Date Name Laterality Status Provider Name and Address Organization Details Recorded Time 11/04/19 25 Nail Debridement completed Cleveland Lagunas DPM [address], [place], [address], [facility] 11/03/2024 11:09:20 06/23/20 24 Nail Debridement completed Cleveland Lagunas DPM [address], [place], [address], [employer] [employer] [facility] 06/23/2024 12:24:57 03/24/20 24 Nail Debridement completed Cleveland Lagunas DPM [address], [place], [address], [facility] [employer] [facility] 03/24/2024 14:02:08 12/24/19 24 Nail Debridement completed [address], [place], [address], [employer] [facility] [facility] 12/24/2023 12:55:36 06/25/20 23 Nail Debridement completed Cleveland Lagunas DPM [address], [place], [address], [employer] [facility] 06/25/2023 11:38:10 03/26/20 23 Nail Debridement completed Cleveland Lagunas DPM [address], [place], [address], [facility] 03/26/2023 16:22:50 12/21/19 23 Nail Debridement completed Cleveland Lagunas DPM [address], [place], [address], [facility] 12/20/2022 12:53:51 09/21/19 23 Nail Debridement completed Cleveland Lagunas DPM [address], [place], [address], [facility] 09/20/2022 12:14:54 Remove tonsils and adenoids completed Not Available [facility] 09/05/2022 02:44:52 procedure on gallbladder completed Not Available [facility] 09/05/2022 02:44:52 Appendectomy completed Not Available [facility] 09/05/2022 02:44:52 Rotator cuff surgery completed Not Available [facility] 09/05/2022 02:44:52 Hysterectomy completed Not Available [facility] 09/05/2022 02:44:52 Imaging Results None recorded. Procedure Notes None recorded. Medical Equipment None Reported. Allergies Allergen ID Allergen Name Allergen Category Reaction Reaction Severity Criticality Documentation Date Start Date Code Code System Note Provider Name and Address Organization Details Recorded Time 4466 codeine medicatio n Not available Not available Not available 09/05/2022 2670 RxNorm Not Available [facility] 02:58:12 Medications Name Sig Start Date [...] injection administe red by the provider active [facility]: 0003- 0494- 20 Not Available Not [...] Relief 50 mcg/actuati on nasal spray,suspe nsion [place] 1 spray every day by intranasa l [...] Not Available No t Available Fluzone High-Dose 6450-3656 (PF) 180 mcg/0.5 mL intramuscul ar syringe [...] Updated DateTime 5 149.86 cm 28.3 kg/m2 80472.9 3 g 76 /min 14 /min 98 % 98 % Rose Buchanan [facility] 5 10:15:47 Date Recorded Body height Heart rate Respiratory rate Oxygen saturation Oxygen saturation in Arterial blood by Pulse oximetry Systolic blood pressure Diastolic blood pressure Provider Name and Address Organization Details Last Updated DateTime 4 149.86 cm 95 /min 14 /min 98 % 98 % 132 mm[Hg] 71 mm[Hg] Rose Buchanan [facility] 4 11:02:17 Date Recorded Body height Body mass index (BMI) Body weight Heart rate Respiratory rate Body temperature Oxygen saturation Oxygen saturation in Arterial blood by Pulse oximetry Systolic blood pressure Diastolic blood pressure Provider Name and Address Organization Details Last Updated DateTime 4 149.86 cm 28.3 kg/m2 11743.9 3 g 88 /min 14 /min 97.6 [degF] 98 % 98 % 130 mm[Hg] 70 mm[Hg] Sweta Mckeon [facility] 4 12:34:18 Date Recorded Body height Body mass index (BMI) Body weight Heart rate Respiratory rate Oxygen saturation Oxygen saturation in Arterial blood by Pulse oximetry Systolic blood pressure Diastolic blood pressure Provider Name and Address Organization Details Last Updated DateTime 4 149.86 cm 28.3 kg/m2 49938.9 3 g 82 /min 14 /min 98 % 98 % 130 mm[Hg] 65 mm[Hg] Rose Castro [place] [facility] 4 12:03:36 Date Recorded Body height Heart rate Respiratory rate Oxygen saturation Oxygen saturation in Arterial blood by Pulse oximetry Systolic blood pressure Diastolic blood pressure Provider Name and Address Organization Details Last Updated DateTime 3 149.86 cm 95 /min 14 /min 98 % 98 % 133 mm[Hg] 78 mm[Hg] Rose Castro [place] [facility] 3 11:15:10 Social History Question Answer Notes LastModified by [employer] Details LastModified Time Tobacco Smoking Status Former Smoker Not Available [facility] 09/05/2022 02:42:10 When Did You Quit Smoking? 17+yearssinc elastcigaret te [id number] Information not available 09/05/2022 Sex: Unknown Functional Status Question Answer Note LastModified by [employer] Details LastModified Time What is your level of alcohol consumption? None [id number] Information not available 09/05/2022 Mental Status None recorded. Family History Relationship Description Onset Age of this Age Resolved Age Notes LastModified by Organization Details LastModified Time Unspecified Relation Family history of stroke grands on [id number] Not available 09/05/2022 02:44:57 Father Family history of malignant neoplasm [id number].816 [id number] Not available 09/05/2022 02:44:57 Mother Hypertensive disorder [id number] [id number] Not available 09/05/2022 02:44:57 Mother Diabetes mellitus [id number] Not available 09/05/2022 02:44:57 Notes:father - lung cancer STROKE Medical History Condition Response BLINDNESS N KIDNEY STONES N MRSA N CARPAL TUNNEL SYNDROME N LUNG DISEASE/DISORDER Y HISTORY OF DRUG ABUSE N RADIATION / CHEMOTHERAPY N COPD Y SPORTS INJURY N ANKLE PAIN N BLOOD DISEASES N SCHIZOPHRENIA N SHOULDER PAIN N DEPRESSION (INCLUDING POST ) N BOWEL PROBLEMS N STROKE/TIA N ULCERS N KNEE PAIN [...] FOOT PROBLEM N HEART VALVE DISORDERS N SOFT TISSUE INJURY N ALLERGIES/HAYFEVER N INFECTIOUS DISEASE N HEART ARRHYTHMIA N INSOMNIA N RHEUMATOID ARTHRITIS N HIGH CHOLESTEROL / HYPERLIPIDEMIA N EDEMA N CHRONIC PAIN SYNDROME N CAROTID BLOCKAGE N BACK / NECK PROBLEMS N HAVE YOU BEEN HOSPITALIZED OR SEEN IN [facility] ER IN THE PAST YEAR ? N BURSITIS N HERNIATED DISC N DIALYSIS N FIBROMYALGIA N OSTEOPOROSIS N ARTHRITIS Y NO SIGNIFICANT PAST MEDICAL HISTORY N PERIPHERAL NEUROPATHY N DIABETES, TYPE Y HEARTBURN / REFLUX N HEPATITIS / LIVER DISEASE N GOUT N SLEEP DISORDER N ALZHEIMER'S DISEASE N HERPES N SEIZURES/EPILEPSY N HEADACHES/MIGRAINES N VASCULAR DISEASE N HIP PAIN N Blood Disorder N DIZZINESS N HEAD TRAUMA OR INJURY N HEART DISEASE/HEART PROBLEMS N MULTIPLE SCLEROSIS N CARDIAC ARRHYTHMIA N CANCER: SPECIFY N ANESTHESIA COMPLICATIONS N ATRIAL FIBRILLATION N AUTOIMMUNE DISEASE N Gynecological HistoryNo gynecological history recorded. Obstetrics History GPAL:G 0 P 0 0 0 0 Past Encounters Encounter ID Performer Location Encounter Start Date Encounter Closed Date Diagnosis/Indication Diagnosis SNOMED-CT Code Diagnosis ICD10 Code Diagnosis Note [id number] Cleveland Lagunas DPM [facility] [address] [address] 09/20/2020 00:00:00 09/20/2020 10:00:27 [id number] Cleveland Lagunas DPM [facility] [address] [address] 12/20/2020 00:00:00 12/20/2020 10:00:36 [id number] JADEN Dobson [facility] [address] [address] 01/10/2021 00:00:00 01/10/2021 10:04:32 [id number] Lexx Johnston MD [facility] [address] [address] 02/07/2021 00:00:00 02/07/2021 10:22:28 [id number] Cleveland Lagunas DPM [facility] [place] [address] [place] [address] 03/20/2021 00:00:00 03/20/2021 11:49:35 [id number] Cleveland Lagunas DPM [facility] [place] [address] [place] [address] 06/19/2021 00:00:00 06/19/2021 09:46:49 [id number] Cleveland Lagunas DPM [facility] [place] [address] [place] [address] 09/18/2021 00:00:00 09/18/2021 09:55:25 [id number] Cleveland Lagunas DPM [facility] [address] [address] 12/18/2021 00:00:00 12/18/2021 10:09:15 [id number] Cleveland Lagunas DPM [facility] [place] [address] [place] [id number] 0 03/29/2022 00:00:00 03/29/2022 11:05:11 [id number] Lexx Johnston MD [facility] [address] [address] 04/10/2022 00:00:00 04/10/2022 11:19:45 [id number] Cleveland Lagunas DPM [facility] [place] [address] [place] [id number] 06/21/2022 00:00:00 06/21/2022 10:40:26 [id number] Cleveland Lagunas DPM [facility] [address] [address] 09/20/2022 11:37:58 09/20/2022 14:05:41 Diabetic peripheral neuropathy 578303057 E11.40 Patient educated on neuropathy , diabetes, diabetic diet, and daily foot exams. Patient is to check feet daily for new wounds, blisters, redness to prevent infection and ulceration s to the feet. Patient will return to clinic in 3 months for diabetic foot workup. Dystrophia unguium 70491 009 L60.3 Nails 1 through 10 were debrided with sharp mechanical debridemen t without incident. Nails were debrided and greater than 50% length and thickness where needed. Unable to cut own toenails 881473613 Z74.1 Bunion 184818943 M21.61 1 M21.612 offloading to prevent wounds infection dailyConti nue supportive shoe- wide soft toe box shoes [id number] Cleveland Lagunas DPM [facility] [place] [address] [place] [id number] 12/20/2022 12:40:20 12/20/2022 13:58:46 Diabetic peripheral neuropathy 668541440 E11.40 continue diabetic control per PCP Dystrophia unguium 61164 009 L60.3 Nails were cut without incidentFo llow-up as needed Unable to cut own toenails 370327681 Z74.1 [id number] Cleveland Lagunas DPM [facility] [place] [address] [address] 03/26/2023 16:07:22 03/26/2023 16:37:14 Diabetic peripheral neuropathy 498703922 E11.40 continue diabetic control per PCPcheck feet daily for wounds infectionC ontinue supportive shoe gearFollow -up in 3 months for diabetic foot care Dystrophia unguium 29739 009 L60.3 Nails were cut without incidentFo llow-up as needed [id number] Cleveland Lagunas DPM [facility] [place] [address] [address] 06/25/2023 10:49:47 06/26/2023 11:43:46 Dystrophia unguium 87820717 L60.3 Nails were cut without incidentFo llow-up as needed Pain in toe 911817255 M7 9.674 M79.675 secondary to nails [id number] Cleveland Lagunas DPM [facility] [place] [address] [address] 12/24/2023 10:55:49 12/24/2023 15:50:07 Dystrophia unguium 07035032 L60.3 Nails were cut without incidentFo llow-up as needed Pain in toe 030894682 M7 9.674 M79.675 secondary to nails [id number] Cleveland Lagunas DPM [facility] [place] [address] [place] [id number] 03/24/2024 12:29:30 03/25/2024 15:35:41 Diabetes mellitus 47376440 E11.42 Continue diabetic control per PCP recommenda tions Diabetic p eripheral neuropathy 997836190 E11.40 check feet daily for wounds infectionC ontinue supportive shoe gearFollow -up in 3 months for diabetic foot care Dystrophia unguium 15233 009 L60.3 Nails were cut without incidentFo llow-up as needed [id number] Cleveland Lagunas DPM [facility] [place] [address] [place] [id number] 06/23/2024 11:59:13 07/06/2024 09:08:48 Diabetes mellitus 83714057 E11.42 Continue diabetic control per PCP recommenda tions Diabetic p eripheral neuropathy 479005087 E11.40 check feet daily for wounds infectionC ontinue supportive shoe gearFollow -up in 3 months for diabetic foot care Dystrophia unguium 69822 009 L60.3 Nails were cut without incidentFo llow-up as needed [id number] Cleveland Lagunas DPM [facility] [place] [place] [address] [place] [id number] 11/03/2024 10:03:11 11/04/2024 16:08:07 Diabetes mellitus 62012403 E11.42 Continue diabetic control per PCP recommenda tions Dystrophia unguium 01483 009 L60.3 Nails were cut without incidentFo llow-up as needed Diabetic p eripheral neuropathy 212637963 E11.40 check feet daily for wounds infectionC [...] Guarantor Name 06/25/2023 1 [place] Jasmyn Agustin Moncada [id number] Jasmyn Agustin Moncada 06/25/2023 1 [employer] (MEDICARE SUPPLEMENT) Jasmyn Agustin Moncada [id number] Jasmyn G Moncada 12/24/2023 1 [facility] (MEDICARE REPLACEMENT/A DVANTAGE - HMO) [id number] Jasmyn G Moncada [id number] Jasmyn G Moncada 03/24/2024 1 [facility] (MEDICARE REPLACEMENT/A DVANTAGE - HMO) [id number] Jasmyn G Moncada [id number] Jasmyn G Moncada 06/23/2024 1 [facility] (MEDICARE REPLACEMENT/A DVANTAGE - HMO) [id number] Jasmyn G Moncada [id number] Jasmyn G Moncada 11/03/2024 1 [facility] (MEDICARE REPLACEMENT/A DVANTAGE - HMO) [id number] Jasmyn G Moncada [id number] Jasmyn G Moncada Notes Date Note Type Note Provider Name and Address Organization Details Recorded Time 06/25/2023 text/html . Patient is 77-year-old female who returns the office for toe pain secondary to elongated nails. Patient denies any signs of infection to the toes. Patient denies any other complaints. Cleveland Lagunas DPM [address], [place], [address], [employer] 06/25/2023 11:38:46 12/24/2023 text/html . Patient is a [age] old female who returns the office for follow-up on routine nail care. Patient states she is painful toenails she denies any redness or drainage. Patient denies any other complaints. Cleveland Lagunas DPM [address], [place], [address], [employer] 12/24/2023 12:56:30 03/24/2024 text/html . Patient is [...] other complaints. Cleveland Lagunas DPM [address], [place], [address], [employer] 03/24/2024 14:03:18 06/23/2024 text/html . Patient is a 78-year-old female she returns to the office for diabetic foot care she states overall she is doing well denies any new complaints she has elongated nails she can not cut them and would like to have cut. Cleveland Lagunas DPM [address], [place], [address], [employer] 06/23/2024 12:25:23 11/03/2024 text/html . Patient is a 79-year-old female diabetic she presents for diabetic foot care she states overall she is doing well she denies any open wounds or injury of the foot. Patient states she would like her nails cut and denies any other complaints with her feet. Cleveland Lagunas DPM [address], [place], [address], [employer] 11/03/2024 11:17:24 OBGyn Episode No OBEpisode recorded.
--- OUTSIDE RECORDS SUMMARY | 2024-12-04 10:29 | XMS_ITS | Continuity of Care Document ---
Author Organization [facility] Address [address] [place] [address] Phone Care Team Providers Care Insurance Clerk Name Role Phone Chavez OD, Ruperto Unavailable Unavailable Advance Directives Directive Yes / No Effective Date File Name No Information Encounters Encounter Description Practice Location Reason(s) For Visit Diagnoses Date Provider Providers Copied on Encounter [facility], [address], [place], [place], [id number], [place] tel:[phone] [facility] No Information Nov-0 8-200 1 Chavez OD Ruperto. [address] , [address], [place], [address], [place]. tel:[phone] Family History Family Member Type Diagnosis Age At Onset No Information Payers Payer name Insurance type Covered democrat ID Authoriza tion(s) No Information Social History [...]
[2024-12-04 10:42] LABS: Alanine Aminotransferase 27 U/L (6-35); Albumin Level 4.4 g/dL (3.5-5.1); Alkaline Phosphatase 56 U/L (38-126); Anion Gap 12 mmol/L (4-12); Aspartate Amino Transferase 30 U/L (14-36); Bilirubin,Total 0.5 mg/dL (0.2-1.3); Blood Urea Nitrogen 9 mg/dL (7-17); Calcium 9.5 mg/dL (8.4-10.2); Carbon Dioxide 26 mmol/L (22-30); Chloride 102 mmol/L (98-107); Cholesterol 170 mg/dL (0-200); Estimated Glomerular Filt Rate > 60; Glucose 165 mg/dL (65-110); HDL Direct 49 mg/dL; Potassium 3.6 mmol/L (3.4-5.0); Sodium 140 mmol/L (137-145); Triglycerides 250 mg/dL (<150)
[2024-12-04 10:53] LABS: LDL Cholesterol Direct 85 mg/dL
[2024-12-04 10:57] LABS: Free T4 Free Thyroxine 1.71 ng/dL (0.78-2.19)
[2024-12-04 11:12] LABS: Thyroid Stimulating Hormone 0.793 uIU/mL (0.465-4.680)
[2024-12-04 11:27] LABS: Hemoglobin A1C 6.3 % (<5.7)
== END 2024-12-04 10:15 | disposition home or self-care (01) ==
PROVIDERS: PCP Nurse Practitioner; Visit Provider Nurse Practitioner
DX: E78.5 Hyperlipidemia, unspecified (principal); E53.8 Deficiency of other specified B group vitamins; E03.9 Hypothyroidism, unspecified; E11.9 Type 2 diabetes mellitus without complications
CPT/HCPCS: 36415; 80053; 80061; 82607; 83036; 84439; 84443

== ENCOUNTER 2025-03-23 16:02 | Outpatient (CLI) | payer MEDICARE, SELFPAY ==
--- OUTSIDE RECORDS SUMMARY | 2001-05-15 05:15 | XMS_ITS | Continuity of Care Document ---
Author Organization [facility] Address [address] [place] [address] Phone Care Team Providers Care Regulatory Specialist Name Role Phone Chavez OD, Ruperto Unavailable Unavailable Advance Directives Directive Yes / No Effective Date File Name No Information Encounters Encounter Description Practice Location Reason(s) For Visit Diagnoses Date Provider Providers Copied on Encounter [facility], [address], [place], [place], [id number], [place] tel:[phone] [facility] No Information Nov-0 8-200 1 Chavez OD Ruperto. [address] , [address], [place], [address], [place]. tel:[phone] Family History Family Member Type Diagnosis Age At Onset No Information Payers Payer name Insurance type Covered alliance party ID Authoriza tion(s) No Information Social History Type Description Quantity Date Captured Comments Sex Female Smoking Status No Information Chief Complaint And Reason For Visit No Information Reason For Referral Reason For Referral No Information History Of Present Illness Encounter Date Complaint History Of Prese nt Illness No Information Functional Status Date Functional Assessmen t No Information Instructions Date Instruction Additional Infor mation No Information Assessments Type Assessment Date No Information Patient Care Teams Name Effective Dates (start - stop) Status Members No Information
--- NOTE | ~2025-03-23 | CT_ITS ---
EXAMINATION: CT diagnostic chest wo con DATE: 03/23/2025 16:27 INDICATION: Emphysema TECHNIQUE: Computed tomography (CT) of the chest was performed without intravenous contrast. The dose-length product was 135.95 mGy-cm. Automated exposure control and iterative reconstruction technique were employed. COMPARISON: CT dated 02/26/2023 FINDINGS: There is atherosclerosis of the aorta and coronary arteries. Heart size normal. No significant pleural or pericardial effusion. There are cholecystectomy clips. There is a 1.3 cm left renal cyst. There are a few scattered groundglass opacities bilaterally. No endobronchial lesions. No significant pleural effusion. No pneumothorax. No endobronchial lesions. There are small pulmonary nodules in the upper lobes measuring 2 mm or less. There is severe thoracic and upper lumbar spondylosis. Accentuated kyphosis. IMPRESSION: 1. Patchy groundglass opacities. Differential diagnosis includes infectious/inflammatory process, hypoventilatory changes related to low lung volumes or early interstitial lung disease. 2: Small pulmonary nodules measuring 2 mm or less, likely benign. Reviewed, dictated and finalized at location O. IMPRESSION: 1. Patchy groundglass opacities. Differential diagnosis includes infectious/inf lammatory process, hypoventilatory changes related to low lung volumes or early interstitial lung disease. 2: Small pulmonary nodules measuring 2 mm or less, likely benign.
--- OUTSIDE RECORDS SUMMARY | 2025-03-23 16:52 | XMS_ITS | Clinical Summary ---
Author Organization [facility] Address [address] [place] [address] Care Team Providers Care Education Faculty Member Name Role Phone Jaya Mattson MD Primary Care Provider [phone] Source Comments [facility],non-owned Affiliates and Associated Physician Practices is amultiple site organization consisting of ambulatory clinics and hospital sitesin [place], [place], [place] and [place]. This disclosure is being madepursuant to the Care Everywhere program and may not contain all information available regarding this patient. Last updated 18.[facility] Allergies Active Allergy Reactions Criticality Noted Date [...] yrs (1 - 1-dose 75+ series) 2021 DEPRESSION SCREENING 07/08/2024 COVID-19 VACCINE ( - 2023-2 5 season) 2025 INFLUENZA VACCINE (#1) 2025 HEPATITIS B VACCINE Aged Out No [...] to complete this topic Insurance COMMERCIAL GENERIC Member Subscriber Plan / Payer (Ef fective for All Dates) Name:Rascon Jasmyn G Relation to Subscriber:Self Name:Jasmyn Rascon Nikole Payer ID:Not on file Group ID:Not on file Type:[employer] Address: [place] [address] MEDICARE Member Subscriber Plan / Payer (Ef fective 2010-Present) Name:Rascon Jasmyn Nikole Member ID:[id number] Relation to Subscriber:Self Name:Jasmyn Rascon Nikole Subscriber ID:[id number] Payer ID:Not on file Group ID:Not on file Type:Medicare Address: [place] [id number] MEDICARE [employer] Care Teams Education Faculty Member Relationship Specialty Start Date End Date Jaya Mattson MD [address] [place] [address] PCP - General 08/01/20
== END 2025-03-23 16:03 | disposition home or self-care (01) ==
PROVIDERS: PCP Nurse Practitioner; Visit Provider Physician Assistant
DX: J98.4 Other disorders of lung (principal); R07.9 Chest pain, unspecified; R91.8 Other nonspecific abnormal finding of lung field
CPT/HCPCS: 71250

== ENCOUNTER 2025-06-17 15:03 | Outpatient (CLI) | payer MEDICARE, SELFPAY ==
[2025-06-17 15:57] LABS: Alanine Aminotransferase 23 U/L (6-35); Albumin Level 4.4 g/dL (3.5-5.1); Alkaline Phosphatase 51 U/L (38-126); Anion Gap 6 mmol/L (4-12); Aspartate Amino Transferase 27 U/L (14-36); Bilirubin,Total 0.4 mg/dL (0.2-1.3); Blood Urea Nitrogen 11 mg/dL (7-17); Calcium 9.2 mg/dL (8.4-10.2); Carbon Dioxide 27 mmol/L (22-30); Chloride 104 mmol/L (98-107); Cholesterol 151 mg/dL (0-200); Estimated Glomerular Filt Rate > 60; Glucose 125 mg/dL (65-110); HDL Direct 45 mg/dL; Potassium 3.3 mmol/L (3.4-5.0); Sodium 137 mmol/L (137-145); Total Protein 7.3 g/dL (6.3-8.2); Triglycerides 204 mg/dL (<150)
[2025-06-17 16:13] LABS: Hemoglobin A1C 6.4 % (<5.7)
[2025-06-17 16:33] LABS: Thyroid Stimulating Hormone 3.130 uIU/mL (0.465-4.680)
== END 2025-06-17 15:04 | disposition home or self-care (01) ==
PROVIDERS: PCP Nurse Practitioner; Visit Provider Nurse Practitioner
DX: E78.5 Hyperlipidemia, unspecified (principal); E11.9 Type 2 diabetes mellitus without complications; E03.9 Hypothyroidism, unspecified
CPT/HCPCS: 36415; 80053; 80061; 83036; 84443